=== PATIENT | male | born 1935 | race Caucasian/White ===

== ENCOUNTER 2016-12-31 18:29 | Emergency (ER) | payer MEDICARE, BC ==
[2016-12-31] MEDS ORDERED: Gelfoam 12-7 ADSORBABL SPONGE* 1 EA SPONGE TOPICAL ONE (20:41)
[2016-12-31 20:49] VITALS: BP 149/92
[2016-12-31] MEDS ORDERED: Clindamycin CAP* 150 MG PO ONE (20:49)
[2016-12-31] MEDS ORDERED: Tetan/Diph/Pertus SYR(Tdap)* 0.5 ML SYR(BOOSTRIX) use SYR IM ONE (20:52)
--- NOTE | 2016-12-31 21:18 | UC ---
Skin Complaint HPI - HPI Summary HPI Summary: CHRONIC BILATERAL LEG EDEMA, HAD SKIN TEAR ONE WEEK AGO. WOUND IS NOT HEALING; TENDERNESS AND REDNESS ARE DEVELOPING AROUND WOUND SITE. WOULD LIEK REFERREAL TO WOUND CLINIC; HAD COMPLICATIONS WITH LEG CELLULITIS IN PAST. - History of Current Complaint Chief Complaint: UCWounds Time Seen by Provider: 12/31/16 20:29 Stated Complaint: WOUND CHECK Hx Obtained From: Patient, Family/Energy Specialist Onset/Duration: Gradual Onset, Lasting Weeks, Still Present Skin Exposure Onset/Duration: Weeks Ago Onset Severity: Mild Current Severity: Moderate Location: Discrete - LEFT LOWER LEG Character: Swelling, Redness, Painful Aggravating: Touch Alleviating: Nothing Associated Signs & Symptoms: Positive: Rash, Drainage, Tenderness. Negative: Fever, Chills, Cough, Hoarseness, Throat Tightening, Bruising, Red Streaks, Joint Swelling Related History: Trauma - Allergy/Home Medications Allergies/Adverse Reactions: Allergies Allergy/AdvReac Type Severity Reaction Status Date / Time Cefadroxil [From Duricef] AdvReac Severe GI Upset Verified 12/31/16 18:44 Hydroxyzine [From Atarax] AdvReac Severe GI Upset Verified 12/31/16 18:44 Metolazone AdvReac Severe Hypotension Verified 12/31/16 18:44 Amoxicillin [From Augmentin] AdvReac Intermediate Nausea And Verified 12/31/16 18:44 Vomiting Cephalexin [From Keflex] AdvReac Intermediate Nausea And Verified 12/31/16 18:44 Vomiting Clavulanic Acid AdvReac Intermediate Nausea And Verified 12/31/16 18:44 [From Augmentin] Vomiting Home Medications: Home Medications Ferrous Gluconate TAB* [Fergon TAB*] 1 tab PO 12/31/16 [History] Review of Systems Constitutional: Negative Skin: Rash Eyes: Negative ENT: Negative Respiratory: Negative Cardiovascular: Negative Gastrointestinal: Negative Genitourinary: Negative Motor: Negative Neurovascular: Negative Musculoskeletal: Arthralgia, Edema, Myalgia Neurological: Negative Psychological: Negative All Other Systems Reviewed And Are Negative: Yes PMH/Surg Hx/FS Hx/Imm Hx Previously Healthy: Yes Other History Of: Anticoagulant Therapy - Xarelto - Surgical History Surgical History: Yes Surgery Procedure, Year, and Place: Abdominal aortic aneurysm repairs x4, [facility]. R aneurysm inguinal, [place]. Pacemaker placement, 06/2007, [facility] [place]; replaced 03/14/15. Spinal fusion x 2013, [facility]. Choleycystectomy, 11/2012, [facility] [place]. Right rotator cuff surgery, 09/2012, [facility] - Family History Known Family History: Positive: None Family History: No FHx anesthesia reaction - Social History Occupation: Retired Lives: With Family Alcohol Use: None Substance Use Type: None Smoking Status (MU): Former Smoker When Did the Patient Quit Smoking/Using Tobacco: 1968 - Immunization History Most Recent Influenza Vaccination: 03/08/15 Most Recent Tetanus Shot: 2012 Most Recent Pneumonia Vaccination: 2013 Physical Exam Triage Information Reviewed: Yes Appearance: Well-Appearing, No Pain Distress, Well-Nourished Vital Signs: Initial Vital Signs Temp 97.5 F 12/31/16 18:38 Pulse 67 12/31/16 18:38 Resp 18 12/31/16 18:38 BP 146/93 12/31/16 18:38 Pulse Ox 94 12/31/16 18:38 Vital Signs Reviewed: Yes Eye Exam: Normal ENT Exam: Normal ENT: Positive: Normal ENT inspection Dental Exam: Normal Neck exam: Normal Neck: Positive: Supple, Nontender, No Lymphadenopathy Respiratory Exam: Normal Respiratory: Positive: Chest non-tender, Lungs clear, Normal breath sounds, No respiratory distress, No accessory muscle use Cardiovascular Exam: Normal Cardiovascular: Positive: RRR, No Murmur, Pulses Normal Abdominal Exam: Normal Musculoskeletal: Positive: Strength Intact, ROM Intact, Edema @ - BILATERAL LOWER LEGS Neurological Exam: Normal Psychological Exam: Normal Skin: Positive: Other - SKIN TEAR 3CM X 2CM ANTERIOR LEFT LEG Course/Dx - Differential Diagnoses - Skin Complaint Differential Diagnoses: Cellulitis, Diabetes, Lymphadenitis, Lymphangitis - Diagnoses Provider Diagnoses: LEFT LEG CELLULITIS; CHRONIC BILATERAL LEG EDEMA; SKIN TEAR LEFT ANTERIOR LEG Discharge - Discharge Plan Condition: Stable Disposition: HOME Prescriptions: Clindamycin Cap(NF) [Cleocin 300 mg Cap(NF)] 300 mg PO TID #30 cap Patient Education Materials: Diphtheria/Pertussis/Tetanus Vaccine (By injection ), Cellulitis (ED), Skin Tear (ED) Referrals: Venancio Otero MD [Medical Doctor] - Faiza FRANCOIS,Luh Avila [Primary Care Provider] - Additional Instructions: YOU HAVE BEEN REFERRED TO THE [facility] [place] [facility] FOR PROMPT EVALUATION; PLEASE CALL [phone] TO SET UP AN APPOINTMENT.
== END 2016-12-31 21:25 | disposition home or self-care (01) ==
LOC: UCEAST 18:29
DX: S81.812A Laceration without foreign body, left lower leg, initial encounter (principal); L03.116 Cellulitis of left lower limb; X58.XXXA Exposure to other specified factors, initial encounter; Y92.9 Unspecified place or not applicable
CPT/HCPCS: 90471; 90715; 99212; A9270-GY; G0463

== ENCOUNTER 2017-01-03 11:33 | Emergency (ER) | payer MEDICARE, BC ==
[2017-01-03 12:09] VITALS: BP 131/86
--- NOTE | 2017-01-03 12:45 | UC ---
Skin Complaint HPI - HPI Summary HPI Summary: SKIN TEAR LEFT ANTERIOR LEG. TREATED WITH CLINDAMYCIN AND GELFOAM 12/31/16. HISTORY OF CHRONIC BILATERAL LEG EDEMA. LAST NIGHT VOMITING, DIARRHEA FEELING WEAK. NO FEVER. - History of Current Complaint Chief Complaint: UCGeneralIllness Time Seen by Provider: 01/03/17 12:06 Stated Complaint: SKIN COMPLAINT Hx Obtained From: Patient Onset/Duration: Gradual Onset, Lasting Weeks Skin Exposure Onset/Duration: Weeks Ago Onset Severity: Mild Current Severity: Moderate Location: Discrete - LEFT ANTERIOR LEG Character: Redness, Painful Aggravating: Touch Alleviating: Nothing Associated Signs & Symptoms: Positive: Nausea, Vomiting, Rash, Drainage, Tenderness, Red Streaks. Negative: Fever, Chills Related History: Trauma - Allergy/Home Medications Allergies/Adverse Reactions: Allergies Allergy/AdvReac Type Severity Reaction Status Date / Time Cefadroxil [From Duricef] AdvReac Severe GI Upset Verified 01/03/17 12:10 Hydroxyzine [From Atarax] AdvReac Severe GI Upset Verified 01/03/17 12:10 Metolazone AdvReac Severe Hypotension Verified 01/03/17 12:10 Amoxicillin [From Augmentin] AdvReac Intermediate Nausea And Verified 01/03/17 12:10 Vomiting Cephalexin [From Keflex] AdvReac Intermediate Nausea And Verified 01/03/17 12:10 Vomiting Clavulanic Acid AdvReac Intermediate Nausea And Verified 01/03/17 12:10 [From Augmentin] Vomiting Review of Systems Constitutional: Fatigue Skin: Rash Eyes: Negative ENT: Negative Respiratory: Negative Cardiovascular: Negative Gastrointestinal: Vomiting, Diarrhea, Nausea Genitourinary: Negative Motor: Negative Neurovascular: Negative Musculoskeletal: Edema Neurological: Negative Psychological: Negative All Other Systems Reviewed And Are Negative: Yes PMH/Surg Hx/FS Hx/Imm Hx Previously Healthy: Yes Other History Of: Anticoagulant Therapy - Xarelto - Surgical History Surgical History: Yes Surgery Procedure, Year, and Place: Abdominal aortic aneurysm repairs x4, [facility]. R aneurysm inguinal, [place]. Pacemaker placement, 06/2007, [facility] [place]; replaced 03/14/15. Right shoulder surgery. Gallbladder removed. Spinal fusion x , 2013, [facility]. Choleycystectomy, 11/2012, [facility] [place]. Right rotator cuff surgery, 09/2012, [facility] - Family History Known Family History: Positive: None Family History: No FHx anesthesia reaction - Social History Occupation: Retired Lives: With Family Alcohol Use: None Substance Use Type: None Smoking Status (MU): Former Smoker When Did the Patient Quit Smoking/Using Tobacco: 1968 - Immunization History Most Recent Influenza Vaccination: 03/08/15 Most Recent Tetanus Shot: 2012 Most Recent Pneumonia Vaccination: 2013 Physical Exam Triage Information Reviewed: Yes Appearance: Well-Appearing, No Pain Distress, Well-Nourished Vital Signs: Initial Vital Signs Temp 97.4 F 01/03/17 12:05 Pulse 80 01/03/17 12:05 Resp 16 01/03/17 12:05 BP 131/86 01/03/17 12:05 Pulse Ox 95 01/03/17 12:05 Vital Signs Reviewed: Yes Eye Exam: Normal ENT Exam: Normal ENT: Positive: Normal ENT inspection, Hearing grossly normal, TMs normal Dental Exam: Normal Neck exam: Normal Neck: Positive: Supple, Nontender, No Lymphadenopathy Respiratory Exam: Normal Respiratory: Positive: Chest non-tender, Lungs clear, Normal breath sounds, No respiratory distress, No accessory muscle use Cardiovascular Exam: Normal Cardiovascular: Positive: RRR, No Murmur, Pulses Normal, Brisk Capillary Refill Abdominal Exam: Normal Abdomen Description: Positive: Nontender, No Organomegaly Bowel Sounds: Positive: Absent Musculoskeletal: Positive: Strength Intact, ROM Intact, Edema @ - BILATERAL LEG EDEMA Neurological Exam: Normal Psychological Exam: Normal Skin: Positive: Other - ERYTHEMA LEFT ANTERIOR LEG Course/Dx - Differential Diagnoses - Skin Complaint Differential Diagnoses: Abscess, Cellulitis, Dehydration - Diagnoses Provider Diagnoses: CHRONIC BILATERAL LEG EDEMA. LEFT ANTERIOR LEG SKIN TEAR, CELLULITIS, FAILURE OF OUT PATIENT ANTIBIOTIC THERAPY - Physician Notification/Consults Discussed Patient Care With: Melody Blount Time Discussed With Above Provider: 12:15 Instructed by Provider To: MD Will See In ED Discharge - Discharge Plan Condition: Stable Disposition: TRANS HIGHER LVL OF CARE FAC
== END 2017-01-03 12:35 | disposition short-term general hospital (02) ==
LOC: UCEAST 11:33
DX: R60.9 Edema, unspecified (principal); S81.812D Laceration without foreign body, left lower leg, subsequent encounter; L03.116 Cellulitis of left lower limb; Z87.891 Personal history of nicotine dependence
CPT/HCPCS: 99212; G0463

== ENCOUNTER 2017-01-03 13:25 | Emergency (ER) | payer MEDICARE, BC ==
[2017-01-03] MEDS ORDERED: Vancomycin(*) 1,000 MG in NS 0.9% 250 ML* 250 ML IVPB ONE (13:59)
[2017-01-03] MEDS ORDERED: Ciprofloxacin 400MG IVPREMIX(* 400 MG/200 ML BAG IVPB ONE (13:59)
[2017-01-03] MEDS ORDERED: NS 0.9% 1000 ML* 1,000 ML IV ONE (14:00)
[2017-01-03] MEDS ORDERED: metroNIDAZOLE IV 500 MG/100ML* 500 MG/100 ML BAG IVPB ONE (14:00)
[2017-01-03] MEDS ORDERED: Ondansetron INJ* 2 MG/ML VIAL IV ONE (14:37)
[2017-01-03 14:41] LABS: Hematocrit 39 % (42-52); Hemoglobin 13.1 g/dl (14.0-18.0); Mean Corpuscular HGB Conc 34 g/dl (31-36); Mean Corpuscular Hemoglobin 33 pg (27-31); Mean Corpuscular Volume 97 fL (80-94); Mean Platelet Volume 7 um3 (7.4-10.4); Red Cell Distribution Width 16 % (10.5-15); White Blood Count 4.8 10^3/ul (3.5-10.8)
[2017-01-03 14:56] LABS: Albumin 3.5 g/dL (3.2-5.2); BUN/Creatinine Ratio 41.9 (8-20); Calcium 8.9 mg/dL (8.6-10.3); EGFR African American 71.8 (>60); EGFR Non-African American 55.8 (>60); Globulin 2.9 g/dL (2-4); Potassium 4.9 mmol/L (3.5-5.0); Total Bilirubin 1.4 mg/dL (0.2-1.0); Total Protein 6.4 g/dL (6.4-8.9)
[2017-01-03 15:38] LABS: Urine Bacteria Absent (Absent); Urine Bilirubin Negative (Negative); Urine Glucose Negative (Negative); Urine Nitrite Negative (Negative)
--- NOTE | 2017-01-03 18:24 | ED ---
Jerardo Beebe Salem, scribed for Jese Goldberg MD on 01/03/17 at 1414 . Lower Extremity - HPI Summary HPI Summary: Patient is a 81 y/o M who presents to the ED with an open wound to his LLE for the past week. His , who is a former nurse, states that pt hit his leg on the corner of the oven door. Per , 3 days ago, area surrounding wound was warm to touch and erythematous. He was seen at the urgent care on this day and given Clindamycin, but he has not been able to tolerate it. He reports vomiting , but denies diarrhea. Pt also denies pain to wound or abd pain, but reports non -purulent drainage and weakness. Pt has a hx of bleeding excessively and healing slowly, per . He also has a hx of edema, worse in LLE. He has an appointment with the wound clinic in 5 days. No PMHx of DM. Pt takes 81 mg of ASA. - History of Current Complaint Chief Complaint: EDRashSkinAbscess Stated Complaint: LT LEG LAC Time Seen by Provider: 01/03/17 13:38 Hx Obtained From: Patient, Family/Cell Attendant Helper Mechanism Of Injury: Direct Blow Onset of Pain: Immediate Onset/Duration: Days Severity Initially: Moderate Severity Currently: Moderate Pain Intensity: 0 Pain Scale Used: 0-10 Numeric Timing: Constant Location: Is Discrete @ - LLE. Associated Signs And Symptoms: Positive: Negative Aggravating Factor(s): Nothing Alleviating Factor(s): Nothing Able to Bear Weight: Yes - Allergies/Home Medications Allergies/Adverse Reactions: Allergies Allergy/AdvReac Type Severity Reaction Status Date / Time Cefadroxil [From Duricef] AdvReac Severe GI Upset Verified 01/03/17 12:10 Hydroxyzine [From Atarax] AdvReac Severe GI Upset Verified 01/03/17 12:10 Metolazone AdvReac Severe Hypotension Verified 01/03/17 12:10 Amoxicillin [From Augmentin] AdvReac Intermediate Nausea And Verified 01/03/17 12:10 Vomiting Cephalexin [From Keflex] AdvReac Intermediate Nausea And Verified 01/03/17 12:10 Vomiting Clavulanic Acid AdvReac Intermediate Nausea And Verified 01/03/17 12:10 [From Augmentin] Vomiting PMH/Surg Hx/FS Hx/Imm Hx Endocrine/Hematology History: Reports: Hx Anticoagulant Therapy - Xarelto, Hx Thyroid Disease, Hx Anemia Denies: Hx Diabetes Cardiovascular History: Reports: Hx Aneurysm - multiple including AAA, Hx Congestive Heart Failure, Hx Coronary Artery Disease, Hx Hypertension, Hx Pacemaker/ICD - 9/03/20, Hx Peripheral Vascular Disease, Other Cardiovascular Problems/Disorders - right groin aneurysm Respiratory History: Reports: Hx Sleep Apnea - CPAP 8cm Denies: Hx Asthma - "but coughs", Hx Chronic Obstructive Pulmonary Disease ( COPD) GI History: Reports: Hx Hiatal Hernia - bulge but no pain or other symptoms Denies: Hx Ulcer Comment Only: Hx Gastrointestinal Bleed - this admission History: Denies: Hx Renal Disease Musculoskeletal History: Reports: Hx Back Problems Denies: Hx Arthritis, Hx Rheumatoid Arthritis, Hx Osteoporosis Sensory History: Reports: Hx Contacts or Glasses - reading glasses, Hx Macular Degeneration - R eye Opthamlomology History: Reports: Hx Contacts or Glasses - reading glasses, Hx Macular Degeneration - R eye Neurological History: Reports: Hx Migraine Denies: Hx Dementia, Hx Headaches, Hx Seizures, Hx Transient Ischemic Attacks (TIA) Psychiatric History: Denies: Hx Substance Abuse - Surgical History Surgery Procedure, Year, and Place: Abdominal aortic aneurysm repairs x4, [facility]. R aneurysm inguinal, [place]. Pacemaker placement, 06/2007, [facility] [place]; replaced 03/14/15. Right shoulder surgery. Gallbladder removed. Spinal fusion x , 2013, [facility]. Choleycystectomy, 11/2012, [facility] [place]. Right rotator cuff surgery, 09/2012, [facility] Hx Anesthesia Reactions: No Infectious Disease History: No Infectious Disease History: Denies: Hx Clostridium Difficile, Hx Hepatitis, Hx Human Immunodeficiency Virus (HIV), Hx of Known/Suspected MRSA, Hx Shingles, Hx Tuberculosis, Hx Known/ Suspected VRE, Hx Known/Suspected VRSA, History Other Infectious Disease, Traveled Outside the [place] in Last 30 Days - Family History Known Family History: Positive: Cardiac Disease - Social History Alcohol Use: Rare Hx Substance Use: No Substance Use Type: Reports: None Hx Tobacco Use: Yes Smoking Status (MU): Former Smoker Review of Systems Positive: Vomiting. Negative: Abdominal Pain, Diarrhea Positive: Edema Skin: Other - No pain. Positive: Other - LLE wound: warm to touch and erythematous. Non-purulent drainage Positive: Weakness All Other Systems Reviewed And Are Negative: Yes Physical Exam - Summary Physical Exam Summary: The patient is well-nourished in no acute distress and in no acute pain. The skin is warm and dry and skin color reflects adequate perfusion. HEENT: The head is normocephalic and atraumatic. The pupils are equal and reactive. The conjunctivae are clear and without drainage. Nares are patent and without drainage. Mouth reveals dry mucous membranes and the throat is without erythema and exudate. Neck is supple with full range of motion and non-tender. There are no carotid bruits. There is no neck vein distension. Respiratory: Chest is non-tender. Lungs are clear to auscultation and breath sounds are symmetrical and equal. Cardiovascular: Heart is regular rate and rhythm. There is no murmur or rub auscultated. Pulses are symmetrical and equal. Abdomen: The abdomen is soft, non-tender, and obese. There are normal bowel sounds heard in all four quadrants. Musculoskeletal: There is no back pain noted. Extremities are non-tender with full range of motion. There is good capillary refill and good pulses. LLE: large area of erythema. Area of open wound: 1 cm. No debridement. No lymphangitis. Marked edema. Full ROM. Neurological: Patient is alert and oriented to person, place and time. The patient has symmetrical motor strength in all four extremities. Psychiatric: The patient has an appropriate affect and does not exhibit any anxiety or depression. Triage Information Reviewed: Yes Vital Signs On Initial Exam: Initial Vitals Temp Pulse Resp BP Pulse Ox 97.0 F 79 16 158/91 95 01/03/17 13:28 01/03/17 13:28 01/03/17 13:28 01/03/17 13:28 01/03/17 13:28 Vital Signs Reviewed: Yes - Gael Coma Scale Coma Scale Total: 15 Diagnostics - Vital Signs Vital Signs Temp Pulse Resp BP Pulse Ox 01/03/17 13:45 97.5 F 71 12 128/83 98 01/03/17 13:28 97.0 F 79 16 158/91 95 - Laboratory Lab Results: Lab Results 01/03/17 01/03/17 01/03/17 Range/Units 14:13 14:13 14:13 WBC 4.8 (3.5-10.8) 10^3/ul RBC 4.00 (4.0-5.4) 10^6/ul Hgb 13.1 L (14.0-18.0) g/dl Hct 39 L (42-52) % MCV 97 H (80-94) fL MCH 33 H (27-31) pg MCHC 34 (31-36) g/dl RDW 16 H (10.5-15) % Plt Count 131 L (150-450) 10^3/ul MPV 7 L (7.4-10.4) um3 Neut % (Auto) 68.8 (38-83) % Lymph % (Auto) 15.1 L (25-47) % Thayer % (Auto) 10.8 H (1-9) % Eos % (Auto) 4.8 (0-6) % Baso % (Auto) 0.5 (0-2) % Absolute Neuts (auto) 3.3 (1.5-7.7) 10^3/ul Absolute Lymphs (auto) 0.7 L (1.0-4.8) 10^3/ul Absolute Monos (auto) 0.5 (0-0.8) 10^3/ul Absolute Eos (auto) 0.2 (0-0.6) 10^3/ul Absolute Basos (auto) 0 (0-0.2) 10^3/ul Absolute Nucleated RBC 0 10^3/ul Nucleated RBC % 0 INR (Anticoag Therapy) 1.03 (0.89-1.11) APTT 29.0 (26.0-36.3) seconds Sodium 135 (133-145) mmol/L Potassium 4.9 (3.5-5.0) mmol/L Chloride 107 (101-111) mmol/L Carbon Dioxide 21 L (22-32) mmol/L Anion Gap 7 (2-11) mmol/L BUN 52 H (6-24) mg/dL Creatinine 1.24 H (0.67-1.17) mg/dL Est GFR ( Amer) 71.8 (>60) Est GFR (Non-Af Amer) 55.8 (>60) BUN/Creatinine Ratio 41.9 H (8-20) Glucose 97 (70-100) mg/dL Lactic Acid (0.5-2.0) mmol/L Calcium 8.9 (8.6-10.3) mg/dL Total Bilirubin 1.40 H (0.2-1.0) mg/dL AST 17 (13-39) U/L ALT 15 (7-52) U/L Alkaline Phosphatase 58 (34-104) U/L Total Protein 6.4 (6.4-8.9) g/dL Albumin 3.5 (3.2-5.2) g/dL Globulin 2.9 (2-4) g/dL Albumin/Globulin Ratio 1.2 (1-3) Urine Color Urine Appearance Urine pH (5-9) Ur Specific [place] (1.010-1.030) Urine Protein (Negative) Urine Ketones (Negative) Urine Blood (Negative) Urine Nitrate (Negative) Urine Bilirubin (Negative) Urine Urobilinogen (Negative) Ur Leukocyte Esterase (Negative) Urine WBC (Auto) (Absent) Urine RBC (Auto) (Absent) Urine Bacteria (Absent) Urine Glucose (Negative) 01/03/17 01/03/17 Range/Units 14:13 15:15 WBC (3.5-10.8) 10^3/ul RBC (4.0-5.4) 10^6/ul Hgb (14.0-18.0) g/dl Hct (42-52) % MCV (80-94) fL MCH (27-31) pg MCHC (31-36) g/dl RDW (10.5-15) % Plt Count (150-450) 10^3/ul MPV (7.4-10.4) um3 Neut % (Auto) (38-83) % Lymph % (Auto) (25-47) % Thayer % (Auto) (1-9) % Eos % (Auto) (0-6) % Baso % (Auto) (0-2) % Absolute Neuts (auto) (1.5-7.7) 10^3/ul Absolute Lymphs (auto) (1.0-4.8) 10^3/ul Absolute Monos (auto) (0-0.8) 10^3/ul Absolute Eos (auto) (0-0.6) 10^3/ul Absolute Basos (auto) (0-0.2) 10^3/ul Absolute Nucleated RBC 10^3/ul Nucleated RBC % INR (Anticoag Therapy) (0.89-1.11) APTT (26.0-36.3) seconds Sodium (133-145) mmol/L Potassium (3.5-5.0) mmol/L Chloride (101-111) mmol/L Carbon Dioxide (22-32) mmol/L Anion Gap (2-11) mmol/L BUN (6-24) mg/dL Creatinine (0.67-1.17) mg/dL Est GFR ( Amer) (>60) Est GFR (Non-Af Amer) (>60) BUN/Creatinine Ratio (8-20) Glucose (70-100) mg/dL Lactic Acid 1.0 (0.5-2.0) mmol/L Calcium (8.6-10.3) mg/dL Total Bilirubin (0.2-1.0) mg/dL AST (13-39) U/L ALT (7-52) U/L Alkaline Phosphatase (34-104) U/L Total Protein (6.4-8.9) g/dL Albumin (3.2-5.2) g/dL Globulin (2-4) g/dL Albumin/Globulin Ratio (1-3) Urine Color Yellow Urine Appearance Clear Urine pH 5.0 (5-9) Ur Specific [place] 1.013 (1.010-1.030) Urine Protein Negative (Negative) Urine Ketones Negative (Negative) Urine Blood 2+ H (Negative) Urine Nitrate Negative (Negative) Urine Bilirubin Negative (Negative) Urine Urobilinogen Negative (Negative) Ur Leukocyte Esterase Negative (Negative) Urine WBC (Auto) Absent (Absent) Urine RBC (Auto) Trace(0-2/hpf) (Absent) Urine Bacteria Absent (Absent) Urine Glucose Negative (Negative) Result Diagrams: 01/03/17 14:13 01/03/17 14:13 Lab Statement: Any lab studies that have been ordered have been reviewed, and results considered in the medical decision making process. Re-Evaluation - Re-Evaluation First Eval Re-Evaluation Time: 15:16 Comment: Reviewed labs with pt. Pt would like to be DC'd home. Lower Extremity Course/Dx - Course Course Of Treatment: 81 y/o M presents with an open wound to his LLE for the past week. Per , 3 days ago, area surrounding wound was warm to touch and erythematous. Pt denies pain to wound or abd pain, but reports non-purulent drainage and weakness. He received Cipro, Vancomycin, Flagyl, Zofran, and fluids in the ED course. Pt would like to be DC'd. Will be sent home with Zofran and Bactrim. - Diagnoses Differential Diagnosis/HQI/PQRI: Positive: Cellulitis, Infection, Osteomyelitis , Other - dehydration Provider Diagnoses: Cellulitis of left lower extremity, Dehydration Discharge - Discharge Plan Condition: Stable Disposition: HOME Prescriptions: Ondansetron ODT TAB* [Zofran 4 MG Odt TAB*] 4 mg PO Q8H PRN #20 tab.odt PRN Reason: Nausea Sulfamethox/Trimethoprim DS* [Bactrim DS 800/160 TAB*] 1 tab PO BID #20 tab Patient Education Materials: Dehydration (ED), Cellulitis (ED) Referrals: Faiza FRANCOIS,Luh Avila [Primary Care Provider] - Additional Instructions: Please follow up with your primary care provider. The documentation as recorded by the Jerardo clark Salem accurately reflects the service I personally performed and the decisions made by , Jese Goldberg MD.
[2017-01-03 19:10] VITALS: BP 125/78
== END 2017-01-03 19:13 | disposition home or self-care (01) ==
LOC: ED 13:25
DX: R11.10 Vomiting, unspecified (principal); E86.0 Dehydration; L03.116 Cellulitis of left lower limb; R60.9 Edema, unspecified; Z87.891 Personal history of nicotine dependence; R53.1 Weakness
CPT/HCPCS: 36415; 80053; 81003; 81015; 83605; 85025; 85610; 85730; 87040; 87070; 87077; 87186; 87205; 87640; 87641; 96374; 99282; J0744; J2405; J3370

== ENCOUNTER 2017-06-02 17:12 | Emergency (ER) | payer MEDICARE, BC ==
[2017-06-02 17:43] VITALS: BP 139/89
[2017-06-02] MEDS ORDERED: Tetan/Diph/Pertus SYR(Tdap)* 0.5 ML SYR(BOOSTRIX) use SYR IM ONE ×2 (19:06→19:23)
--- NOTE | 2017-06-02 19:27 | UC ---
Minor Trauma HPI - HPI Summary HPI Summary: 81 year old male here with injury of right arm. He trip and fell on a fence that was on the ground. He denies head trauma or loc. No shoulder pain. He came here for evaluation of abrasion over right arm. - History of Current Complaint Chief Complaint: UCUpperExtremity Stated Complaint: ARM INJURY Time Seen by Provider: 06/02/17 18:44 Hx Obtained From: Patient Onset/Duration: Sudden Onset Onset Of Pain: Immediate Severity Initially: Mild Mechanism Of Injury: Fall From A Standing Position - Allergies/Home Medications Allergies/Adverse Reactions: Allergies Allergy/AdvReac Type Severity Reaction Status Date / Time Cefadroxil [From Duricef] AdvReac Severe GI Upset Verified 01/03/17 12:10 Hydroxyzine [From Atarax] AdvReac Severe GI Upset Verified 01/03/17 12:10 Metolazone AdvReac Severe Hypotension Verified 01/03/17 12:10 Amoxicillin [From Augmentin] AdvReac Intermediate Nausea And Verified 01/03/17 12:10 Vomiting Cephalexin [From Keflex] AdvReac Intermediate Nausea And Verified 01/03/17 12:10 Vomiting Clavulanic Acid AdvReac Intermediate Nausea And Verified 01/03/17 12:10 [From Augmentin] Vomiting PMH/Surg Hx/FS Hx/Imm Hx Other History Of: Anticoagulant Therapy - Xarelto - Surgical History Surgical History: Yes Surgery Procedure, Year, and Place: Abdominal aortic aneurysm repairs x4, [facility]. R aneurysm inguinal, [place]. [place]emaker [place] [facility] [place]. Right shoulder surgery. Gallbladder removed. Spinal fusion x , 2013, [facility]. [place]ectomy, [place] [facility] [place] surgery, 09/2012, [facility] - Family History Known Family History: Positive: None, Cardiac Disease Family History: No FHx anesthesia reaction - Social History Alcohol Use: Rare Substance Use Type: None Smoking Status (MU): Former Smoker When Did the Patient Quit Smoking/Using Tobacco: 1968 - Immunization History Most Recent Influenza Vaccination: 03/08/15 Most Recent Tetanus Shot: 2012 Most Recent Pneumonia Vaccination: 2013 Review of Systems Constitutional: Negative Skin: Negative Eyes: Negative ENT: Negative Respiratory: Negative Cardiovascular: Negative Gastrointestinal: Negative Genitourinary: Negative Motor: Negative Neurovascular: Negative Musculoskeletal: Negative Neurological: Negative Psychological: Negative All Other Systems Reviewed And Are Negative: Yes Physical Exam Triage Information Reviewed: Yes Vital Signs: Initial Vital Signs Temp 36.3 C 06/02/17 17:35 Pulse 74 06/02/17 17:35 Resp 18 06/02/17 17:35 BP 139/89 06/02/17 17:35 Pulse Ox 95 06/02/17 17:35 Vital Signs Reviewed: Yes Eye Exam: Normal ENT Exam: Normal Dental Exam: Normal Neck exam: Normal Neck: Positive: Supple, Nontender Respiratory Exam: Normal Cardiovascular Exam: Normal Abdominal Exam: Normal Musculoskeletal Exam: Normal Musculoskeletal: Positive: Other: - right arm with abrasion to dorsal aspect that 4X4 cm with avulsed superficial skin Otherwise, full range of motion over elbow, shoulder and wrist. Mild abrasion to left ring and middle finger ( removed ring) Neurological Exam: Normal Psychological Exam: Normal Skin Exam: Normal Skin: Positive: breakdown Minor Trauma Course/Dx - Course Course Of Treatment: Abrasion to right arm. Dressed in xeroform. Avulsed superficial skin removed. Tetanus rx - Differential Dx/Diagnosis Differential Diagnosis/HQI/PQRI: Abrasion(s) Provider Diagnoses: Abrasion to right arm Discharge - Discharge Plan Condition: Good Disposition: HOME Discharge Disposition Comment: Wound keep and dry. Patient Education Materials: Abrasion (ED) Referrals: Faiza FRANCOIS,Luh Avila [Primary Care Provider] -
== END 2017-06-02 19:41 | disposition home or self-care (01) ==
LOC: UCEAST 17:12
DX: S40.811A Abrasion of right upper arm, initial encounter (principal); W01.198A Fall on same level from slipping, tripping and stumbling with subsequent striking against other object, initial encounter; Y93.9 Activity, unspecified; Y92.9 Unspecified place or not applicable; Y99.9 Unspecified external cause status; Z87.891 Personal history of nicotine dependence
CPT/HCPCS: 90715; 99212; G0463

== ENCOUNTER 2017-06-03 14:13 | Emergency (ER) | payer MEDICARE, BC ==
[2017-06-03 14:28] VITALS: BP 132/84
[2017-06-03] MEDS ORDERED: Silver Nitrate/Potassium Nitr* 1 EA STICK ONE (15:00)
--- NOTE | 2017-06-03 15:38 | ED ---
Giovanny Beebe Benjamin, scribed for Amadou Lara MD on 06/03/17 at 1504 . Skin Complaint - HPI Summary HPI Summary: 81yo male presents with a skin evulsion on the right forearm after a fall yesterday. The wound is wrapped in dressing but is still actively bleeding. Pt was seen at yesterday, and was told to come to ED if bleeding continues. Pt was formerly on xeralto, but not anymore. Pt takes baby aspirin daily. - History of Current Complaint Chief Complaint: EDExtremityUpper Time Seen by Provider: 06/03/17 14:29 Stated Complaint: RIGHT ARM WOUND Hx Obtained From: Patient, Family/Dress Draper - Onset/Duration: Started Days Ago - 1 day, Traumatic, Still Present Skin Exposure Onset/Duration: Days Ago - 1 day ago Timing: Constant Onset Severity: Moderate Current Severity: Moderate Pain Intensity: 0 Pain Scale Used: 0-10 Numeric Skin Location: Arm - right forearm Aggravating Symptom(s): Nothing Alleviating Symptom(s): Nothing Associated Signs & Symptoms: Negative - Additional Pertinent History Primary Care Physician: [id number] - Allergy/Home Medications Allergies/Adverse Reactions: Allergies Allergy/AdvReac Type Severity Reaction Status Date / Time Cefadroxil [From Duricef] AdvReac Severe GI Upset Verified 01/03/17 12:10 Hydroxyzine [From Atarax] AdvReac Severe GI Upset Verified 01/03/17 12:10 Metolazone AdvReac Severe Hypotension Verified 01/03/17 12:10 Amoxicillin [From Augmentin] AdvReac Intermediate Nausea And Verified 01/03/17 12:10 Vomiting Cephalexin [From Keflex] AdvReac Intermediate Nausea And Verified 01/03/17 12:10 Vomiting Clavulanic Acid AdvReac Intermediate Nausea And Verified 01/03/17 12:10 [From Augmentin] Vomiting PMH/Surg Hx/FS Hx/Imm Hx Endocrine/Hematology History: Reports: Hx Anticoagulant Therapy - Xarelto, Hx Thyroid Disease, Hx Anemia Denies: Hx Diabetes Cardiovascular History: Reports: Hx Aneurysm - multiple including AAA, Hx Congestive Heart Failure, Hx Coronary Artery Disease, Hx Hypertension, Hx Pacemaker/ICD - 9/9/15, Hx Peripheral Vascular Disease, Other Cardiovascular Problems/Disorders - right groin aneurysm Respiratory History: Reports: Hx Sleep Apnea - CPAP 8cm Denies: Hx Asthma - "but coughs", Hx Chronic Obstructive Pulmonary Disease ( COPD) GI History: Reports: Hx Hiatal Hernia - bulge but no pain or other symptoms Denies: Hx Ulcer Comment Only: Hx Gastrointestinal Bleed - this admission History: Denies: Hx Renal Disease Musculoskeletal History: Reports: Hx Back Problems Denies: Hx Arthritis, Hx Rheumatoid Arthritis, Hx Osteoporosis Sensory History: Reports: Hx Contacts or Glasses - reading glasses, Hx Macular Degeneration - R eye Opthamlomology History: Reports: Hx Contacts or Glasses - reading glasses, Hx Macular Degeneration - R eye Neurological History: Reports: Hx Migraine Denies: Hx Dementia, Hx Headaches, Hx Seizures, Hx Transient Ischemic Attacks (TIA) Psychiatric History: Denies: Hx Substance Abuse - Surgical History Surgery Procedure, Year, and Place: Abdominal aortic aneurysm repairs x4, [facility]. [place] inguinal, [place]. [place] [facility] [place] Right shoulder surgery. Gallbladder removed. Spinal fusion x 2013, [facility]. [place] [facility] [place], 09/2012, [facility] Hx Anesthesia Reactions: No Infectious Disease History: No Infectious Disease History: Denies: Hx Clostridium Difficile, Hx Hepatitis, Hx Human Immunodeficiency Virus (HIV), Hx of Known/Suspected MRSA, Hx Shingles, Hx Tuberculosis, Hx Known/ Suspected VRE, Hx Known/Suspected VRSA, History Other Infectious Disease, Traveled Outside the [place] in Last 30 Days - Family History Known Family History: Positive: Cardiac Disease Family History: No FHx anesthesia reaction - Social History Lives: With Family Alcohol Use: Rare Hx Substance Use: No Substance Use Type: Reports: None Hx Tobacco Use: Yes Smoking Status (MU): Former Smoker Review of Systems Constitutional: Negative Eyes: Negative ENT: Negative Cardiovascular: Negative Respiratory: Negative Gastrointestinal: Negative Genitourinary: Negative Musculoskeletal: Negative Positive: Other - right forearm bleeding. Neurological: Negative Psychological: Normal All Other Systems Reviewed And Are Negative: Yes Physical Exam - Summary Physical Exam Summary: VITAL SIGNS: Reviewed. GENERAL: Patient is a well-developed and nourished MALE who is lying comfortable in the stretcher. Patient is not in any acute respiratory distress. HEAD AND FACE: No signs of trauma. No ecchymosis, hematomas or skull depressions. No sinus tenderness. EYES: PERRLA, EOMI x 2, No injected conjunctiva, no nystagmus. EARS: Hearing grossly intact. Ear canals and tympanic membranes are within normal limits. MOUTH: Oropharynx within normal limits. NECK: Supple, trachea is midline, no adenopathy, no JVD, no carotid bruit, no c- spine tenderness, neck with full ROM. CHEST: Symmetric, no tenderness at palpation LUNGS: Clear to auscultation bilaterally. No wheezing or crackles. CVS: Regular rate and rhythm, S1 and S2 present, no murmurs or gallops appreciated. ABDOMEN: Soft, non-tender. No signs of distention. No rebound no guarding, and no masses palpated. Bowel sounds are normal. EXTREMITIES: FROM in all major joints, no edema, no cyanosis or clubbing. NEURO: Alert and oriented x 3. No acute neurological deficits. Speech is normal and follows commands. SKIN: Dry and warm. Large skin avulsion over the right forearm with oozing blood. No signs of infection. Pt has skin some loss. Triage Information Reviewed: Yes Vital Signs On Initial Exam: Initial Vitals Temp Pulse Resp BP Pulse Ox 98.1 F 76 18 132/84 96 06/03/17 14:23 06/03/17 14:23 06/03/17 14:23 06/03/17 14:23 06/03/17 14:23 Vital Signs Reviewed: Yes Procedures - Procedure Summary Procedure Summary: Irrigated the wound, and applied surgicel. Covered with xerofoam with good hemostasis. Wound was dressed with gauss and coban dressing. Diagnostics - Vital Signs Vital Signs Temp Pulse Resp BP Pulse Ox 06/03/17 14:23 98.1 F 76 18 132/84 96 - Laboratory Lab Statement: Any lab studies that have been ordered have been reviewed, and results considered in the medical decision making process. Course/Dx - Course Course Of Treatment: 81yo male presents with a skin evulsion on the right forearm after a fall yesterday. The wound is wrapped in dressing but is still actively bleeding. Pt was seen at yesterday, and was told to come to ED if bleeding continues. Pt was formerly on xeralto, but not anymore. Pt takes baby aspirin daily. - Diagnoses Provider Diagnoses: Large skin avulsion over the right fore Discharge - Discharge Plan Condition: Stable Disposition: HOME Patient Education Materials: Skin Avulsion (ED) Referrals: Faiza FRANCOIS,Luh Avila [Primary Care Provider] - [facility] [Outside] Additional Instructions: Elevate your right arm with a sling. Please follow up with wound care. RETURN TO EMERGENCY DEPARTMENT FOR ANY NEW OR WORSENING SYMPTOMS The documentation as recorded by the Giovanny clark Benjamin accurately reflects the service I personally performed and the decisions made by me, Amadou Lara MD.
== END 2017-06-03 15:43 | disposition home or self-care (01) ==
LOC: ED 14:13
DX: S51.811A Laceration without foreign body of right forearm, initial encounter (principal); W19.XXXA Unspecified fall, initial encounter; Y92.9 Unspecified place or not applicable; Z79.82 Long term (current) use of aspirin; Z87.891 Personal history of nicotine dependence; Z79.01 Long term (current) use of anticoagulants; I50.9 Heart failure, unspecified; I25.10 Atherosclerotic heart disease of native coronary artery without angina pectoris; I10 Essential (primary) hypertension; Z95.810 Presence of automatic (implantable) cardiac defibrillator; I73.9 Peripheral vascular disease, unspecified
CPT/HCPCS: 12001; 99282; A9270-GY

== ENCOUNTER 2017-11-10 10:48 | Emergency (ER) | payer MEDICARE, BC ==
[2017-11-10 11:04] VITALS: BP 171/92
--- NOTE | 2017-11-10 11:45 | UC ---
Skin Complaint HPI - HPI Summary HPI Summary: Patient is an 82-year-old male with a history of diabetes, chronic kidney disease and skin wounds with bilateral lower extremity edema presents to the with a skin avulsion to the left lower extremity measuring approximately 6 cm x 4 cm in length. He endorses receiving swelling today, but endorses bilateral leg edema at baseline. He is prescribed 20 mg torsemide daily, but hasn't been only taking 10 mg per his . He has been seen by Dr. Otero in the past for skin wounds and states he has prolonged healing times. Takes baby aspirin daily but denies any other blood thinners. Bleeding is somewhat controlled on arrival. He denies any pain to the area. - History of Current Complaint Chief Complaint: UCLaceration Stated Complaint: LEG LAC Hx Obtained From: Patient, Family/Barber Shop Operator Onset/Duration: Sudden Onset Skin Exposure Onset/Duration: Hours Ago Timing: Constant Onset Severity: Mild Current Severity: Mild Pain Intensity: 2 Pain Scale Used: 0-10 Numeric Aggravating Factor(s): Nothing Alleviating Factor(s): Nothing Associated Signs & Symptoms: Positive: Negative - Allergy/Home Medications Allergies/Adverse Reactions: Allergies Allergy/AdvReac Type Severity Reaction Status Date / Time amoxicillin [From Augmentin] Allergy Nausea And Verified 11/10/17 11:54 Vomiting cefadroxil [From Duricef] Allergy GI Upset Verified 11/10/17 11:54 cephalexin Allergy Nausea And Verified 11/10/17 11:54 Vomiting clavulanic acid Allergy Nausea And Verified 11/10/17 11:54 [From Augmentin] Vomiting hydroxyzine [From Atarax] Allergy GI Upset Verified 11/10/17 11:55 metolazone Allergy See Comment Verified 11/10/17 11:55 Home Medications: Home Medications Acetaminophen TAB* [Tylenol TAB*] 650 mg PO Q4H PRN 11/10/17 [History Confirmed 11/10/17] Ibuprofen TAB* [Advil TAB*] 200 mg PO Q6H PRN 11/10/17 [History Confirmed ] Omeprazole CAP* [Prilosec CAP* 20 MG] 40 mg PO DAILY 11/10/17 [History Confirmed 11/10/17] Review of Systems Constitutional: Negative Skin: Negative Respiratory: Negative Cardiovascular: Negative Genitourinary: Negative Neurological: Negative Psychological: Negative Is Patient Immunocompromised?: No All Other Systems Reviewed And Are Negative: Yes PMH/Surg Hx/FS Hx/Imm Hx Previously Healthy: Yes Other History Of: Anticoagulant Therapy - Xarelto - Surgical History Surgical History: Yes Surgery Procedure, Year, and Place: Abdominal aortic aneurysm repairs x4, [facility]. R aneurysm inguinal, [place]. Pacemaker placement, 06/2007, [facility] [place]; replaced 03/14/15. Right shoulder surgery. Gallbladder removed. Spinal fusion x , 2013, [facility]. Choleycystectomy, 11/2012, [facility] [place]. Right rotator cuff surgery, 09/2012, [facility] - Family History Known Family History: Positive: None, Cardiac Disease Family History: No FHx anesthesia reaction - Social History Occupation: Unemployed Lives: With Family Alcohol Use: None Substance Use Type: None Smoking Status (MU): Former Smoker When Did the Patient Quit Smoking/Using Tobacco: 1968 - Immunization History Most Recent Influenza Vaccination: 03/08/15 Most Recent Tetanus Shot: 2012 Most Recent Pneumonia Vaccination: 2013 Physical Exam Triage Information Reviewed: Yes Appearance: Well-Appearing, No Pain Distress, Well-Nourished Vital Signs: Initial Vital Signs Temp 98.3 F 11/10/17 10:56 Pulse 63 11/10/17 10:56 Resp 16 11/10/17 10:56 BP 171/92 11/10/17 10:56 Pulse Ox 96 11/10/17 10:56 Vital Signs Reviewed: Yes Eye Exam: Normal Eyes: Positive: Conjunctiva Clear Neck exam: Normal Neck: Positive: Supple, No Lymphadenopathy Respiratory Exam: Normal Respiratory: Positive: Chest non-tender, Lungs clear Musculoskeletal Exam: Normal Musculoskeletal: Positive: Edema @ - +3 pitting edema bilaterally to the lower extremities Psychological Exam: Normal Psychological: Positive: Normal Response To Family Skin: Positive: Other - 4x6cm skin avulsion Laceration Repair - Laceration Repair 1 Description: Irregular : No Repair Necessary Laceration Size After Repair: Length (cm) - 6, Width (mm) - 4 Modified For Repair: No Cleansing Completed Via Routine Prep: Yes Irrigation With Pressure Irrigation Device: No Course/Dx - Course Course Of Treatment: During the course of treatment, the patient is evaluated for skin avulsion to the left lower extremity measuring 6 x 4 cm. The area is extremely superficial and does not require suture repair. Also the anterior portion of the skin is thin and would tear upon lac repair. The area was cleansed thoroughly with normal saline. Xeroform occlusive caused to the area, Kerlix gauze wrapped and Chava wrapped to decrease bleeding, as well as compression to the area. Weeping from the wound and around the wound. I have instructed the patient to take his normal dose of torsemide 20 mg, keep the area Chava wrapped, elevate the legs and follow-up up with Dr. Otero. I have given him doxycycline due to his diabetes, chronic kidney disease and delayed healing wounds for his high risk of infection. - Diagnoses Provider Diagnoses: Skin Avulsion Discharge - Sign-Out/Discharge Documenting (check all that apply): Discharge/Admit/Transfer - Discharge Plan Condition: Stable Disposition: HOME Prescriptions: DOXYcycline CAP(*) [DOXYcycline 100MG CAP(*)] 100 mg PO BID #20 cap Patient Education Materials: Skin Avulsion (ED) Referrals: Do Oquendo MD [Primary Care Provider] - Additional Instructions: Please follow-up with Dr. Otero this week Keep the leg elevated Use the 20mg of Torsemide as long as your leg continues to be swollen. Wrap the leg ever 24 hours as shown - Billing Disposition and Condition Condition: STABLE Disposition: HOME
== END 2017-11-10 11:50 | disposition home or self-care (01) ==
LOC: UCEAST 10:48
DX: S81.812A Laceration without foreign body, left lower leg, initial encounter (principal); W26.9XXA Contact with unspecified sharp object(s), initial encounter; Y93.89 Activity, other specified; Y92.810 Car as the place of occurrence of the external cause; R60.0 Localized edema; E11.22 Type 2 diabetes mellitus with diabetic chronic kidney disease; N18.9 Chronic kidney disease, unspecified; Z95.0 Presence of cardiac pacemaker; Z79.01 Long term (current) use of anticoagulants; Z88.1 Allergy status to other antibiotic agents; Z88.0 Allergy status to penicillin; Z88.8 Allergy status to other drugs, medicaments and biological substances; Z87.891 Personal history of nicotine dependence
CPT/HCPCS: 99212; G0463

== ENCOUNTER 2017-11-28 13:20 | Emergency (ER) | payer MEDICARE, BC ==
[2017-11-28 15:03] VITALS: BP 133/79
--- NOTE | 2017-11-28 17:55 | ED ---
Back Pain - HPI Summary HPI Summary: The patient is an 82-year-old male with a complicated PMH. History of 2 back surgeries resulting in bilateral leg weakness. History of 4 AAA repairs. Patient also has a pacemaker placed. He endorses lower left back pain which he states is just over the hip joint. is at bedside states pain is often in the Botox. Endorses pain over 2 days. states he has been lifting heavy potted plants and began to have pain immediately following. Pain worsened throughout the day today upon awakening. He states he took [place] 5/325 without relief. He states usually this medication will help with his symptoms. He usually does not take this medication unless his pain is severe yet sometimes he is unable to get on top of the pain per . He has not tried muscle relaxers or heat. He denies any tenderness directly over the spine. Denies any bladder or bowel dysfunction. Denies any numbness or tingling in the bilateral lower extremities, but endorses weakness, however this is at baseline. Denies any color or temperature changes to the bilateral legs. Denies any chest pain or shortness of breath on this date. He has been taking all of his medications. Vital signs are stable on arrival. He states the pain was 10/10 earlier this afternoon and the pain had made him nauseous. Denies any nausea at this time. - History of Current Complaint Chief Complaint: EDBackInjuryPain Stated Complaint: LT SIDE BACK PAIN Time Seen by Provider: 11/28/17 13:39 Hx Obtained From: Patient, Family/Roll Tender Onset/Duration: Sudden Onset Onset/Duration: Started Days Ago Timing: Intermittent Back Pain Location: Is Discrete @ - L lower back pain over the SI joint Pain Intensity: 4 Pain Scale Used: 0-10 Numeric Character: Sharp Aggravating Symptom(s): Movement, Lifting, Bending Alleviating Symptom(s): Rest Associated Signs And Symptoms: Positive: Pain with Weight Bearing. Negative: Swelling, Redness, Bruising, Weakness, Numbness, Bladder Incontinence, Bowel Incontinence - Risk Factors AAA Risk Factors: Negative TAD Risk Factors: Negative Cauda Equina Risk Factors: Negative Epidural Abscess Risk Factors: Negative - Allergies/Home Medications Allergies/Adverse Reactions: Allergies Allergy/AdvReac Type Severity Reaction Status Date / Time amoxicillin [From Augmentin] Allergy Nausea And Verified 11/28/17 13:42 Vomiting cefadroxil [From Duricef] Allergy GI Upset Verified 11/28/17 13:42 cephalexin Allergy Nausea And Verified 11/28/17 13:42 Vomiting clavulanic acid Allergy Nausea And Verified 11/28/17 13:42 [From Augmentin] Vomiting hydroxyzine [From Atarax] Allergy GI Upset Verified 11/28/17 13:42 metolazone Allergy See Comment Verified 11/28/17 13:42 Home Medications: Home Medications Aspirin EC TAB* [Ecotrin EC Low Dose 81 MG*] 81 mg PO DAILY 11/28/17 [History Confirmed 11/28/17] Bifidobacterium Infantis [Align] 4 mg PO DAILY 11/28/17 [History Confirmed 11/28] Bupropion XL* [Wellbutrin XL *] 150 mg PO DAILY 11/28/17 [History Confirmed ] Enalapril TAB* [Vasotec TAB*] 5 mg PO QPM 11/28/17 [History Confirmed 11/28/17] HYDROcodone/ACETAMIN 5-325 MG* [[place] 5-325 TAB*] 1 tab PO Q6H PRN 11/28/17 [ History Confirmed 11/28/17] Levothyroxine TAB* [Synthroid TAB*] 150 mcg PO DAILY 11/28/17 [History Confirmed 11/28/17] Metoprolol Succinate XL TAB* [Toprol XL TAB*] 25 mg PO BID 11/28/17 [History Confirmed 11/28/17] Omeprazole CAP* [Prilosec CAP* 20 MG] 40 mg PO BID 11/28/17 [History Confirmed 11/28/17] Torsemide TAB* [Demadex*] 10 mg PO DAILY 11/28/17 [History Confirmed 11/28/17] PMH/Surg Hx/FS Hx/Imm Hx Previously Healthy: No - see below Endocrine/Hematology History: Reports: Hx Anticoagulant Therapy - Xarelto, Hx Thyroid Disease - hypothyroid, Hx Anemia Denies: Hx Diabetes Cardiovascular History: Reports: Hx Aneurysm - multiple including AAA, Hx Congestive Heart Failure, Hx Coronary Artery Disease, Hx Hypertension, Hx Pacemaker/ICD - 9/9/15, Hx Peripheral Vascular Disease, Other Cardiovascular Problems/Disorders - right groin aneurysm Respiratory History: Reports: Hx Sleep Apnea - CPAP 8cm Denies: Hx Asthma, Hx Chronic Obstructive Pulmonary Disease (COPD) GI History: Reports: Hx Hiatal Hernia - bulge but no pain or other symptoms Denies: Hx Ulcer Comment Only: Hx Gastrointestinal Bleed - this admission History: Denies: Hx Renal Disease Musculoskeletal History: Reports: Hx Back Problems Denies: Hx Arthritis, Hx Rheumatoid Arthritis, Hx Osteoporosis Sensory History: Reports: Hx Contacts or Glasses - reading glasses, Hx Macular Degeneration - R eye Opthamlomology History: Reports: Hx Contacts or Glasses - reading glasses, Hx Macular Degeneration - R eye Neurological History: Reports: Hx Migraine Denies: Hx Dementia, Hx Headaches, Hx Seizures, Hx Transient Ischemic Attacks (TIA) Psychiatric History: Denies: Hx Substance Abuse - Surgical History Surgery Procedure, Year, and Place: Abdominal aortic aneurysm repairs x4, [facility]. R aneurysm inguinal, [place]. [place], 06[place]2007, [facility] [place] replaced 03/14/15. Right shoulder surgery. Gallbladder removed. Spinal fusion x 2013, [facility]. Choleycystectomy, 11/2012, [facility] [place]. Right rotator cuff surgery, 09/2012, [facility] Hx Anesthesia Reactions: No - Immunization History Hx Pertussis Vaccination: No Immunizations Up to Date: No Infectious Disease History: No Infectious Disease History: Denies: Hx Clostridium Difficile, Hx Hepatitis, Hx Human Immunodeficiency Virus (HIV), Hx of Known/Suspected MRSA, Hx Shingles, Hx Tuberculosis, Hx Known/ Suspected VRE, Hx Known/Suspected VRSA, History Other Infectious Disease, Traveled Outside the [place] in Last 30 Days - Family History Known Family History: Positive: None, Cardiac Disease Family History: No FHx anesthesia reaction - Social History Occupation: Unemployed, Retired Lives: With Family Alcohol Use: None Hx Substance Use: No Substance Use Type: Reports: None Hx Tobacco Use: Yes Smoking Status (MU): Former Smoker Review of Systems Constitutional: Negative Negative: Fever, Chills, Fatigue Negative: Palpitations, Chest Pain Negative: Shortness Of Breath, Cough Positive: Nausea. Negative: Abdominal Pain, Vomiting, Diarrhea Genitourinary: Negative Positive: no symptoms reported, see HPI Positive: Arthralgia Negative: Rash, Bruising Positive: Weakness - at baseline. Negative: Paresthesia, Numbness Psychological: Normal All Other Systems Reviewed And Are Negative: Yes Physical Exam Triage Information Reviewed: Yes Vital Signs On Initial Exam: Initial Vitals Temp Pulse Resp BP Pulse Ox 98 F 61 20 171/93 95 11/28/17 13:42 11/28/17 13:42 11/28/17 13:42 11/28/17 13:42 11/28/17 13:42 Vital Signs Reviewed: Yes Appearance: Positive: Well-Appearing, Well-Nourished Skin: Positive: Warm, Skin Color Reflects Adequate Perfusion - Was Head/Face: Positive: Normal Head/Face Inspection Eyes: Positive: EOMI, RADHA Neck: Positive: Supple, Nontender, No Lymphadenopathy Respiratory/Lung Sounds: Positive: Clear to Auscultation, Breath Sounds Present Cardiovascular: Positive: Normal - Ventricular paced complexes Musculoskeletal: Positive: Pain @ - L lower back pain over the SI joint Neurological: Positive: Sensory/Motor Intact, Alert, Oriented to Person Place, Time, Speech Normal Psychiatric: Positive: Affect/Mood Appropriate AVPU Assessment: Alert Diagnostics - Vital Signs Vital Signs Temp Pulse Resp BP Pulse Ox 11/28/17 15:02 97.7 F 65 18 133/79 95 11/28/17 14:57 63 133/79 93 11/28/17 14:46 66 95 11/28/17 14:45 65 151/98 95 11/28/17 13:42 98 F 61 20 171/93 95 - Laboratory Lab Statement: Any lab studies that have been ordered have been reviewed, and results considered in the medical decision making process. Back Pain Course/Dx - Course Course Of Treatment: During the course of treatment, the patient is evaluated for left lower back pain. No pain on palpation to the spine. No CVA tenderness bilaterally. No weakness, limitations of range of motion, numbness or tingling noted to the bilateral lower extremities across from baseline. There is pain to deep palpation directly inferior to the iliac crest over the sacroiliac joint. Compressing on the sciatic nerve incites pain to the area. Denies any radiation of this pain however. I discussed obtaining a CT scan, however this will likely not change our course of treatment. Encouraged Flexeril, moist heat to the area, low back exercises and I am willing to give [place] for pain control as this has improved his symptoms in the past. He is okay with this plan at this time to approach conservative measures and will return to the ED for any worsening or changing symptoms. I have discussed at length what these symptoms will be and he voices understanding. Patient is observed ambulating well. - Diagnoses Differential Diagnosis/HQI/PQRI: Positive: Strain, Sprain Provider Diagnoses: Sciatica Discharge - Sign-Out/Discharge Documenting (check all that apply): Discharge/Admit/Transfer - Discharge Plan Condition: Stable Disposition: HOME Prescriptions: Cyclobenzaprine TAB* [Flexeril TAB*] 10 mg PO BID PRN #14 tab PRN Reason: Spasms HYDROcodone/ACETAMIN 5-325 MG* [[place] 5-325 TAB*] 1 tab PO Q4H PRN #18 tab MDD 6 PRN Reason: Pain Ondansetron ODT TAB* [Zofran 4 MG Odt TAB*] 4 mg PO Q6H PRN #12 tab.odt MDD 4 PRN Reason: Nausea Patient Education Materials: Sciatica (ED), Lumbar Radiculopathy (ED), Lower Back Exercises (ED) Referrals: Do Oquendo MD [Primary Care Provider] - Additional Instructions: Please take zofran prior to NORCO to prevent nausea blood loss labs Flexeril up to twice daily for muscle spasms Hydrocodone may be taken up to every 4 hours as needed for pain Do not take Flexeril and hydrocodone simultaneously as this may cause respiratory depression Moist heat to the area as much as possible I have given you low back exercises Again, as discussed, return to the ED for any worsening or changing symptoms, specifically bladder or bowel function, spine pain, or pain not well controlled with medications given to - Billing Disposition and Condition Condition: STABLE Disposition: HOME
== END 2017-11-28 15:02 | disposition home or self-care (01) ==
LOC: ED 13:20
DX: M54.30 Sciatica, unspecified side (principal); Z95.0 Presence of cardiac pacemaker; Z87.891 Personal history of nicotine dependence; Z79.899 Other long term (current) drug therapy; Z88.3 Allergy status to other anti-infective agents; Z88.8 Allergy status to other drugs, medicaments and biological substances
CPT/HCPCS: 93005; 99282

== ENCOUNTER 2018-06-16 11:03 | Emergency (ER) | payer MEDICARE, BC ==
--- OUTSIDE RECORDS SUMMARY | 2018-06-16 12:38 | XMS REPORT | Continuity of Care Document ---
:1935 External Reference #:[id number] Author Name Ana Otero M.D. Address [address] [place] [address] Care Team Providers Name Role Phone Do Oquendo M.D. Primary Care Physician Unavailable Payers Type Date Identification Numbers Payment Provider Subscriber Effective: Policy Number: [id number] Medicare-National Sameer Kendall 2000 [employer] PayID: [id number] [address] [place] [address] Effective: 2017 Policy Number: [facility] Sameer Kendall [id number] Group Number: [id number] [address] PayID: [id number] [place] [address] Advance Directives Description No Information Available Problems Date Description Provider Status Onset: 06/09/2018 Allergic rhinitis Ana Otero M.D. Active Onset: 06/09/2018 Angioedema Ana Otero M.D. Active Onset: 06/09/2018 Pruritus of skin Ana Otero M.D. 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 Home Environment Has central air Home Environment Uses forced air heating Home Environment Stairs are present Home Environment Finished Basement Home Environment The basement is damp Home Environment Cotton Comforter Home Environment Pillows are polyester Home Environment There are draperies in the home Home Environment The home is luly Home Environment The floors are wood Home Environment The floors are carpeted Home Environment The floors are tile Home Environment [place] Home Environment Water Source: [facility] Smoke-Free Home is smoke-free Pets None 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 ETOH Use Denies alcohol use Tobacco Use Start: Unknown Patient is a former End: Unknown smoker Recreational Drug Use Never Used Drugs Allergies, Adverse Reactions, Alerts Date Description Reaction Status Severity Comments 06/09/2018 Keflex Diarrhea, Nausea Active Severe 06/09/2018 Propoxyphene hallucinations Active Severe 06/09/2018 Clindamycin Diarrhea, Nausea Active Severe Medications Medication Date Status Form Strength Qnty SIG Indications Ordering Provider Levocetirizine 06/09 Active Tablets 5mg 30tab 1/2 to L29.9 Ana Dihydrochloride s tab 1 by McVonniertayla, mouth M.DLilly every day Celecoxib Active Capsules 200mg twice Unknown daily Alprazolam Active Tablets 0.5mg half tab Crepet, daily Palomo [place]i Hydroxyzine HCL Active Tablets 25mg as needed Unknown Metoprolol Succinate Active Tablets 25mg twice Crepet, ER ER 24HR daily Palomo Lei Torsemide Active Tablets 20mg 1/2 tab Unknown daily Omeprazole Active Capsules 40mg once Unknown DR daily Levothyroxine Sodium Active Tablets 150mcg once Unknown daily Enalapril Maleate Active Tablets 5mg take 1 Unknown tablet by mouth every morning Triamcinolone Active Cream 0.5% Crepet, Acetonide Pal[place]i Hydrocodone-Acetamin Active Tablets 5-325mg take 1 Unknown ophen tablet by mouth every 6 hours if needed for pain Methylprednisolone Active TBPK 4mg Unknown Bupropion HCL ER Active Tablets 150mg one tab Unknown (XL) /0000 ER 24HR daily Mometasone Furoate Active Solution 0.1% Mix 50:50 Unknown / With [place] Oil And place 5 drops into affected ear twice a day if needed for itching Cyclobenzaprine HCL Active Tablets 10mg take 1 Unknown / tablet by mouth twice a day if needed Ondansetron Active Tablets 4mg dissolve Dispers 1 tablet On Tongue every 6 hours if needed Prednisone Active TBPK 5mg (21) as needed / Preservision Areds 2 Active Capsules Areds 2 Unknown + Multi Vitamin / Enalapril Maleate Active Tablets 10mg one tab / at bedtime Motrin Active Tablets once Unknown / daily Duexis Active Tablets 800-26.6m prn /0000 g Qvar Active Aerosol 80mcg/Act 2 puff / twice a day Aspirin 81 Low Dose Active Chewtabs 81mg 1 per day Citrucel Active Powder daily Unknown / Colace Active Capsules 100mg Unknown / Compazine Active Tab prn Unknown /0000 Immunizations CPT Code Status Date Vaccine Lot # [id number] Given Unknown Influenza Vaccine Vital Signs Date Vital Result Comment 06/09/2018 2:14pm Height 69 inches 5'9" Weight 226.00 lb Weight 102.514 kg Respiratory Rate 20 /min Heart Rate 80 /min O2 % BldC Oximetry 96 % BP Systolic 152 mmHg BP Diastolic 91 mmHg BMI (Body Mass Index) 33.4 kg/m2 Results Description No Information Available Procedures Description No Information Available Encounters Type Date Location Provider Dx Diagnosis Office Visit 06/09/2018 Enrique Otero M.D. L29.9 Pruritus, unspecified 2:00p T78.3xxA Angioneurotic edema, initial encounter J30.89 Other allergic rhinitis Office Visit 11/06/2008 3:45p Enrique Arenas MD 477.8 Rhinitis Allergic Due To Other Allergen Office Visit 05/26/2007 10:00a Enrique Bautista 477.8 Rhinitis Allergic Due M.D. To Other Allergen Office Visit 04/14/2007 10:15a Enrique Cunhainstein, 477.8 Rhinitis Allergic Due M.D. To Other Allergen Plan of Treatment Future Appointment(s):07/14/2018 11:40 am - Ana Otero M.D. at [id number] - Ana Otero M.D.L29.9 Pruritus, upnviolwxmqA07.3xxA Angioneurotic edema, initial oliqplfbjW74.89 Other allergic rhinitisNew Medication: Levocetirizine Dihydrochloride 5 mgFollow up:Jul 2018 CHECK-UP/FOLLOW UP VISIT: Continued management of patient's medical care.Recommendations:Refrain from wearing perfumes/scented colognes while visiting our office. release of records : All blood tests 6 months Trial of Xyzal/levocetirizine 5mg tabs start with 1/ 2 tab daily at dinner/ night If symptoms are better but still need more improvement, OK to go to 1 full tab Watch out of sedation/other side effects ( we can consider adding Singulair next visit if needed) we could also consider Scabies treatment but I do not think this is scabies throw out all time used to scrub the back Use soap on the back only about one weekly unless your are dirty Continue to apply moisturizers to the backliberally Consider a trial of Gold's toothpaste instead of Colgate if the tongue Continues to cause symptoms
--- OUTSIDE RECORDS SUMMARY | 2018-06-16 12:38 | XMS REPORT | Continuity of Care Document ---
:1935 External Reference #:[id number] Author Name Maryjane Tariq Care Team Providers Name Role Phone Other Care Team Information Olive Picker Unavailable Marquise Salter M.D. Primary Care Physician Unavailable Payers Type Date Identification Numbers Payment Provider Subscriber Effective: Policy Number: [id number] Medicare-National Sameer Kendall [address] [facility] PayID: [id number] [address] [place] [address] Policy Number: [id number] [facility] Sameer Kendall PayID: [id number] [address] [place] [address] Policy Number: [id number] Medicare-National [employer] Sameer Kendall PayID: [id number] [address] [place] [address] Policy Number: [id number] [facility] Sameer Kendall PayID: [id number] [address] [place] [address] Advance Directives Description No Information Available Problems Description No Information Family History Description No Information Available Social History Type Date Description Comments Sex Unknown Allergies, Adverse Reactions, Alerts Description No Known Drug Allergies Medications Description No Information Immunizations Description No Information Available Vital Signs Description No Information Available Results Description No Information Available Procedures Description No Information Available Encounters Type Date Location Provider Dx Diagnosis Office Visit 11/06/2008 Enrique Arenas MD 477.8 Rhinitis Allergic Due 3:45p To Other Allergen Office Visit 05/26/2007 Lisa Eduardo.Alan Rhinitis Allergic Due 10:00a M.D. To Other Allergen Office Visit 04/14/2007 Enrique Bautista [id number] Rhinitis Allergic Due 10:15a M.D. To Other Allergen Plan of Treatment Future Appointment(s):06/09/2018 2:00 pm - Ana Otero M.D. at [facility]
[2018-06-16 13:45] VITALS: BP 140/70
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
== END 2018-06-16 14:58 | disposition home or self-care (01) ==
LOC: UCEAST 11:03
DX: S80.01XA Contusion of right knee, initial encounter (principal); W19.XXXA Unspecified fall, initial encounter; Y93.89 Activity, other specified; Y92.481 Parking lot as the place of occurrence of the external cause; Z79.82 Long term (current) use of aspirin; Z88.0 Allergy status to penicillin; Z88.8 Allergy status to other drugs, medicaments and biological substances; Z88.1 Allergy status to other antibiotic agents; Z79.01 Long term (current) use of anticoagulants; Z87.891 Personal history of nicotine dependence
CPT/HCPCS: 99211; G0463

== ENCOUNTER 2018-06-18 16:53 | Emergency (ER) | payer MEDICARE, BC ==
--- NOTE | 2018-06-18 17:34 | ED ---
Lower Extremity - HPI Summary HPI Summary: Patient is a 82 y/o M presenting to ED with complaints of numbness extending from below right knee down to bottom of the foot. Patient's notes the appearance of a hematoma at this knee alongside an exacerbation of pain yesterday as well. Patient also reports motor weakness at this leg. Patient's knee was wrapped in bandages as he had a fall + lacerations at right knee about a week ago. He was evaluated by provider, who recommended that patient come to ED for further workup. On triage, pain is rated 5/10, position is noted to aggravate Sx, nothing is noted to alleviate. Home medications and allergies are reviewed. - History of Current Complaint Stated Complaint: RT KNEE ISSUE/INJURY Time Seen by Provider: 06/18/18 17:16 Hx Obtained From: Patient Mechanism Of Injury: Fall From A Standing Position Onset of Pain: Days - 7 days ago, Prior to Arrival Onset/Duration: Days - fall occurred seven days ago, Sx onset yesterday Severity Initially: Mild Severity Currently: Moderate Pain Intensity: 5 Pain Scale Used: 0-10 Numeric - 5/10 Timing: Constant, Lasting Days Location: Is Discrete @ - RLE Associated Signs And Symptoms: Positive: Weakness - RLE, Other - numbness from below right knee extending all the way down, right knee pain, lacerations at right knee Aggravating Factor(s): Other - position Alleviating Factor(s): Nothing - Allergies/Home Medications Allergies/Adverse Reactions: Allergies Allergy/AdvReac Type Severity Reaction Status Date / Time amoxicillin [From Augmentin] Allergy Nausea And Verified 06/18/18 17:42 Vomiting cefadroxil [From Duricef] Allergy GI Upset Verified 06/18/18 17:42 cephalexin Allergy Nausea And Verified 06/18/18 17:42 Vomiting clavulanic acid Allergy Nausea And Verified 06/18/18 17:42 [From Augmentin] Vomiting metolazone Allergy See Comment Verified 06/18/18 17:42 PMH/Surg Hx/FS Hx/Imm Hx Endocrine/Hematology History: Reports: Hx Anticoagulant Therapy - Xarelto, Hx Thyroid Disease - hypothyroid, Hx Anemia Denies: Hx Diabetes Cardiovascular History: Reports: Hx Aneurysm - multiple including AAA, Hx Congestive Heart Failure, Hx Coronary Artery Disease, Hx Hypertension, Hx Pacemaker/ICD - 9/9/15, Hx Peripheral Vascular Disease, Other Cardiovascular Problems/Disorders - right groin aneurysm Respiratory History: Reports: Hx Sleep Apnea - CPAP 8cm Denies: Hx Asthma, Hx Chronic Obstructive Pulmonary Disease (COPD) GI History: Reports: Hx Hiatal Hernia - bulge but no pain or other symptoms Denies: Hx Ulcer Comment Only: Hx Gastrointestinal Bleed - this admission History: Denies: Hx Renal Disease Musculoskeletal History: Reports: Hx Back Problems Denies: Hx Arthritis, Hx Rheumatoid Arthritis, Hx Osteoporosis Sensory History: Reports: Hx Contacts or Glasses - reading glasses, Hx Macular Degeneration - R eye Opthamlomology History: Reports: Hx Contacts or Glasses - reading glasses, Hx Macular Degeneration - R eye Neurological History: Reports: Hx Migraine Denies: Hx Dementia, Hx Headaches, Hx Seizures, Hx Transient Ischemic Attacks (TIA) Psychiatric History: Denies: Hx Substance Abuse - Surgical History Surgery Procedure, Year, and Place: Abdominal aortic aneurysm repairs x4, [facility]. R aneurysm inguinal, [place]. [place] [facility] [place]. Right shoulder surgery. Gallbladder removed. Spinal fusion x , 2013, [facility]. [place] [facility] [place] rotator cuff surgery, 09/2012, [facility] Hx Anesthesia Reactions: No Infectious Disease History: Denies: Hx Clostridium Difficile, Hx Hepatitis, Hx Human Immunodeficiency Virus (HIV), Hx of Known/Suspected MRSA, Hx Shingles, Hx Tuberculosis, Hx Known/ Suspected VRE, Hx Known/Suspected VRSA, History Other Infectious Disease, Traveled Outside the [place] in Last 30 Days - Family History Known Family History: Positive: Cardiac Disease Family History: No FHx anesthesia reaction - Social History Alcohol Use: None Hx Substance Use: No Substance Use Type: Reports: None Hx Tobacco Use: Yes Smoking Status (MU): Former Smoker Review of Systems Positive: Other - lacerations at right knee from fall seven days ago, right knee pain Positive: Weakness - RLE, Numbness - below right knee extending to bottom of foot All Other Systems Reviewed And Are Negative: Yes Physical Exam - Summary Physical Exam Summary: Appearance: The patient is well-nourished in no acute distress and in no acute pain. Skin: The skin is warm and dry and skin color reflects adequate perfusion. HEENT: The head is normocephalic and atraumatic. The pupils are equal and reactive. The conjunctivae are clear and without drainage. Nares are patent and without drainage. Mouth reveals moist mucous membranes and the throat is without erythema and exudate. The external ears are intact. The ear canals are patent and without drainage. The tympanic membranes are intact. Neck: The neck is supple with full range of motion and non-tender. There are no carotid bruits. There is no neck vein distension. Respiratory: Chest is non-tender. Lungs are clear to auscultation and breath sounds are symmetrical and equal. and Cardiovascular: Heart is regular rate and rhythm. There is no murmur or rub auscultated. There is no peripheral edema and pulses are symmetrical and equal. Abdomen: The abdomen is soft and non-tender. There are normal bowel sounds heard in all four quadrants and there is no organomegaly palpated. Musculoskeletal: There is no back tenderness noted. Right distal foot is cool to touch, there is delayed cap refill in toes, proprioception is not intact. Peripheral edema is also noted, cannot palpate pulse. Right knee ecchymosis with abrasions. Neurological: Patient is alert and oriented to person, place and time. The patient has symmetrical motor strength in all four extremities. Cranial nerves are grossly intact. Deep tendon reflexes are symmetrical and equal in all four extremities. Psychiatric: The patient has an appropriate affect and does not exhibit any anxiety or depression. Triage Information Reviewed: Yes Vital Signs On Initial Exam: Initial Vitals Temp Pulse Resp BP Pulse Ox 97.3 F 72 16 146/91 97 06/18/18 17:29 06/18/18 17:29 06/18/18 17:29 06/18/18 17:29 06/18/18 17:29 Vital Signs Reviewed: Yes Diagnostics - Laboratory Result Diagrams: 06/18/18 17:57 06/18/18 17:57 Lab Statement: Any lab studies that have been ordered have been reviewed, and results considered in the medical decision making process. - CT LUMBAR SPINE CT CT Interpretation Completed By: Radiologist Summary of CT Findings: IMPRESSION: 1. Moderate multilevel lumbar spondylopathy post L2-L3 through L4-L5 posterior. fusion. 2. Infrarenal aortic aneurysm. No rupture. THIS REPORT WAS REVIEWED BY ED PHYSICIAN. - Ultrasound No standard instances Ultrasound Interpretation Completed By: Radiologist Summary of Ultrasound Findings: EXTREMITY ARTERIAL STUDY IMPRESSION: 1. No distal right lower extremity flow. 2. Markedly high-pressure left lower extremity with OPAL out of range. THIS REPORT WAS REVIWED BY ED PHYSICIAN. Re-Evaluation - Re-Evaluation First Eval Re-Evaluation Time: 20:50 Comment: Need for transfer was discussed with patient, he is agreeable with transfer. Lower Extremity Course/Dx - Course Course Of Treatment: Mr. Kendall presented complaining of numbness and some weakness of his right foot. He fell onto his right knee 3 days ago and has had ecchymosis and swelling to the right knee since. Today he developed the numbness and weakness. He has known peripheral vascular disease and seasonal asked her surgeon in [place]. 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 He denies any pain. He also has some spondylolisthesis in his back. He was nontoxic in appearance and his vitals were stable on arrival in the emergency department. He was week to dorsiflexion of the toes of his right foot and filled light touch first pinprick and proprioception in the toes. The distal foot was cold to the touch and his capillary refill was 5 or 6 seconds. He had quite a bit of edema and I could not appreciate a pulse. His left foot was also edematous. Arterial ultrasound was obtained and showed no flow in his right foot and poor flow in the left. He has been on 02 in the past until 2 years ago when he had a GI bleed and has been on a baby aspirin since. I spoke with Dr. Pena at [facility] who recommended a heparin bolus and air transfer. Dr. Goldberg also accepted transfer for the emergency department. - Diagnoses Provider Diagnoses: Arterial insufficiency of lower extremity - Physician Notifications Discussed Care Of Patient With: Geo Berkowitz MD Time Discussed With Above Provider: 21:13 Instructed by Provider To: Other - 2112 - transfer process had been initiated, patient's case was discussed with Dr. Berkowitz from [facility] at this time. Patient recommends that patient be transferred. Patient's case was also discussed with Dr. Goldberg. He accepts patient for ED to ED transfer. - Critical Care Time Critical Care Time: 30-74 min Discharge - Sign-Out/Discharge Documenting (check all that apply): Patient Departure - transfer - Discharge Plan Condition: Good Disposition: TRANS HIGHER LVL OF CARE FAC Referrals: Do Oquendo MD [Primary Care Provider] - - Billing Disposition and Condition Condition: GOOD Disposition: Trans Higher Lvl of Care Fac - Attestation Statements Document Initiated by Conner: Yes Documenting Scribe: ADA WILLSON Provider For Whom Conner is Documenting (Include Credential): NADINE LINDSAY MD Scribe Attestation: IAAD , scribed for NADINE LINDSAY MD on 06/18/18 at 2138. Scribe Documentation Reviewed: Yes Provider Attestation: The documentation as recorded by the ADA clark accurately reflects the service I personally performed and the decisions made by me, NADINE LINDSAY MD Status of Scribe Document: Viewed
[2018-06-18 18:19] LABS: ABS Basophils 0.1 10^3/ul (0-0.2); ABS Eosinophils 0.5 10^3/ul (0-0.6); ABS Lymphocytes 0.7 10^3/ul (1.0-4.8); ABS Monocytes 0.7 10^3/ul (0-0.8); ABS Neutrophils 6.2 10^3/ul (1.5-7.7); ABS Nucleated RBC 0 10^3/ul; Eosinophil % 6.5 %; Hematocrit 33 % (42-52); Hemoglobin 11.3 g/dl (14.0-18.0); Lymphocyte % 8.4 %; Mean Corpuscular HGB Conc 34 g/dl (31-36); Mean Corpuscular Hemoglobin 33 pg (27-31); Mean Corpuscular Volume 99 fL (80-94); Nucleated Red Blood Cells % 0; Platelet Count 142 10^3/ul (150-450); Red Blood Count 3.37 10^6/ul (4.00-5.40); Red Cell Distribution Width 15 % (10.5-15); White Blood Count 8.2 10^3/ul (3.5-10.8)
[2018-06-18 18:35] LABS: INR 1.14 (0.77-1.02)
[2018-06-18] MEDS ORDERED: Heparin VIAL(*) 5000 UNITS/ML VIAL (FIVE THOUSAND) IV SCH (22:00)
[2018-06-18 22:39] VITALS: BP 153/103
== END 2018-06-18 22:38 | disposition short-term general hospital (02) ==
LOC: ED 16:53
DX: I73.9 Peripheral vascular disease, unspecified (principal); I71.4 Abdominal aortic aneurysm, without rupture; M46.96 Unspecified inflammatory spondylopathy, lumbar region; Z79.01 Long term (current) use of anticoagulants; Z95.810 Presence of automatic (implantable) cardiac defibrillator; Z88.1 Allergy status to other antibiotic agents; Z88.0 Allergy status to penicillin; Z88.8 Allergy status to other drugs, medicaments and biological substances; Z87.891 Personal history of nicotine dependence
CPT/HCPCS: 36415; 72131; 80053; 83605; 85025; 85610; 93922; 99283; J1644

== ENCOUNTER 2018-06-25 14:56 | Inpatient (IN) | payer MEDICARE, BC ==
[2018-06-27] MEDS ORDERED: Albuterol HFA INHALER* 8 gm MDI INH PRN (15:23)
[2018-06-27] MEDS ORDERED: oxyCODONE TAB* 5 MG TAB PO PRN (15:25)
[2018-06-27] MEDS: Enalapril TAB* 5 MG PO SCH (17:39)
[2018-06-27] MEDS: Mometasone 220 MCG MDI INH SCH (17:41)
--- NOTE | 2018-06-27 19:14 | HP ---
ADMISSION HISTORY AND PHYSICAL: DATE OF ADMISSION: 06/27/18. REASON FOR ADMISSION: Critical limb ischemia, right leg. HISTORY OF PRESENT ILLNESS: Sameer Kendall is an 82-year-old male. He has a medical history significant for atrial fibrillation. He had a GI bleed on XARELTO and no longer takes anticoagulation. He usually is on a baby aspirin every day. He also has a pacemaker placed. He has had a AAA status post repair and a right femoral aneurysm status post repair as well. Somewhere around 06/09 or 06/10/18, the patient fell and developed a laceration at the right knee. He had a large hematoma of the right knee. His daughter who is an orthopedic surgeon ordered an x-ray but the x-ray did not show any fracture. About a week later, the patient developed a large hematoma over his patella and went to see his primary care doctor. The primary care doctor, Dr. Oquendo looked at his right leg and recommended that he go to the emergency department. The patient came to the emergency room on 06/18/18 at [facility]. The patient's right leg was noted to be edematous and weak and his foot was cold. Pulses were difficult to palpate. The patient had a CAT scan of his back ordered, which showed a previous fusion. He also has an aortic aneurysm. He also had an ultrasound of his right leg, which showed no distal right lower extremity flow and a markedly high pressure left lower extremity with OPAL out of range. It was decided to transfer the patient to [facility] on a heparin drip via helicopter. Upon arrival at [facility], the patient underwent a right SFA to peroneal artery bypass with an in situ greater saphenous vein. He also underwent a posterior tibial artery exploration and a complete angiogram on 06/20/18. He transferred to the ICU postoperatively for close observation. He remained intubated. He had a wound VAC in place to the right lower extremity. On postop day 1, he was extubated and started on Plavix. On postop day 2, the wound VAC was changed without issue. Physical Therapy and Occupational Therapy evaluated him and recommended short-term rehab. The patient is now being transferred for inpatient rehab, so that he might return to independent living. PAST MEDICAL HISTORY: Significant for the aforementioned: 1. Atrial fibrillation. 2. Pacemaker placement. 3. Sleep apnea, on CPAP. 4. He has had a history of AAA. 5. Gastroesophageal reflux disease. 6. He had spinal stenosis with neurogenic claudication. 7. GI bleed secondary to anticoagulation. CURRENT MEDICATIONS: Include: 1. Plavix. 2. Aspirin. 3. He is on oxycodone. 4. Omeprazole. 5. Synthroid. 6. Hydroxyzine. 7. ProAir. 8. QVAR. 9. He also takes Sinemet for restless legs syndrome. 10. Wellbutrin. 11. Xanax. ALLERGIES: The patient has allergies listed to XARELTO as well as AVELOX, CLINDAMYCIN, DURICEF, and KEFLEX. SOCIAL HISTORY: He is a nonsmoker, nondrinker. He lives with his in a one -kenji house. He has a daughter who is an orthopedic surgeon, who lives in [place], [place]. He has one son living locally and a third child. REVIEW OF SYSTEMS: The patient reports no current shortness of breath or chest pain. PHYSICAL EXAMINATION VITAL SIGNS: The patient's temperature is 98.0, blood pressure is 140/80, pulse is 63, respirations 18. HEENT: His extraocular movements were intact. Tongue is midline. NECK: Supple. LUNGS: Sound clear to auscultation bilaterally. HEART: Sounds are regular. S1 and S2 are audible. ABDOMEN: Soft and nontender. EXTREMITIES: His right leg had a large wound over his right medial calf. At the distal end the wound VAC was placed over that. He also had a shorter wound with melody over his medial thigh and a wound in his groin that was glued. Ecchymoses were notable over the knee, both over the patella and the lateral and medial surfaces. Peripheral pulses were present on both sides. There was 1 to 2+ edema in both feet. NEUROLOGIC: He was awake, alert, oriented. Muscle strength was about 3+ to 4/ 5 in the right leg and 4+/5 in the left leg, 5/5 in the arms. FUNCTIONAL EXAM: He transfers with mod assist. ASSESSMENT: Critical limb ischemia of the right lower extremity status post superficial femoral artery to peroneal bypass. PLAN: We are going to integrate him into a comprehensive and therapeutic rehab program on the following goals: 1. Physical Therapy will work with the patient. They are going to work on functional transfer training and ambulation training with a walker. 2. Occupational Therapy will see the patient. They are going to work on activities of daily living including toileting and toilet transfers. 3. Heparin for DVT prophylaxis. 4. Continue aspirin and Plavix. 5. Continue Synthroid for hypothyroidism. 6. Adequate analgesia. 7. His bowels will be regulated. 8. Wellbutrin and Xanax for anxiety. 9. Sinemet for restless legs. 10. executive services administrator will be closely involved to make sure that any services and equipment that the patient requires are in place prior to discharge. 11. Continue Toprol-XL for his atrial fibrillation. 12. Family training as appropriate. 13. Home with appropriate services. ESTIMATED LENGTH OF STAY: 10 to 14 days. [id number] #: [id number] CONNIE
[2018-06-27] MEDS ORDERED: Beclomethasone 80 MCG MDI(NF) 80 MCG/PUFF MDI INH SCH (21:00)
[2018-06-27] MEDS ORDERED: HYDROcodone/ACETAMIN 5-325 MG* 1 TAB PO PRN (21:09)
[2018-06-27] MEDS: ALPRAZolam TAB* 0.5 MG PO PRN (22:13)
[2018-06-27] MEDS: Heparin VIAL(*) 5000 UNITS/ML VIAL (FIVE THOUSAND) SUBCUT SCH (22:14)
[2018-06-27] MEDS: Aspirin EC TAB* 81 MG TAB.EC PO SCH (22:14)
[2018-06-27] MEDS: CMC:Pantoprazole TAB (NF) 40 MG TAB PO SCH (22:14)
[2018-06-27] MEDS: Docusate CAP* 100 MG PO SCH (22:14)
[2018-06-28] MEDS: Carbidopa/Levodop 25/100 MG TAB(*) PO PRN ×2 (00:56→19:24)
[2018-06-28 05:16] LABS: ABS Basophils 0.1 10^3/ul (0-0.2); ABS Eosinophils 0.6 10^3/ul (0-0.6); ABS Monocytes 0.6 10^3/ul (0-0.8); ABS Neutrophils 5.5 10^3/ul (1.5-7.7); ABS Nucleated RBC 0 10^3/ul; Eosinophil % 7.1 %; Hematocrit 28 % (42-52); Hemoglobin 9.1 g/dl (14.0-18.0); Mean Corpuscular HGB Conc 33 g/dl (31-36); Mean Corpuscular Hemoglobin 33 pg (27-31); Mean Corpuscular Volume 100 fL (80-94); Mean Platelet Volume 6.7 fL (7.4-10.4); Nucleated Red Blood Cells % 0.1; Platelet Count 185 10^3/ul (150-450); Red Blood Count 2.76 10^6/ul (4.00-5.40); Red Cell Distribution Width 17 % (10.5-15); White Blood Count 7.7 10^3/ul (3.5-10.8)
[2018-06-28] MEDS: Heparin VIAL(*) 5000 UNITS/ML VIAL (FIVE THOUSAND) SUBCUT SCH ×3 (05:16→21:25)
[2018-06-28] MEDS: Levothyroxine TAB* 150 MCG TAB PO SCH (05:16)
[2018-06-28 05:35] LABS: Albumin 2.9 g/dL (3.2-5.2); Albumin/Globulin Ratio 1.2 (1-3); BUN/Creatinine Ratio 22.8 (8-20); Calcium 8.5 mg/dL (8.6-10.3); EGFR Non-African American 70.5 (>60); Globulin 2.4 g/dL (2-4); Potassium 3.7 mmol/L (3.5-5.0); Total Bilirubin 0.9 mg/dL (0.2-1.0); Total Protein 5.3 g/dL (6.4-8.9)
[2018-06-28] MEDS: hydrOXYzine HCL TAB* 25 MG PO PRN ×2 (06:10→23:33)
[2018-06-28] MEDS: Docusate CAP* 100 MG PO SCH ×2 (09:27→21:25)
[2018-06-28] MEDS: Torsemide TAB* 20 MG PO SCH (09:28)
[2018-06-28] MEDS: Clopidogrel TAB* 75 MG PO SCH (09:28)
[2018-06-28] MEDS: Enalapril TAB* 5 MG PO SCH ×2 (09:28→19:25)
[2018-06-28] MEDS: BuPROPion XL* 150 MG TAB.XL PO SCH (09:28)
[2018-06-28] MEDS: Metoprolol Succinate XL TAB* 25 MG PO SCH (09:28)
--- NOTE | 2018-06-28 12:40 | PMRUTEAM ---
PMRU: Team Meeting Current Status: Nursing: Current Status Skin Deviations [Bilateral Bruise Flank] Skin Deviations [Coccyx] Other Skin Deviations [Bilateral Leg Bruise ] Skin Deviations [Right Groin] Incision Skin Deviations [Right Medial Incision Thigh] Skin Deviations [Right Knee] Abrasion Skin Deviations [Right Lower Incision Anterior Leg] Skin Deviation Description [ red, blanchable;scar tissue Coccyx] Skin Deviation Description [ well approximated w glue Right Groin] Skin Deviation Description [ melody intact Right Medial Thigh] Skin Deviation Description [ x2 Right Knee] Skin Deviation Description [ well approximated w sutures in place Right Lower Anterior Leg] Drain Type [Right Lower Wound Vac Anterior Leg] Physical Therapy: Current Status Bed Mobility Assistance Supervision Transfer Mobility Assistance Min Assist x 2 Ambulation Assistance Min Asssist x2 35 feet Occupational Therapy: Current Status Upper Body Dressing Supervision Lower Body Dressing Total Assist,2 Person Assist Bathing Mod Assist,2 Person Assist Toileting Max Asst,2 Person Assist Toilet Transfer Mod Assist,2 Person Assist Shower Transfer Mod Assist,2 Person Assist Eating Independent Care Plan: Care Plan Coping/Psych-Improve/Maintain Start: 06/27/18 16:55 Freq: QSHIFT Status: Active Target: Protocol: Activity Type Activity Date Activity User E-Sign Co-Sign Detail Recorded Client Recorded Date Recorded By Document 06/28/18 12:31 [id number] 06/28/18 12:32 [id number] 06/28/18 12:31 PMRU Outcome: Coping/Psychosocial Coping Outcome/Goals Verbalization of Acceptance of Rehab Admit Verbalization of Sense of Control Over Health Status Psychosocial Outcome/Goals Maintain/ Improve Emotional Health Cooperate/ Participate in Plan Progression Toward Outcome/Goals - Progressing Coping DVT Prophylaxis- Improve/Maintain Start: 06/27/18 16:55 Freq: QSHIFT Status: Active Target: Protocol: Activity Type Activity Date Activity User E-Sign Co-Sign Detail Recorded Client Recorded Date Recorded By Document 06/28/18 12:31 [id number] 06/28/18 12:32 [id number] 06/28/18 12:31 PMRU Outcome: DVT Prophylaxis Outcome/Goals Remains Free of DVT Progression Toward Outcome/Goals Progressing Discharge Planning - Improve/Maintain Start: 06/27/18 16:55 Freq: DAILY Status: Active Target: Protocol: Activity Type Activity Date Activity User E-Sign Co-Sign Detail Recorded Client Recorded Date Recorded By Document 06/28/18 03:45 [id number] 06/28/18 03:45 [id number] 06/28/18 03:45 PMRU Outcome: Discharge Planning Update Patient Family No Outcome/Goals Demonstrates Understanding of Discharge Plan Pain/Comfort- Improve/Maintain Start: 06/27/18 16:55 Freq: QSHIFT Status: Active Target: Protocol: Activity Type Activity Date Activity User E-Sign Co-Sign Detail Recorded Client Recorded Date Recorded By Document 06/28/18 12:31 [id number] 06/28/18 12:32 [id number] 06/28/18 12:31 PMRU Outcome: Pain/Comfort Outcome/Goals Demonstrates Knowledge and Use of Available Comfort Measures Achieves Acceptable Comfort/Pain Level as Determined by Patient/Condit Progression Toward Outcome/Goals Progressing Skin- Improve/Maintain Start: 06/27/18 16:55 Freq: QSHIFT Status: Active Target: Protocol: Activity Type Activity Date Activity User E-Sign Co-Sign Detail Recorded Client Recorded Date Recorded By Document 06/28/18 12:31 [id number] 06/28/18 12:32 [id number] 06/28/18 12:31 PMRU Outcome: Skin Skin Risk Level Medium Skin Orders Air Mattress Turn/Position q2hr While in Bed Outcome/Goals Maintain/ Improve Skin Intergrity Progression Toward Outcome/Goals Progressing Medicine Note: Length of Stay: 2 weeks Anticipated Discharge Destination: Tentative Discharge Date: 07/13/18 Discharged to: Home
[2018-06-28] MEDS: Senna TAB PO PRN (13:32)
--- NOTE | 2018-06-28 15:25 | PN ---
Progress Note Date of Service: 06/28/18 Note: SUGEY BELL was visited. Therapy notes read and reviewed. He was discussed in interdisciplinary team rounds. He did fairly well but needs a lot of help. Emotional which is not new. He complains of his foot being cold. Toes appear husky blue but he has a DP pulse. I ordered a doppler waveform after discussing it with his vascular surgeon. Will also get venous doppler to rule out DVT Current Medications: Active Medications Generic Name Dose Route Start Last Admin Trade Name Freq PRN Reason Stop Dose Admin Acetaminophen 650 mg 06/27/18 15:08 Tylenol Tab* PO Q6H PRN FEVER/PAIN Hydrocodone Bitart/Acetaminophen 1 tab 06/28/18 07:04 [place] 5-325 Tab* PO Q4H PRN PAIN Albuterol 2 puff 06/27/18 15:23 Ventolin Hfa Inhaler* INH Q6H PRN SOB/WHEEZING Alprazolam 0.5 mg 06/27/18 15:20 06/27/18 22:13 Xanax Tab* PO 0.5 mg BID PRN Administration ANXIETY Aspirin 81 mg 06/27/18 21:00 06/27/18 22:14 Aspirin Ec Tab* PO 81 mg 2100 EVELIO Administration Bupropion HCl 150 mg 06/28/18 09:00 06/28/18 09:28 Wellbutrin Xl * PO 150 mg DAILY EVELIO Administration Protocol Carbidopa/Levodopa 1 tab 06/27/18 15:29 06/28/18 00:56 Sinemet 25/100 Tab(*) PO 1 tab BID PRN Administration Restless Legs Clopidogrel Bisulfate 75 mg 06/28/18 09:00 06/28/18 09:28 Plavix Tab* PO 75 mg DAILY EVELIO Administration Docusate Sodium 100 mg 06/27/18 21:00 06/28/18 09:27 Colace Cap* PO 100 mg BID EVELIO Administration Enalapril Maleate 5 mg 06/27/18 18:00 06/27/18 17:39 Vasotec Tab* PO 5 mg 1800 EVELIO Administration Enalapril Maleate 10 mg 06/28/18 09:00 06/28/18 09:28 Vasotec Tab* PO 10 mg 0900 EVELIO Administration Heparin Sodium (Porcine) 5,000 units 06/27/18 22:00 06/28/18 13:34 Heparin Vial(*) SUBCUT 5,000 units Q8HR EVELIO Administration Hydroxyzine HCl 25 mg 06/27/18 15:27 06/28/18 06:10 Atarax Tab* PO 25 mg Q6H PRN Administration itch Levothyroxine Sodium 150 mcg 06/28/18 06:00 06/28/18 05:16 Synthroid Tab* PO 150 mcg DAILY@0600 EVELIO Administration Metoprolol Succinate 25 mg 06/28/18 09:00 06/28/18 09:28 Toprol Xl Tab* PO 25 mg DAILY EVELIO Administration Mometasone Furoate 2 puff 06/27/18 18:00 06/27/18 17:41 Asmanex 220 Mcg Mdi * INH 2 puff QPM EVELIO Administration Pantoprazole Sodium 40 mg 06/27/18 21:00 06/27/18 22:14 Protonix Tab (Nf) PO 40 mg 2100 EVELOI Administration Senna 2 tab 06/27/18 15:08 06/28/18 13:32 Senokot Tab* PO 2 tab BEDTIME PRN Administration CONSTIPATION Torsemide 10 mg 06/28/18 09:00 06/28/18 09:28 Demadex* PO 10 mg DAILY EVELIO Administration Vital Signs: Vital Signs Temp Pulse Resp BP Pulse Ox 97.7 F 64 20 129/69 91 06/28/18 05:11 06/28/18 05:11 06/28/18 05:11 06/28/18 05:11 06/28/18 05:11 Lab Results: Laboratory Results - last 24 hr 06/28/18 06/28/18 05:07 05:07 WBC 7.7 RBC 2.76 L Hgb 9.1 L Hct 28 L MCV 100 H MCH 33 H MCHC 33 RDW 17 H Plt Count 185 MPV 6.7 L Neut % (Auto) 70.8 Lymph % (Auto) 13.0 Mcpherson % (Auto) 8.0 Eos % (Auto) 7.1 Baso % (Auto) 1.1 Absolute Neuts (auto) 5.5 Absolute Lymphs (auto) 1.0 Absolute Monos (auto) 0.6 Absolute Eos (auto) 0.6 Absolute Basos (auto) 0.1 Absolute Nucleated RBC 0 Nucleated RBC % 0.1 Sodium 142 Potassium 3.7 Chloride 112 H Carbon Dioxide 22 Anion Gap 8 BUN 23 Creatinine 1.01 Est GFR ( Amer) 85.4 Est GFR (Non-Af Amer) 70.5 BUN/Creatinine Ratio 22.8 H Glucose 88 Calcium 8.5 L Total Bilirubin 0.90 AST 14 ALT 4 L Alkaline Phosphatase 74 Total Protein 5.3 L Albumin 2.9 L Globulin 2.4 Albumin/Globulin Ratio 1.2 Exam: GENERAL: Alert, oriented LUNGS: Clear bilaterally HEART: regular rhythm ABDOMEN: Soft, +BS EXTREMITIES: 2+ edema, both feet. Dorsalis Pedis pulse present in right foot. Both feet cool to touch NEUROLOGIC: Able to move a 4 extremities. Right leg a little weak, may have decreased sensation on sole of foot. Assessment/Plan: 1. Critical limb Ischemia, right foot: PT/OT. WBAT. Plavix/ASA, S/P SFA to peroneal bypass 2. Atrial Fibrillation: Pacemaker. Toprol XL 3. Edema: Chava Wrap. Await venous doppler 4. GERD/GI Bleed: PPI 5. DVT Prophylaxis: Heparin 6. Advanced Directives: Full Code 7. Anxiety: Xanax 06/28/18 15:25
[2018-06-28] MEDS: Mometasone 220 MCG MDI INH SCH (19:26)
[2018-06-28] MEDS: CMC:Pantoprazole TAB (NF) 40 MG TAB PO SCH (21:24)
[2018-06-28] MEDS: ALPRAZolam TAB* 0.5 MG PO PRN ×2 (21:24→22:53)
[2018-06-28] MEDS: Aspirin EC TAB* 81 MG TAB.EC PO SCH (21:25)
[2018-06-28] MEDS: Acetaminophen TAB* 325 MG PO PRN (22:53)
[2018-06-29] MEDS: HYDROcodone/ACETAMIN 5-325 MG* 1 TAB PO PRN ×6 (01:45→22:18)
[2018-06-29] MEDS ORDERED: HYDROcodone/ACETAMIN 5-325 MG* 1 TAB PO ONE (04:24)
[2018-06-29] MEDS: Levothyroxine TAB* 150 MCG TAB PO SCH (05:02)
[2018-06-29] MEDS: Heparin VIAL(*) 5000 UNITS/ML VIAL (FIVE THOUSAND) SUBCUT SCH ×3 (05:03→21:37)
[2018-06-29] MEDS: BuPROPion XL* 150 MG TAB.XL PO SCH (09:37)
[2018-06-29] MEDS: Docusate CAP* 100 MG PO SCH ×2 (09:37→21:36)
[2018-06-29] MEDS: Enalapril TAB* 5 MG PO SCH ×2 (09:38→18:18)
[2018-06-29] MEDS: Clopidogrel TAB* 75 MG PO SCH (09:38)
[2018-06-29] MEDS: Torsemide TAB* 20 MG PO SCH (09:38)
[2018-06-29] MEDS: Metoprolol Succinate XL TAB* 25 MG PO SCH (09:38)
--- NOTE | 2018-06-29 13:18 | PN ---
Progress Note Date of Service: 06/29/18 Note: SUGEY BELL was visited. Therapy notes read and reviewed. He had a bit more pain last night but feels better today. Foot felt warmer today. He may have overdone it with PT yesterday. I spoke with vascular coverage at [facility] and they believe he should be watched at present as long as pulses are there. Current Medications: Active Medications Generic Name Dose Route Start Last Admin Trade Name Freq PRN Reason Stop Dose Admin Acetaminophen 650 mg 06/27/18 15:08 06/28/18 22:53 Tylenol Tab* PO 650 mg Q6H PRN Administration FEVER/PAIN Hydrocodone Bitart/Acetaminophen 1 tab 06/28/18 07:04 06/29/18 09:40 [place] 5-325 Tab* PO 1 tab Q4H PRN Administration PAIN Hydrocodone Bitart/Acetaminophen 2 tab 06/29/18 13:16 [place] 5-325 Tab* PO Q4H PRN PAIN - SEVERE Albuterol 2 puff 06/27/18 15:23 Ventolin Hfa Inhaler* INH Q6H PRN SOB/WHEEZING Alprazolam 0.5 mg 06/27/18 15:20 06/28/18 22:53 Xanax Tab* PO 0.5 mg BID PRN Administration ANXIETY Aspirin 81 mg 06/27/18 21:00 06/28/18 21:25 Aspirin Ec Tab* PO 81 mg 2100 EVELIO Administration Bupropion HCl 150 mg 06/28/18 09:00 06/29/18 09:37 Wellbutrin Xl * PO 150 mg DAILY EVELIO Administration Protocol Carbidopa/Levodopa 1 tab 06/27/18 15:29 06/28/18 19:24 Sinemet 25/100 Tab(*) PO 1 tab BID PRN Administration Restless Legs Clopidogrel Bisulfate 75 mg 06/28/18 09:00 06/29/18 09:38 Plavix Tab* PO 75 mg DAILY EVELIO Administration Docusate Sodium 100 mg 06/27/18 21:00 06/29/18 09:37 Colace Cap* PO 100 mg BID EVELIO Administration Enalapril Maleate 5 mg 06/27/18 18:00 06/28/18 19:25 Vasotec Tab* PO 5 mg 1800 EVELIO Administration Enalapril Maleate 10 mg 06/28/18 09:00 06/29/18 09:38 Vasotec Tab* PO 10 mg 0900 EVELIO Administration Heparin Sodium (Porcine) 5,000 units 06/27/18 22:00 06/29/18 05:03 Heparin Vial(*) SUBCUT 5,000 units Q8HR EVELIO Administration Hydroxyzine HCl 25 mg 06/27/18 15:27 06/28/18 23:33 Atarax Tab* PO 25 mg Q6H PRN Administration itch Levothyroxine Sodium 150 mcg 06/28/18 06:00 06/29/18 05:02 Synthroid Tab* PO 150 mcg DAILY@0600 EVELIO Administration Metoprolol Succinate 25 mg 06/28/18 09:00 06/29/18 09:38 Toprol Xl Tab* PO 25 mg DAILY EVELIO Administration Mometasone Furoate 2 puff 06/27/18 18:00 06/28/18 19:26 Asmanex 220 Mcg Mdi * INH 2 puff QPM EVELIO Administration Ondansetron HCl 4 mg 06/29/18 13:16 Zofran Odt Tab* PO Q6H PRN NAUSEA Pantoprazole Sodium 40 mg 06/27/18 21:00 06/28/18 21:24 Protonix Tab (Nf) PO 40 mg 2100 EVELIO Administration Senna 2 tab 06/27/18 15:08 06/28/18 13:32 Senokot Tab* PO 2 tab BEDTIME PRN Administration CONSTIPATION Torsemide 10 mg 06/28/18 09:00 06/29/18 09:38 Demadex* PO 10 mg DAILY EVELIO Administration Vital Signs: Vital Signs Temp Pulse Resp BP Pulse Ox 98.2 F 60 16 125/70 98 06/29/18 05:05 06/29/18 05:05 06/29/18 09:40 06/29/18 05:05 06/29/18 05:05 Exam: GENERAL: Alert, oriented LUNGS: Clear bilaterally HEART: regular rhythm ABDOMEN: Soft, +BS EXTREMITIES: 2+ edema, both feet. Dorsalis Pedis pulse present in right foot. NEUROLOGIC: Able to move a 4 extremities. Right leg a little weak, may have decreased sensation on sole of foot. Assessment/Plan: 1. Critical limb Ischemia, right foot: PT/OT. WBAT. Plavix/ASA, S/P SFA to peroneal bypass 2. Atrial Fibrillation: Pacemaker. Toprol XL 3. Edema: Chava Wrap. Await venous doppler 4. GERD/GI Bleed: PPI 5. DVT Prophylaxis: Heparin 6. Advanced Directives: Full Code 7. Anxiety: Xanax 06/29/18 13:18
[2018-06-29] MEDS: Ondansetron ODT TAB* 4 MG PO PRN (13:32)
[2018-06-29] MEDS: Mometasone 220 MCG MDI INH SCH (19:49)
[2018-06-29] MEDS: Aspirin EC TAB* 81 MG TAB.EC PO SCH (21:36)
[2018-06-29] MEDS: CMC:Pantoprazole TAB (NF) 40 MG TAB PO SCH (21:36)
[2018-06-30] MEDS: HYDROcodone/ACETAMIN 5-325 MG* 1 TAB PO PRN ×3 (03:40→21:56)
[2018-06-30] MEDS: Levothyroxine TAB* 150 MCG TAB PO SCH (05:44)
[2018-06-30] MEDS: Heparin VIAL(*) 5000 UNITS/ML VIAL (FIVE THOUSAND) SUBCUT SCH ×3 (05:44→21:58)
[2018-06-30] MEDS: Clopidogrel TAB* 75 MG PO SCH (09:06)
[2018-06-30] MEDS: Metoprolol Succinate XL TAB* 25 MG PO SCH (09:06)
[2018-06-30] MEDS: Enalapril TAB* 5 MG PO SCH ×2 (09:06→18:03)
[2018-06-30] MEDS: BuPROPion XL* 150 MG TAB.XL PO SCH (09:06)
[2018-06-30] MEDS: Docusate CAP* 100 MG PO SCH ×2 (09:06→21:55)
[2018-06-30] MEDS: Torsemide TAB* 20 MG PO SCH (09:07)
[2018-06-30] MEDS: Ondansetron ODT TAB* 4 MG PO PRN (09:10)
[2018-06-30] MEDS: Mometasone 220 MCG MDI INH SCH (18:03)
--- NOTE | 2018-06-30 20:32 | PN ---
Progress Note Date of Service: 06/30/18 Note: SUGEY Thao AARONJOSÉ LUIS was visited. Therapy notes read and reviewed. A little more pain in the foot after physical therapy. He had a wound care consult and they recommended lowering his pressure to 75 Current Medications: Active Medications Generic Name Dose Route Start Last Admin Trade Name Freq PRN Reason Stop Dose Admin Acetaminophen 650 mg 06/27/18 15:08 06/28/18 22:53 Tylenol Tab* PO 650 mg Q6H PRN Administration FEVER/PAIN Hydrocodone Bitart/Acetaminophen 1 tab 06/28/18 07:04 06/29/18 09:40 [place] 5-325 Tab* PO 1 tab Q4H PRN Administration PAIN Hydrocodone Bitart/Acetaminophen 2 tab 06/29/18 13:16 06/30/18 16:41 [place] 5-325 Tab* PO 2 tab Q4H PRN Administration PAIN - SEVERE Albuterol 2 puff 06/27/18 15:23 Ventolin Hfa Inhaler* INH Q6H PRN SOB/WHEEZING Alprazolam 0.5 mg 06/27/18 15:20 06/28/18 22:53 Xanax Tab* PO 0.5 mg BID PRN Administration ANXIETY Aspirin 81 mg 06/27/18 21:00 06/29/18 21:36 Aspirin Ec Tab* PO 81 mg 2100 EVELIO Administration Bupropion HCl 150 mg 06/28/18 09:00 06/30/18 09:06 Wellbutrin Xl * PO 150 mg DAILY EVELIO Administration Protocol Carbidopa/Levodopa 1 tab 06/27/18 15:29 06/28/18 19:24 Sinemet 25/100 Tab(*) PO 1 tab BID PRN Administration Restless Legs Clopidogrel Bisulfate 75 mg 06/28/18 09:00 06/30/18 09:06 Plavix Tab* PO 75 mg DAILY EVELIO Administration Docusate Sodium 100 mg 06/27/18 21:00 06/30/18 09:06 Colace Cap* PO 100 mg BID EVELIO Administration Enalapril Maleate 5 mg 06/27/18 18:00 06/30/18 18:03 Vasotec Tab* PO 5 mg 1800 EVELIO Administration Enalapril Maleate 10 mg 06/28/18 09:00 06/30/18 09:06 Vasotec Tab* PO 10 mg 0900 EVELIO Administration Heparin Sodium (Porcine) 5,000 units 06/27/18 22:00 06/30/18 15:42 Heparin Vial(*) SUBCUT 5,000 units Q8HR EVELIO Administration Hydroxyzine HCl 25 mg 06/27/18 15:27 06/28/18 23:33 Atarax Tab* PO 25 mg Q6H PRN Administration itch Levothyroxine Sodium 150 mcg 06/28/18 06:00 06/30/18 05:44 Synthroid Tab* PO 150 mcg DAILY@0600 EVELIO Administration Metoprolol Succinate 25 mg 06/28/18 09:00 06/30/18 09:06 Toprol Xl Tab* PO 25 mg DAILY EVELIO Administration Mometasone Furoate 2 puff 06/27/18 18:00 06/30/18 18:03 Asmanex 220 Mcg Mdi * INH 2 puff QPM EVELIO Administration Ondansetron HCl 4 mg 06/29/18 13:16 06/30/18 09:10 Zofran Odt Tab* PO 4 mg Q6H PRN Administration NAUSEA Pantoprazole Sodium 40 mg 06/27/18 21:00 06/29/18 21:36 Protonix Tab (Nf) PO 40 mg 2100 EVELIO Administration Senna 2 tab 06/27/18 15:08 06/28/18 13:32 Senokot Tab* PO 2 tab BEDTIME PRN Administration CONSTIPATION Torsemide 10 mg 06/28/18 09:00 06/30/18 09:07 Demadex* PO 10 mg DAILY EVELIO Administration Vital Signs: Vital Signs Temp Pulse Resp BP Pulse Ox 97.6 F 62 16 121/65 95 06/30/18 15:47 06/30/18 15:47 06/30/18 18:50 06/30/18 15:47 06/30/18 15:47 Exam: GENERAL: Alert, oriented LUNGS: Clear bilaterally HEART: regular rhythm ABDOMEN: Soft, +BS EXTREMITIES: 2+ edema, both feet. Dorsalis Pedis pulse present in right foot. NEUROLOGIC: Able to move a 4 extremities. Right leg a little weak, may have decreased sensation on sole of foot. Assessment/Plan: 1. Critical limb Ischemia, right foot: PT/OT. WBAT. Plavix/ASA, S/P bypass 2. Atrial Fibrillation: Pacemaker. Toprol XL 3. Edema: Chava Wrap. 4. GERD/GI Bleed: PPI 5. DVT Prophylaxis: Heparin 6. Advanced Directives: Full Code 7. Anxiety: Xanax 06/30/18 20:32 06/30/18 20:33
[2018-06-30] MEDS: Aspirin EC TAB* 81 MG TAB.EC PO SCH (21:55)
[2018-06-30] MEDS: Senna TAB PO PRN (21:55)
[2018-06-30] MEDS: hydrOXYzine HCL TAB* 25 MG PO PRN (21:56)
[2018-06-30] MEDS: CMC:Pantoprazole TAB (NF) 40 MG TAB PO SCH (22:19)
[2018-07-01] MEDS: HYDROcodone/ACETAMIN 5-325 MG* 1 TAB PO PRN ×4 (02:05→20:27)
[2018-07-01] MEDS: Levothyroxine TAB* 150 MCG TAB PO SCH (05:34)
[2018-07-01] MEDS: Heparin VIAL(*) 5000 UNITS/ML VIAL (FIVE THOUSAND) SUBCUT SCH ×3 (05:34→21:07)
[2018-07-01] MEDS: ALPRAZolam TAB* 0.5 MG PO PRN (06:12)
[2018-07-01] MEDS: BuPROPion XL* 150 MG TAB.XL PO SCH (09:17)
[2018-07-01] MEDS: Enalapril TAB* 5 MG PO SCH ×2 (09:18→16:57)
[2018-07-01] MEDS: Clopidogrel TAB* 75 MG PO SCH (09:18)
[2018-07-01] MEDS: Metoprolol Succinate XL TAB* 25 MG PO SCH (09:18)
[2018-07-01] MEDS: Docusate CAP* 100 MG PO SCH ×2 (09:18→20:28)
[2018-07-01] MEDS: Torsemide TAB* 20 MG PO SCH (09:18)
[2018-07-01] MEDS: Mometasone 220 MCG MDI INH SCH (16:57)
[2018-07-01] MEDS: CMC:Pantoprazole TAB (NF) 40 MG TAB PO SCH (20:27)
[2018-07-01] MEDS: Aspirin EC TAB* 81 MG TAB.EC PO SCH (20:27)
--- NOTE | 2018-07-01 20:38 | PN ---
Progress Note Date of Service: 07/01/18 Note: SUGEY Thao AARONJOSÉ LUIS was visited. Therapy notes read and reviewed. Able to walk much further today. Current Medications: Active Medications Generic Name Dose Route Start Last Admin Trade Name Freq PRN Reason Stop Dose Admin Acetaminophen 650 mg 06/27/18 15:08 06/28/18 22:53 Tylenol Tab* PO 650 mg Q6H PRN Administration FEVER/PAIN Hydrocodone Bitart/Acetaminophen 1 tab 06/28/18 07:04 07/01/18 20:27 [place] 5-325 Tab* PO 1 tab Q4H PRN Administration PAIN Hydrocodone Bitart/Acetaminophen 2 tab 06/29/18 13:16 07/01/18 09:18 [place] 5-325 Tab* PO 2 tab Q4H PRN Administration PAIN - SEVERE Albuterol 2 puff 06/27/18 15:23 Ventolin Hfa Inhaler* INH Q6H PRN SOB/WHEEZING Alprazolam 0.5 mg 06/27/18 15:20 07/01/18 06:12 Xanax Tab* PO 0.5 mg BID PRN Administration ANXIETY Aspirin 81 mg 06/27/18 21:00 07/01/18 20:27 Aspirin Ec Tab* PO 81 mg 2100 EVELIO Administration Bupropion HCl 150 mg 06/28/18 09:00 07/01/18 09:17 Wellbutrin Xl * PO 150 mg DAILY EVELIO Administration Protocol Carbidopa/Levodopa 1 tab 06/27/18 15:29 06/28/18 19:24 Sinemet 25/100 Tab(*) PO 1 tab BID PRN Administration Restless Legs Clopidogrel Bisulfate 75 mg 06/28/18 09:00 07/01/18 09:18 Plavix Tab* PO 75 mg DAILY EVELIO Administration Docusate Sodium 100 mg 06/27/18 21:00 07/01/18 20:28 Colace Cap* PO 100 mg BID EVELIO Administration Enalapril Maleate 5 mg 06/27/18 18:00 07/01/18 16:57 Vasotec Tab* PO 5 mg 1800 EVELIO Administration Enalapril Maleate 10 mg 06/28/18 09:00 07/01/18 09:18 Vasotec Tab* PO 10 mg 0900 EVELIO Administration Heparin Sodium (Porcine) 5,000 units 06/27/18 22:00 07/01/18 14:22 Heparin Vial(*) SUBCUT 5,000 units Q8HR EVELIO Administration Hydroxyzine HCl 25 mg 06/27/18 15:27 06/30/18 21:56 Atarax Tab* PO 25 mg Q6H PRN Administration itch Levothyroxine Sodium 150 mcg 06/28/18 06:00 07/01/18 05:34 Synthroid Tab* PO 150 mcg DAILY@0600 EVELIO Administration Metoprolol Succinate 25 mg 06/28/18 09:00 07/01/18 09:18 Toprol Xl Tab* PO 25 mg DAILY EVELIO Administration Mometasone Furoate 2 puff 06/27/18 18:00 07/01/18 16:57 Asmanex 220 Mcg Mdi * INH 2 puff QPM EVELIO Administration Ondansetron HCl 4 mg 06/29/18 13:16 06/30/18 09:10 Zofran Odt Tab* PO 4 mg Q6H PRN Administration NAUSEA Pantoprazole Sodium 40 mg 06/27/18 21:00 07/01/18 20:27 Protonix Tab (Nf) PO 40 mg 2100 EVELIO Administration Senna 2 tab 06/27/18 15:08 06/30/18 21:55 Senokot Tab* PO 2 tab BEDTIME PRN Administration CONSTIPATION Torsemide 10 mg 06/28/18 09:00 07/01/18 09:18 Demadex* PO 10 mg DAILY EVELIO Administration Vital Signs: Vital Signs Temp Pulse Resp BP Pulse Ox 98.1 F 61 17 114/70 98 07/01/18 15:55 07/01/18 15:55 07/01/18 20:27 07/01/18 15:55 07/01/18 15:55 Exam: GENERAL: Alert, oriented LUNGS: Clear bilaterally HEART: regular rhythm ABDOMEN: Soft, +BS EXTREMITIES: 2+ edema, both feet. Dorsalis Pedis pulse present in right foot. NEUROLOGIC: Able to move a 4 extremities. Right leg a little weak, may have decreased sensation on sole of foot. Assessment/Plan: 1. Critical limb Ischemia, right foot: PT/OT. WBAT. Plavix/ASA, S/P bypass. Follow up with surgeon 07/09/18 2. Atrial Fibrillation: Pacemaker. Toprol XL 3. Edema: Chava Wrap. 4. GERD/GI Bleed: PPI 5. DVT Prophylaxis: Heparin 6. Advanced Directives: Full Code 7. Anxiety/Panic Attacks: Xanax 07/01/18 20:38
[2018-07-01] MEDS: hydrOXYzine HCL TAB* 25 MG PO PRN (22:05)
[2018-07-01] MEDS: Carbidopa/Levodop 25/100 MG TAB(*) PO PRN (23:59)
[2018-07-02] MEDS: HYDROcodone/ACETAMIN 5-325 MG* 1 TAB PO PRN ×5 (00:28→22:50)
[2018-07-02] MEDS: Levothyroxine TAB* 150 MCG TAB PO SCH (05:44)
[2018-07-02] MEDS: Heparin VIAL(*) 5000 UNITS/ML VIAL (FIVE THOUSAND) SUBCUT SCH ×3 (05:44→22:48)
[2018-07-02] MEDS: Torsemide TAB* 20 MG PO SCH (08:33)
[2018-07-02] MEDS: Enalapril TAB* 5 MG PO SCH ×2 (08:33→17:52)
[2018-07-02] MEDS: Metoprolol Succinate XL TAB* 25 MG PO SCH (08:34)
[2018-07-02] MEDS: Docusate CAP* 100 MG PO SCH ×2 (08:34→21:10)
[2018-07-02] MEDS: Clopidogrel TAB* 75 MG PO SCH (08:34)
[2018-07-02] MEDS: BuPROPion XL* 150 MG TAB.XL PO SCH (08:34)
[2018-07-02] MEDS ORDERED: Magnesium Hydroxide LIQ* 30 ML UDC PO PRN (19:37)
[2018-07-02] MEDS ORDERED: Polyethylene Glycol 3350* 17 GM PACKET PO PRN (19:38)
--- NOTE | 2018-07-02 19:40 | PN ---
Progress Note Date of Service: 07/02/18 Note: SUGEY BELL was visited. Therapy notes read and reviewed. His wounds were examined with Robin James RN from wound clinic. Healthy tissue along fasciotomy, but some necrotic epidermal tissue at edges. Current Medications: Active Medications Generic Name Dose Route Start Last Admin Trade Name Freq PRN Reason Stop Dose Admin Acetaminophen 650 mg 06/27/18 15:08 06/28/18 22:53 Tylenol Tab* PO 650 mg Q6H PRN Administration FEVER/PAIN Hydrocodone Bitart/Acetaminophen 1 tab 06/28/18 07:04 07/01/18 20:27 [place] 5-325 Tab* PO 1 tab Q4H PRN Administration PAIN Hydrocodone Bitart/Acetaminophen 2 tab 06/29/18 13:16 07/02/18 17:53 [place] 5-325 Tab* PO 2 tab Q4H PRN Administration PAIN - SEVERE Albuterol 2 puff 06/27/18 15:23 Ventolin Hfa Inhaler* INH Q6H PRN SOB/WHEEZING Alprazolam 0.5 mg 06/27/18 15:20 07/01/18 06:12 Xanax Tab* PO 0.5 mg BID PRN Administration ANXIETY Aspirin 81 mg 06/27/18 21:00 07/01/18 20:27 Aspirin Ec Tab* PO 81 mg 2100 EVELIO Administration Bupropion HCl 150 mg 06/28/18 09:00 07/02/18 08:34 Wellbutrin Xl * PO 150 mg DAILY EVELIO Administration Protocol Carbidopa/Levodopa 1 tab 06/27/18 15:29 07/01/18 23:59 Sinemet 25/100 Tab(*) PO 1 tab BID PRN Administration Restless Legs Clopidogrel Bisulfate 75 mg 06/28/18 09:00 07/02/18 08:34 Plavix Tab* PO 75 mg DAILY EVELIO Administration Docusate Sodium 100 mg 06/27/18 21:00 07/02/18 08:34 Colace Cap* PO 100 mg BID EVELIO Administration Enalapril Maleate 5 mg 06/27/18 18:00 07/02/18 17:52 Vasotec Tab* PO 5 mg 1800 EVELIO Administration Enalapril Maleate 10 mg 06/28/18 09:00 07/02/18 08:33 Vasotec Tab* PO 10 mg 0900 EVELIO Administration Heparin Sodium (Porcine) 5,000 units 06/27/18 22:00 07/02/18 15:05 Heparin Vial(*) SUBCUT 5,000 units Q8HR EVELIO Administration Hydroxyzine HCl 25 mg 06/27/18 15:27 07/01/18 22:05 Atarax Tab* PO 25 mg Q6H PRN Administration itch Levothyroxine Sodium 150 mcg 06/28/18 06:00 07/02/18 05:44 Synthroid Tab* PO 150 mcg DAILY@0600 EVELIO Administration Magnesium Hydroxide 30 ml 07/02/18 19:37 Milk Of Magnesia Liq* PO Q6H PRN CONSTIPATION Metoprolol Succinate 25 mg 06/28/18 09:00 07/02/18 08:34 Toprol Xl Tab* PO 25 mg DAILY EVELIO Administration Mometasone Furoate 2 puff 06/27/18 18:00 07/01/18 16:57 Asmanex 220 Mcg Mdi * INH 2 puff QPM EVELIO Administration Ondansetron HCl 4 mg 06/29/18 13:16 06/30/18 09:10 Zofran Odt Tab* PO 4 mg Q6H PRN Administration NAUSEA Pantoprazole Sodium 40 mg 06/27/18 21:00 07/01/18 20:27 Protonix Tab (Nf) PO 40 mg 2100 EVELIO Administration Polyethylene Glycol/Electrolytes 17 gm 07/02/18 19:38 Miralax* PO DAILY PRN CONSTIPATION Senna 2 tab 06/27/18 15:08 06/30/18 21:55 Senokot Tab* PO 2 tab BEDTIME PRN Administration CONSTIPATION Torsemide 10 mg 06/28/18 09:00 07/02/18 08:33 Demadex* PO 10 mg DAILY EVELIO Administration Vital Signs: Vital Signs Temp Pulse Resp BP Pulse Ox 98.3 F 74 16 128/79 97 07/02/18 16:31 07/02/18 16:31 07/02/18 17:53 07/02/18 16:31 07/02/18 16:31 Exam: GENERAL: Alert, oriented LUNGS: Clear bilaterally HEART: regular rhythm ABDOMEN: Soft, +BS EXTREMITIES: 2+ edema, both feet. Dorsalis Pedis pulse present in right foot. NEUROLOGIC: Able to move a 4 extremities. Right leg a little weak, may have decreased sensation on sole of foot. Assessment/Plan: 1. Critical limb Ischemia, right foot: PT/OT. WBAT. Plavix/ASA, S/P bypass. Follow up with surgeon 07/09/18 2. Atrial Fibrillation: Pacemaker. Toprol XL 3. Edema: Chava Wrap. 4. GERD/GI Bleed: PPI 5. DVT Prophylaxis: Heparin 6. Advanced Directives: Full Code 7. Fasciotomy: Wound VAC 8. Anxiety/Panic Attacks: Xanax 07/02/18 19:40
[2018-07-02] MEDS: Mometasone 220 MCG MDI INH SCH (19:55)
[2018-07-02] MEDS: Aspirin EC TAB* 81 MG TAB.EC PO SCH (21:10)
[2018-07-02] MEDS: CMC:Pantoprazole TAB (NF) 40 MG TAB PO SCH (21:10)
[2018-07-02] MEDS: Carbidopa/Levodop 25/100 MG TAB(*) PO PRN (22:49)
[2018-07-03] MEDS: Acetaminophen TAB* 325 MG PO PRN (00:58)
[2018-07-03] MEDS: HYDROcodone/ACETAMIN 5-325 MG* 1 TAB PO PRN ×3 (04:04→22:01)
[2018-07-03] MEDS: ALPRAZolam TAB* 0.5 MG PO PRN ×2 (04:04→23:13)
[2018-07-03] MEDS: Heparin VIAL(*) 5000 UNITS/ML VIAL (FIVE THOUSAND) SUBCUT SCH ×3 (05:32→22:01)
[2018-07-03] MEDS: Levothyroxine TAB* 150 MCG TAB PO SCH (05:32)
[2018-07-03] MEDS: hydrOXYzine HCL TAB* 25 MG PO PRN (05:32)
[2018-07-03] MEDS: Clopidogrel TAB* 75 MG PO SCH (09:00)
[2018-07-03] MEDS: BuPROPion XL* 150 MG TAB.XL PO SCH (09:00)
[2018-07-03] MEDS: Ondansetron ODT TAB* 4 MG PO PRN (09:00)
[2018-07-03] MEDS: Docusate CAP* 100 MG PO SCH ×2 (09:01→20:58)
[2018-07-03] MEDS: Enalapril TAB* 5 MG PO SCH ×2 (09:01→19:01)
[2018-07-03] MEDS: Torsemide TAB* 20 MG PO SCH (09:02)
[2018-07-03] MEDS: Metoprolol Succinate XL TAB* 25 MG PO SCH (09:02)
--- NOTE | 2018-07-03 16:33 | PN ---
Progress Note Date of Service: 07/03/18 Note: SUGEY BELL was visited. Therapy notes read and reviewed. He was able to do therapy but is feeling a little down today. Had nausea this am. Current Medications: Active Medications Generic Name Dose Route Start Last Admin Trade Name Freq PRN Reason Stop Dose Admin Acetaminophen 650 mg 06/27/18 15:08 07/03/18 00:58 Tylenol Tab* PO 650 mg Q6H PRN Administration FEVER/PAIN Hydrocodone Bitart/Acetaminophen 1 tab 06/28/18 07:04 07/01/18 20:27 [place] 5-325 Tab* PO 1 tab Q4H PRN Administration PAIN Hydrocodone Bitart/Acetaminophen 2 tab 06/29/18 13:16 07/03/18 14:15 [place] 5-325 Tab* PO 2 tab Q4H PRN Administration PAIN - SEVERE Albuterol 2 puff 06/27/18 15:23 Ventolin Hfa Inhaler* INH Q6H PRN SOB/WHEEZING Alprazolam 0.5 mg 06/27/18 15:20 07/03/18 04:04 Xanax Tab* PO 0.5 mg BID PRN Administration ANXIETY Aspirin 81 mg 06/27/18 21:00 07/02/18 21:10 Aspirin Ec Tab* PO 81 mg 2100 EVELIO Administration Bupropion HCl 150 mg 06/28/18 09:00 07/03/18 09:00 Wellbutrin Xl * PO 150 mg DAILY EVELIO Administration Protocol Carbidopa/Levodopa 1 tab 06/27/18 15:29 07/02/18 22:49 Sinem[place] 25/100 Tab(*) PO 1 tab BID PRN Administration Restless Legs Clopidogrel Bisulfate 75 mg 06/28/18 09:00 07/03/18 09:00 Plavix Tab* PO 75 mg DAILY EVELIO Administration Docusate Sodium 100 mg 06/27/18 21:00 07/03/18 09:01 Colace Cap* PO 100 mg BID EVELIO Administration Enalapril Maleate 5 mg 06/27/18 18:00 07/02/18 17:52 Vasotec Tab* PO 5 mg 1800 EVELIO Administration Enalapril Maleate 10 mg 06/28/18 09:00 07/03/18 09:01 Vasotec Tab* PO 10 mg 0900 EVELIO Administration Heparin Sodium (Porcine) 5,000 units 06/27/18 22:00 07/03/18 14:15 Heparin Vial(*) SUBCUT 5,000 units Q8HR EVELIO Administration Hydroxyzine HCl 25 mg 06/27/18 15:27 07/03/18 05:32 Atarax Tab* PO 25 mg Q6H PRN Administration itch Levothyroxine Sodium 150 mcg 06/28/18 06:00 07/03/18 05:32 Synthroid Tab* PO 150 mcg DAILY@0600 EVELIO Administration Magnesium Hydroxide 30 ml 07/02/18 19:37 Milk Of Magnesia Liq* PO Q6H PRN CONSTIPATION Metoprolol Succinate 25 mg 06/28/18 09:00 07/03/18 09:02 Toprol Xl Tab* PO 25 mg DAILY EVELIO Administration Mometasone Furoate 2 puff 06/27/18 18:00 07/02/18 19:55 Asmanex 220 Mcg Mdi * INH 2 puff QPM EVELIO Administration Ondansetron HCl 4 mg 06/29/18 13:16 07/03/18 09:00 Zofran Odt Tab* PO 4 mg Q6H PRN Administration NAUSEA Pantoprazole Sodium 40 mg 06/27/18 21:00 07/02/18 21:10 Protonix Tab (Nf) PO 40 mg 2100 EVELIO Administration Polyethylene Glycol/Electrolytes 17 gm 07/02/18 19:38 Miralax* PO DAILY PRN CONSTIPATION Senna 2 tab 06/27/18 15:08 06/30/18 21:55 Senokot Tab* PO 2 tab BEDTIME PRN Administration CONSTIPATION Torsemide 10 mg 06/28/18 09:00 07/03/18 09:02 Demadex* PO 10 mg DAILY EVELIO Administration Vital Signs: Vital Signs Temp Pulse Resp BP Pulse Ox 97.9 F 59 16 127/70 95 07/03/18 05:40 07/03/18 05:40 07/03/18 14:15 07/03/18 05:40 07/03/18 05:40 Exam: GENERAL: Alert, oriented LUNGS: Clear bilaterally HEART: regular rhythm ABDOMEN: Soft, +BS EXTREMITIES: 2+ edema, both feet. Dorsalis Pedis pulse present in right foot. NEUROLOGIC: Able to move a 4 extremities. Right leg a little weak, may have decreased sensation on sole of foot. Assessment/Plan: 1. Critical limb Ischemia, right foot: PT/OT. WBAT. Plavix/ASA, S/P bypass. Follow up with surgeon 07/09/18 2. Atrial Fibrillation: Pacemaker. Toprol XL 3. Edema: Chava Wrap, Demadex. 4. GERD/GI Bleed: PPI 5. DVT Prophylaxis: Heparin 6. Advanced Directives: Full Code 7. Fasciotomy: Wound VAC 8. Anxiety/Panic Attacks: Xanax 07/03/18 16:33
[2018-07-03] MEDS: Mometasone 220 MCG MDI INH SCH (19:51)
[2018-07-03] MEDS: CMC:Pantoprazole TAB (NF) 40 MG TAB PO SCH (20:58)
[2018-07-03] MEDS: Aspirin EC TAB* 81 MG TAB.EC PO SCH (20:58)
[2018-07-03] MEDS: Carbidopa/Levodop 25/100 MG TAB(*) PO PRN (22:05)
[2018-07-04] MEDS: Ondansetron ODT TAB* 4 MG PO PRN
[2018-07-04] MEDS: Heparin VIAL(*) 5000 UNITS/ML VIAL (FIVE THOUSAND) SUBCUT SCH ×3 (05:38→21:22)
[2018-07-04] MEDS: Levothyroxine TAB* 150 MCG TAB PO SCH (05:38)
[2018-07-04] MEDS: Acetaminophen TAB* 325 MG PO PRN ×2 (05:38→13:52)
[2018-07-04] MEDS: BuPROPion XL* 150 MG TAB.XL PO SCH (09:15)
[2018-07-04] MEDS: Clopidogrel TAB* 75 MG PO SCH (09:15)
[2018-07-04] MEDS: Docusate CAP* 100 MG PO SCH ×2 (09:15→21:22)
[2018-07-04] MEDS: Enalapril TAB* 5 MG PO SCH ×2 (09:16→18:43)
[2018-07-04] MEDS: Metoprolol Succinate XL TAB* 25 MG PO SCH (09:16)
[2018-07-04] MEDS: Torsemide TAB* 20 MG PO SCH (09:16)
[2018-07-04] MEDS: ALPRAZolam TAB* 0.5 MG PO PRN ×2 (10:04→21:19)
[2018-07-04] MEDS: Carbidopa/Levodop 25/100 MG TAB(*) PO PRN (13:52)
--- NOTE | 2018-07-04 17:46 | PN ---
Progress Note Date of Service: 07/04/18 Note: SUGEY BELL was visited. Therapy notes read and reviewed. He is having mor epanic attacks today and not sure why, Anxious about return to surgeon. Current Medications: Active Medications Generic Name Dose Route Start Last Admin Trade Name Freq PRN Reason Stop Dose Admin Acetaminophen 650 mg 06/27/18 15:08 07/04/18 13:52 Tylenol Tab* PO 650 mg Q6H PRN Administration FEVER/PAIN Hydrocodone Bitart/Acetaminophen 1 tab 06/28/18 07:04 07/01/18 20:27 [place] 5-325 Tab* PO 1 tab Q4H PRN Administration PAIN Hydrocodone Bitart/Acetaminophen 2 tab 06/29/18 13:16 07/03/18 22:01 [place] 5-325 Tab* PO 2 tab Q4H PRN Administration PAIN - SEVERE Albuterol 2 puff 06/27/18 15:23 Ventolin Hfa Inhaler* INH Q6H PRN SOB/WHEEZING Alprazolam 0.5 mg 06/27/18 15:20 07/04/18 10:04 Xanax Tab* PO 0.5 mg BID PRN Administration ANXIETY Aspirin 81 mg 06/27/18 21:00 07/03/18 20:58 Aspirin Ec Tab* PO 81 mg 2100 EVELIO Administration Bupropion HCl 150 mg 06/28/18 09:00 07/04/18 09:15 Wellbutrin Xl * PO 150 mg DAILY EVELIO Administration Protocol Carbidopa/Levodopa 1 tab 06/27/18 15:29 07/04/18 13:52 [place] 25/100 Tab(*) PO 1 tab BID PRN Administration Restless Legs Clopidogrel Bisulfate 75 mg 06/28/18 09:00 07/04/18 09:15 Plavix Tab* PO 75 mg DAILY EVELIO Administration Docusate Sodium 100 mg 06/27/18 21:00 07/04/18 09:15 Colace Cap* PO 100 mg BID EVELIO Administration Enalapril Maleate 5 mg 06/27/18 18:00 07/03/18 19:01 Vasotec Tab* PO 5 mg 1800 EVELIO Administration Enalapril Maleate 10 mg 06/28/18 09:00 07/04/18 09:16 Vasotec Tab* PO 10 mg 0900 EVELIO Administration Heparin Sodium (Porcine) 5,000 units 06/27/18 22:00 07/04/18 14:20 Heparin Vial(*) SUBCUT 5,000 units Q8HR EVELIO Administration Hydroxyzine HCl 25 mg 06/27/18 15:27 07/03/18 05:32 Atarax Tab* PO 25 mg Q6H PRN Administration itch Levothyroxine Sodium 150 mcg 06/28/18 06:00 07/04/18 05:38 Synthroid Tab* PO 150 mcg DAILY@0600 EVELIO Administration Magnesium Hydroxide 30 ml 07/02/18 19:37 Milk Of Magnesia Liq* PO Q6H PRN CONSTIPATION Metoprolol Succinate 25 mg 06/28/18 09:00 07/04/18 09:16 Toprol Xl Tab* PO 25 mg DAILY EVELIO Administration Mometasone Furoate 2 puff 06/27/18 18:00 07/03/18 19:51 Asmanex 220 Mcg Mdi * INH 2 puff QPM EVELIO Administration Ondansetron HCl 4 mg 06/29/18 13:16 07/04/18 00:00 Zofran Odt Tab* PO 4 mg Q6H PRN Administration NAUSEA Pantoprazole Sodium 40 mg 06/27/18 21:00 07/03/18 20:58 Protonix Tab (Nf) PO 40 mg 2100 EVELIO Administration Polyethylene Glycol/Electrolytes 17 gm 07/02/18 19:38 Miralax* PO DAILY PRN CONSTIPATION Senna 2 tab 06/27/18 15:08 06/30/18 21:55 Senokot Tab* PO 2 tab BEDTIME PRN Administration CONSTIPATION Torsemide 10 mg 06/28/18 09:00 07/04/18 09:16 Demadex* PO 10 mg DAILY EVELIO Administration Vital Signs: Vital Signs Temp Pulse Resp BP Pulse Ox 97.7 F 64 16 133/74 97 07/04/18 05:34 07/04/18 05:34 07/04/18 10:04 07/04/18 05:34 07/04/18 05:34 Exam: GENERAL: Alert, oriented LUNGS: Clear bilaterally HEART: regular rhythm ABDOMEN: Soft, +BS EXTREMITIES: 2+ edema, both feet. Dorsalis Pedis pulse present in right foot. NEUROLOGIC: Able to move a 4 extremities. Right leg a little weak, may have decreased sensation on sole of foot. Assessment/Plan: 1. Critical limb Ischemia, right foot: PT/OT. WBAT. Plavix/ASA, S/P bypass. Follow up with surgeon 07/09/18 2. Atrial Fibrillation: Pacemaker. Toprol XL 3. Edema: Chava Wrap, Demadex. 4. GERD/GI Bleed: PPI 5. DVT Prophylaxis: Heparin 6. Advanced Directives: Full Code 7. Fasciotomy: Wound VAC 8. Anxiety/Panic Attacks: Xanax 07/04/18 17:46
[2018-07-04] MEDS: Mometasone 220 MCG MDI INH SCH (20:38)
[2018-07-04] MEDS: Aspirin EC TAB* 81 MG TAB.EC PO SCH (21:17)
[2018-07-04] MEDS: CMC:Pantoprazole TAB (NF) 40 MG TAB PO SCH (21:18)
[2018-07-04] MEDS: HYDROcodone/ACETAMIN 5-325 MG* 1 TAB PO PRN (21:19)
[2018-07-05] MEDS: HYDROcodone/ACETAMIN 5-325 MG* 1 TAB PO PRN ×4 (02:21→21:46)
[2018-07-05] MEDS: Heparin VIAL(*) 5000 UNITS/ML VIAL (FIVE THOUSAND) SUBCUT SCH ×3 (06:08→21:51)
[2018-07-05] MEDS: Levothyroxine TAB* 150 MCG TAB PO SCH (06:08)
[2018-07-05 06:53] LABS: ABS Basophils 0.1 10^3/ul (0-0.2); ABS Eosinophils 0.6 10^3/ul (0-0.6); ABS Lymphocytes 0.8 10^3/ul (1.0-4.8); ABS Monocytes 0.6 10^3/ul (0-0.8); ABS Neutrophils 3.7 10^3/ul (1.5-7.7); ABS Nucleated RBC 0 10^3/ul; Eosinophil % 9.5 %; Hematocrit 26 % (42-52); Hemoglobin 8.6 g/dl (14.0-18.0); Lymphocyte % 14.6 %; Mean Corpuscular HGB Conc 34 g/dl (31-36); Mean Corpuscular Hemoglobin 33 pg (27-31); Mean Corpuscular Volume 98 fL (80-94); Nucleated Red Blood Cells % 0; Platelet Count 208 10^3/ul (150-450); Red Cell Distribution Width 16 % (10.5-15); White Blood Count 5.8 10^3/ul (3.5-10.8)
[2018-07-05 06:56] LABS: Albumin 2.8 g/dL (3.2-5.2); Albumin/Globulin Ratio 1.2 (1-3); Calcium 8.5 mg/dL (8.6-10.3); EGFR Non-African American 56.7 (>60); Globulin 2.4 g/dL (2-4); Total Bilirubin 0.8 mg/dL (0.2-1.0); Total Protein 5.2 g/dL (6.4-8.9)
[2018-07-05] MEDS: Ondansetron ODT TAB* 4 MG PO PRN (09:33)
[2018-07-05] MEDS: Metoprolol Succinate XL TAB* 25 MG PO SCH (09:34)
[2018-07-05] MEDS: Enalapril TAB* 5 MG PO SCH ×2 (09:34→18:12)
[2018-07-05] MEDS: Docusate CAP* 100 MG PO SCH ×2 (09:34→21:46)
[2018-07-05] MEDS: Torsemide TAB* 20 MG PO SCH (09:34)
[2018-07-05] MEDS: Clopidogrel TAB* 75 MG PO SCH (09:34)
--- NOTE | 2018-07-05 12:40 | PMRUTEAM ---
PMRU: Team Meeting Current Status: Nursing: Current Status Skin Deviations [Bilateral Bruise Flank] Skin Deviations [Coccyx] Other Skin Deviations [Bilateral Leg Bruise ] Skin Deviations [Right Groin] Incision Skin Deviations [Right Medial Incision Thigh] Skin Deviations [Right Knee] Abrasion Skin Deviations [Right Lower Incision Anterior Leg] Skin Deviation Description [ red and blanchable Coccyx] Skin Deviation Description [ healing well. reddened Right Groin] Skin Deviation Description [ healing Right Medial Thigh] Skin Deviation Description [ healing well. NHAN Right Knee] Skin Deviation Description [ wound vac in place. Right Lower Anterior Leg] Drain Type [Right Lower Wound Vac Anterior Leg] Bladder Current Status using urinal to void Bowel Current Status colace given Nutrition Current Status appetite good Medication Current Status needs reinforcement Physical Therapy: Current Status Bed Mobility Assistance Supervision,Min Assist Transfer Mobility Assistance Supervision Transfer/Bed Mobility Rolling Walker Recommended Devices Transfer Mobility Comment pt. is able to perform a transfer using a 2 w/w. Ambulation Assistance Supervision Ambulation Assistive Devices Rolling Walker Number of Feet Patient 150' Ambulated Ambulation Comment pt. presents a slow modified reciprocal tyoe gait pattern. Stairs Assistance Not Tested Stairs Recommended Devices Two Rails Number of Stairs 5 Curb Not Tested Wheelchair Propulsion Ability Maximum Assistance Wheelchair Distance (ft) 100 Occupational Therapy: Current Status Upper Body Dressing Supervision Lower Body Dressing Min Assist,Mod Assist Bathing Min Assist Toileting Min Assist Toilet Transfer Supervision,Contact Guard Assist Shower Transfer Supervision,Contact Guard Assist Eating Independent Rec Therapy: Current Status Summary of Assessment and Membership Sales Manager briefly visited with the patient and his Clinical Impression family yesterday to introduce RT services. Patient was open to meeting later on to discuss his leisure lifestyle. Patient open to meeting today, was euthymic with congruent affect. Patient was able to identify leisure interests and enjoyed telling stories of his family. Patient may have his iPod brought in at some point, verse writer offered to bring in a radio but he declined at this time. Treatment Goals Patient will engage in recreation and leisure activities while on the unit. Treatment Plan Provide and encourage involvement in RT services. Follow up to provide opportunities for socialization and reminiscing. Social Work: Current Status Discharge Plan return home with home care svs and family support Potential for Family Training pt's is involved and supportive Anticipated Discharge Home Destination Discharge With home care svs and family support Nutrition: Current Status Monitoring Visited pt this afternoon. Pt reports poor appetite, but is trying to eat something at each meal, and is focusing on protein. Pt likes tapioca and rice pudding; declined offer of daily snack to promote intake. Reviewed heart healthy diet; pt states he usually does not add salt to food at home. Last BM 06/28. No acute nutrition needs identified per interview; no signs of muscle or fat wasting observed. Will continue to follow. Goals: Physical Therapy: Initial Goals Bed Mobility Assistance Independent Transfer Mobility Assistance Independent Transfer/Bed Mobility Rolling Walker Recommended Devices Ambulation Independent Ambulation Recommended Devices Rolling Walker Ambulation Distance 150 Stairs Assistance Independent Stair Recommended Devices One Rail Number of Stairs 5 Home Exercise Program Independent Assistance Physical Therapy: Updated Goals Bed Mobility Assistance Independent Transfer Mobility Assistance Independent Transfer/Bed Mobility Rolling Walker Recommended Devices Ambulation Assistance Independent Ambulation Assistive Devices Rolling Walker Ambulation Distance (ft) 150 Stairs Assistance Independent Stairs Recommended Devices One Rail Number of Stairs 5 Home Exercise Program Independent Assistance Occupational Therapy: Initial Goals Goals to be Completed in (Days 2-3 weeks ) Upper Body Bathing Routine Modified Independent with Lower Body Bathing Routine Modified Independent with Upper Body Dressing Routine Independent Lower Body Dressing Routine Modified Independent with Toilet Hygeine and Clothing Modified Independent with Management Routine Toilet Transfer Routine Modified Independent with Step-In Shower Transfer Modified Independent with Routine Functional Transfers for ADL Modified Independent with Grooming Routine Independent Feeding Routine Independent Nursing: Goals Bladder Goal independent Bowel Goal last bm 07/04/18 Nutrition Goal 100% of all meals Medication Goal supervision Nutrition: Goals Intervention Goals 1. Intake will improve to consistently >50% of meals 2. Pt will maintain regular bowel pattern without constipation/diarrhea 3. Intake will be adequate to preserve lean body mass without unintended wt loss Social Work: Goals Discharge Plan return home with home care svs and family support Potential for Family Training pt's is involved and supportive Anticipated Discharge Home Destination Discharge With home care svs and family support Care Plan: Care Plan ADL's - Improve/Maintain Start: 06/27/18 16:55 Freq: DAILY Status: Active Target: Protocol: Activity Type Activity Date Activity User E-Sign Co-Sign Detail Recorded Client Recorded Date Recorded By Document 07/01/18 12:12 [id number] 07/01/18 12:13 [id number] 07/01/18 12:12 PMRU Outcome: ADL's/ADL Transfers Orders/Interventions Occupational Therapy Evaluation & Treatment Communication Tool in Patient Room Device Yes Patient to receive OT 5x/wk for 60-120 Therex min/day Self Care Management Group Therapy UE/LE ADL's with Assist Yes: Lior ADL Transfers with Assist Yes: Lior Toileting: Transfers,Clothing Management Yes: Lior ,Hygeine w/Assist Progression Toward Outcome/Goals Progressing Outcome/Goals Met Pt participated well in treatment session, LE dressing currently limited by wound VAC placement and LE edema. Coping/Psych-Improve/Maintain Start: 06/27/18 16:55 Freq: QSHIFT Status: Active Target: Protocol: Activity Type Activity Date Activity User E-Sign Co-Sign Detail Recorded Client Recorded Date Recorded By Document 07/05/18 08:15 [id number] [id number] 07/05/18 11:24 [id number] 07/05/18 08:15 PMRU Outcome: Coping/Psychosocial Coping Outcome/Goals Verbalization of Acceptance of Rehab Admit Verbalization of Sense of Control Over Health Status Utilization of Appropriate Problem Solving Techniques Willingness to Participate in Treatment Plan and Basic Needs Utilization of Available Support Systems Psychosocial Outcome/Goals Maintain/ Improve Emotional Health Demonstrates Knowledge of Healthy Coping Mechanisms Available Cooperate/ Participate in Plan Progression Toward Outcome/Goals - Progressing Coping Progression Toward Outcome/Goals - Progressing Psychosocial DVT Prophylaxis- Improve/Maintain Start: 06/27/18 16:55 Freq: QSHIFT Status: Active Target: Protocol: Activity Type Activity Date Activity User E-Sign Co-Sign Detail Recorded Client Recorded Date Recorded By Document 07/05/18 08:15 [id number] 07/05/18 11:24 [id number] 07/05/18 08:15 PMRU Outcome: DVT Prophylaxis Outcome/Goals Remains Free of DVT Complies with DVT Prophylaxis /Treatment Demonstrates Knowledge of DVT Prevention/ Treatment Other Outcome/Goals gabby wrap to l, stockinette to r Progression Toward Outcome/Goals Progressing Discharge Planning - Improve/Maintain Start: 06/27/18 16:55 Freq: DAILY Status: Active Target: Protocol: Activity Type Activity Date Activity User E-Sign Co-Sign Detail Recorded Client Recorded Date Recorded By Document 07/05/18 00:00 [id number] 07/05/18 02:24 [id number] 07/05/18 00:00 PMRU Outcome: Discharge Planning Update Patient Family No Outcome/Goals Demonstrates Understanding of Discharge Plan Progression Toward Outcome/Goals Progressing Pain/Comfort- Improve/Maintain Start: 06/27/18 16:55 Freq: QSHIFT Status: Active Target: Protocol: Activity Type Activity Date Activity User E-Sign Co-Sign Detail Recorded Client Recorded Date Recorded By Document 07/05/18 08:15 [id number] 07/05/18 11:24 [id number] 07/05/18 08:15 PMRU Outcome: Pain/Comfort Outcome/Goals Demonstrates Knowledge and Use of Available Comfort Measures Achieves Acceptable Comfort/Pain Level as Determined by Patient/Condit Maintain Comfort Level Allowing Patient to Fully Participate in Rehab Progression Toward Outcome/Goals Progressing Outcome/Goals Met Comment norco 2 tabs given Skin- Improve/Maintain Start: 06/27/18 16:55 Freq: QSHIFT Status: Active Target: Protocol: Activity Type Activity Date Activity User E-Sign Co-Sign Detail Recorded Client Recorded Date Recorded By Document 07/05/18 08:15 [id number] 07/05/18 11:24 [email or web address] 07/05/18 08:15 PMRU Outcome: Skin Skin Risk Level Medium Skin Orders Dressing Change Turn/Position q2hr While in Bed Outcome/Goals Maintain/ Improve Skin Intergrity Surgical Incisions Healing Progression Toward Outcome/Goals Progressing Outcome/Goals Met Comment vac in place Medicine Note: Length of Stay: 8 days Anticipated Discharge Destination: Home Tentative Discharge Date: 07/13/18 Discharged to: Home
[2018-07-05] MEDS: BuPROPion XL* 150 MG TAB.XL PO SCH (14:38)
[2018-07-05] MEDS: Mometasone 220 MCG MDI INH SCH (18:12)
--- NOTE | 2018-07-05 19:39 | PN ---
Progress Note Date of Service: 07/05/18 Note: SUGEY Thao MAGENANTONIO was visited. Therapy notes read and reviewed. Wound examined as woundvac was being changed. Tissue appears red and healthy and borders of wound bed look better. He was discussed in interdisciplinary team rounds and he is doing better. Current Medications: Active Medications Generic Name Dose Route Start Last Admin Trade Name Freq PRN Reason Stop Dose Admin Acetaminophen 650 mg 06/27/18 15:08 07/04/18 13:52 Tylenol Tab* PO 650 mg Q6H PRN Administration FEVER/PAIN Hydrocodone Bitart/Acetaminophen 1 tab 06/28/18 07:04 07/01/18 20:27 [place] 5-325 Tab* PO 1 tab Q4H PRN Administration PAIN Hydrocodone Bitart/Acetaminophen 2 tab 06/29/18 13:16 07/05/18 14:40 [place] 5-325 Tab* PO 2 tab Q4H PRN Administration PAIN - SEVERE Albuterol 2 puff 06/27/18 15:23 Ventolin Hfa Inhaler* INH Q6H PRN SOB/WHEEZING Alprazolam 0.5 mg 06/27/18 15:20 07/04/18 21:19 Xanax Tab* PO 0.5 mg BID PRN Administration ANXIETY Aspirin 81 mg 06/27/18 21:00 07/04/18 21:17 Aspirin Ec Tab* PO 81 mg 2100 EVELIO Administration Bupropion HCl 150 mg 06/28/18 09:00 07/05/18 14:38 Wellbutrin Xl * PO 150 mg DAILY EVELIO Administration Protocol Carbidopa/Levodopa 1 tab 06/27/18 15:29 07/04/18 13:52 Sinemet 25/100 Tab(*) PO 1 tab BID PRN Administration Restless Legs Clopidogrel Bisulfate 75 mg 06/28/18 09:00 07/05/18 09:34 Plavix Tab* PO 75 mg DAILY EVELIO Administration Docusate Sodium 100 mg 06/27/18 21:00 07/05/18 09:34 Colace Cap* PO 100 mg BID EVELIO Administration Enalapril Maleate 5 mg 06/27/18 18:00 07/05/18 18:12 Vasotec Tab* PO 5 mg 1800 EVELIO Administration Enalapril Maleate 10 mg 06/28/18 09:00 07/05/18 09:34 Vasotec Tab* PO 10 mg 0900 EVELIO Administration Heparin Sodium (Porcine) 5,000 units 06/27/18 22:00 07/05/18 14:42 Heparin Vial(*) SUBCUT 5,000 units Q8HR EVELIO Administration Hydroxyzine HCl 25 mg 06/27/18 15:27 07/03/18 05:32 Atarax Tab* PO 25 mg Q6H PRN Administration itch Levothyroxine Sodium 150 mcg 06/28/18 06:00 07/05/18 06:08 Synthroid Tab* PO 150 mcg DAILY@0600 EVELIO Administration Magnesium Hydroxide 30 ml 07/02/18 19:37 Milk Of Magnesia Liq* PO Q6H PRN CONSTIPATION Metoprolol Succinate 25 mg 06/28/18 09:00 07/05/18 09:34 Toprol Xl Tab* PO 25 mg DAILY EVELIO Administration Mometasone Furoate 2 puff 06/27/18 18:00 07/05/18 18:12 Asmanex 220 Mcg Mdi * INH 2 puff QPM EVELIO Administration Ondansetron HCl 4 mg 06/29/18 13:16 07/05/18 09:33 Zofran Odt Tab* PO 4 mg Q6H PRN Administration NAUSEA Pantoprazole Sodium 40 mg 06/27/18 21:00 07/04/18 21:18 Protonix Tab (Nf) PO 40 mg 2100 EVELIO Administration Polyethylene Glycol/Electrolytes 17 gm 07/02/18 19:38 Miralax* PO DAILY PRN CONSTIPATION Senna 2 tab 06/27/18 15:08 06/30/18 21:55 Senokot Tab* PO 2 tab BEDTIME PRN Administration CONSTIPATION Torsemide 10 mg 06/28/18 09:00 07/05/18 09:34 Demadex* PO 10 mg DAILY EVELIO Administration Vital Signs: Vital Signs Temp Pulse Resp BP Pulse Ox 98.4 F 63 16 121/67 100 07/05/18 16:18 07/05/18 16:18 07/05/18 16:18 07/05/18 16:18 07/05/18 16:18 Lab Results: Laboratory Results - last 24 hr 07/05/18 07/05/18 06:06 06:07 WBC 5.8 RBC 2.60 L Hgb 8.6 L Hct 26 L MCV 98 H MCH 33 H MCHC 34 RDW 16 H Plt Count 208 MPV 7.0 L Neut % (Auto) 63.4 Lymph % (Auto) 14.6 [place] % (Auto) 11.1 Eos % (Auto) 9.5 Baso % (Auto) 1.4 Absolute Neuts (auto) 3.7 Absolute Lymphs (auto) 0.8 L Absolute Monos (auto) 0.6 Absolute Eos (auto) 0.6 Absolute Basos (auto) 0.1 Absolute Nucleated RBC 0 Nucleated RBC % 0 Sodium 139 Potassium 4.0 Chloride 110 Carbon Dioxide 25 Anion Gap 4 BUN 22 Creatinine 1.22 H Est GFR ( Amer) 68.6 Est GFR (Non-Af Amer) 56.7 BUN/Creatinine Ratio 18.0 Glucose 87 Calcium 8.5 L Total Bilirubin 0.80 AST 15 ALT 10 Alkaline Phosphatase 64 Total Protein 5.2 L Albumin 2.8 L Globulin 2.4 Albumin/Globulin Ratio 1.2 Exam: GENERAL: Alert, oriented LUNGS: Clear bilaterally HEART: regular rhythm ABDOMEN: Soft, +BS EXTREMITIES: 2+ edema, both feet. Dorsalis Pedis pulse present in right foot. NEUROLOGIC: Able to move a 4 extremities. Right leg a little weak, may have decreased sensation on sole of foot. Assessment/Plan: 1. Critical limb Ischemia, right foot: PT/OT. WBAT. Plavix/ASA, S/P bypass. Follow up with surgeon 07/09/18 2. Atrial Fibrillation: Pacemaker. Toprol XL 3. Edema: Chava Wrap, Demadex. 4. GERD/GI Bleed: PPI 5. DVT Prophylaxis: Heparin 6. Advanced Directives: Full Code 7. Fasciotomy: Wound VAC 8. Anxiety/Panic Attacks: Xanax 07/05/18 19:39
[2018-07-05] MEDS: Aspirin EC TAB* 81 MG TAB.EC PO SCH (21:46)
[2018-07-05] MEDS: ALPRAZolam TAB* 0.5 MG PO PRN (21:46)
[2018-07-05] MEDS: CMC:Pantoprazole TAB (NF) 40 MG TAB PO SCH (21:46)
[2018-07-06] MEDS: HYDROcodone/ACETAMIN 5-325 MG* 1 TAB PO PRN ×4 (03:05→22:06)
[2018-07-06] MEDS: Carbidopa/Levodop 25/100 MG TAB(*) PO PRN ×2 (03:09→22:06)
[2018-07-06] MEDS: Levothyroxine TAB* 150 MCG TAB PO SCH (06:34)
[2018-07-06] MEDS: Heparin VIAL(*) 5000 UNITS/ML VIAL (FIVE THOUSAND) SUBCUT SCH ×3 (06:35→22:03)
[2018-07-06] MEDS: BuPROPion XL* 150 MG TAB.XL PO SCH (08:47)
[2018-07-06] MEDS: Metoprolol Succinate XL TAB* 25 MG PO SCH (08:47)
[2018-07-06] MEDS: Clopidogrel TAB* 75 MG PO SCH (08:47)
[2018-07-06] MEDS: Docusate CAP* 100 MG PO SCH ×2 (08:47→21:26)
[2018-07-06] MEDS: Enalapril TAB* 5 MG PO SCH ×2 (08:48→17:54)
[2018-07-06] MEDS: Torsemide TAB* 20 MG PO SCH (08:50)
[2018-07-06] MEDS: Ondansetron ODT TAB* 4 MG PO PRN ×2 (09:14→17:22)
--- NOTE | 2018-07-06 11:31 | PN ---
Progress Note Date of Service: 07/06/18 Note: SUGEY Thao AARONJOSÉ LUIS was visited. Nursing and therapy notes read and reviewed. No chest pain, shortness of breath or abdominal pain. Nauseated this morning, but better now after zofran. Woke up with some pain but better with meds. Current Medications: Active Medications Generic Name Dose Route Start Last Admin Trade Name Freq PRN Reason Stop Dose Admin Acetaminophen 650 mg 06/27/18 15:08 07/04/18 13:52 Tylenol Tab* PO 650 mg Q6H PRN Administration FEVER/PAIN Hydrocodone Bitart/Acetaminophen 1 tab 06/28/18 07:04 07/01/18 20:27 [place] 5-325 Tab* PO 1 tab Q4H PRN Administration PAIN Hydrocodone Bitart/Acetaminophen 2 tab 06/29/18 13:16 07/06/18 08:51 [place] 5-325 Tab* PO 2 tab Q4H PRN Administration PAIN - SEVERE Albuterol 2 puff 06/27/18 15:23 Ventolin Hfa Inhaler* INH Q6H PRN SOB/WHEEZING Alprazolam 0.5 mg 06/27/18 15:20 07/05/18 21:46 Xanax Tab* PO 0.5 mg BID PRN Administration ANXIETY Aspirin 81 mg 06/27/18 21:00 07/05/18 21:46 Aspirin Ec Tab* PO 81 mg 2100 EVELIO Administration Bupropion HCl 150 mg 06/28/18 09:00 07/06/18 08:47 Wellbutrin Xl * PO 150 mg DAILY EVELIO Administration Protocol Carbidopa/Levodopa 1 tab 06/27/18 15:29 07/06/18 03:09 Sinemet 25/100 Tab(*) PO 1 tab BID PRN Administration Restless Legs Clopidogrel Bisulfate 75 mg 06/28/18 09:00 07/06/18 08:47 Plavix Tab* PO 75 mg DAILY EVELIO Administration Docusate Sodium 100 mg 06/27/18 21:00 07/06/18 08:47 Colace Cap* PO 100 mg BID EVELIO Administration Enalapril Maleate 5 mg 06/27/18 18:00 07/05/18 18:12 Vasotec Tab* PO 5 mg 1800 EVELIO Administration Enalapril Maleate 10 mg 06/28/18 09:00 07/06/18 08:48 Vasotec Tab* PO 10 mg 0900 EVELIO Administration Heparin Sodium (Porcine) 5,000 units 06/27/18 22:00 07/06/18 06:35 Heparin Vial(*) SUBCUT 5,000 units Q8HR EVELIO Administration Hydroxyzine HCl 25 mg 06/27/18 15:27 07/03/18 05:32 Atarax Tab* PO 25 mg Q6H PRN Administration itch Levothyroxine Sodium 150 mcg 06/28/18 06:00 07/06/18 06:34 Synthroid Tab* PO 150 mcg DAILY@0600 EVELIO Administration Magnesium Hydroxide 30 ml 07/02/18 19:37 Milk Of Magnesia Liq* PO Q6H PRN CONSTIPATION Metoprolol Succinate 25 mg 06/28/18 09:00 07/06/18 08:47 Toprol Xl Tab* PO 25 mg DAILY EVELIO Administration Mometasone Furoate 2 puff 06/27/18 18:00 07/05/18 18:12 Asmanex 220 Mcg Mdi * INH 2 puff QPM EVELIO Administration Ondansetron HCl 4 mg 06/29/18 13:16 07/06/18 09:14 Zofran Odt Tab* PO 4 mg Q6H PRN Administration NAUSEA Pantoprazole Sodium 40 mg 06/27/18 21:00 07/05/18 21:46 Protonix Tab (Nf) PO 40 mg 2100 EVELIO Administration Polyethylene Glycol/Electrolytes 17 gm 07/02/18 19:38 Miralax* PO DAILY PRN CONSTIPATION Senna 2 tab 06/27/18 15:08 06/30/18 21:55 Senokot Tab* PO 2 tab BEDTIME PRN Administration CONSTIPATION Torsemide 10 mg 06/28/18 09:00 07/06/18 08:50 Demadex* PO 10 mg DAILY EVELIO Administration Vital Signs: Vital Signs Temp Pulse Resp BP Pulse Ox 98.3 F 59 18 112/66 98 07/06/18 06:34 07/06/18 06:34 07/06/18 10:55 07/06/18 06:34 07/06/18 06:34 Exam: GENERAL: Alert and appropriate LUNGS: Clear to auscultation bilaterally HEART: regular rate and rhythm ABDOMEN: Soft, +BS, non-tender, non-distended EXTREMITIES: 2+ edema, both feet and legs. Dorsalis Pedis pulse present in right foot. NEUROLOGIC: Able to move a 4 extremities. Right leg a little weak, may have decreased sensation on sole of foot. Assessment/Plan: 1. Critical limb Ischemia, right foot: PT/OT. WBAT. Plavix/ASA, S/P bypass. Follow up with surgeon 07/09/18 2. Atrial Fibrillation: Pacemaker. Toprol XL 3. Edema: Chava Wrap, Demadex. 4. GERD/GI Bleed: PPI 5. DVT Prophylaxis: Heparin 6. Advanced Directives: Full Code 7. Fasciotomy: Wound VAC 8. Anxiety/Panic Attacks: Xanax prn 07/06/18 11:30
[2018-07-06] MEDS: Mometasone 220 MCG MDI INH SCH (19:38)
[2018-07-06] MEDS: CMC:Pantoprazole TAB (NF) 40 MG TAB PO SCH (21:26)
[2018-07-06] MEDS: Aspirin EC TAB* 81 MG TAB.EC PO SCH (21:26)
[2018-07-06] MEDS: hydrOXYzine HCL TAB* 25 MG PO PRN (22:06)
[2018-07-07] MEDS: Acetaminophen TAB* 325 MG PO PRN (00:14)
[2018-07-07] MEDS: ALPRAZolam TAB* 0.5 MG PO PRN (00:14)
[2018-07-07] MEDS: Heparin VIAL(*) 5000 UNITS/ML VIAL (FIVE THOUSAND) SUBCUT SCH ×3 (05:52→21:11)
[2018-07-07] MEDS: Levothyroxine TAB* 150 MCG TAB PO SCH (05:52)
[2018-07-07] MEDS: HYDROcodone/ACETAMIN 5-325 MG* 1 TAB PO PRN ×5 (05:55→23:04)
[2018-07-07] MEDS: Ondansetron ODT TAB* 4 MG PO PRN (08:14)
[2018-07-07] MEDS: Torsemide TAB* 20 MG PO SCH (10:06)
[2018-07-07] MEDS: Docusate CAP* 100 MG PO SCH ×2 (10:06→21:11)
[2018-07-07] MEDS: BuPROPion XL* 150 MG TAB.XL PO SCH (10:06)
[2018-07-07] MEDS: Enalapril TAB* 5 MG PO SCH ×2 (10:06→18:10)
[2018-07-07] MEDS: Clopidogrel TAB* 75 MG PO SCH (10:06)
[2018-07-07] MEDS: Metoprolol Succinate XL TAB* 25 MG PO SCH (10:06)
[2018-07-07] MEDS ORDERED: Torsemide TAB* 20 MG PO ONE (13:01)
[2018-07-07] MEDS: Mometasone 220 MCG MDI INH SCH (18:10)
[2018-07-07] MEDS: CMC:Pantoprazole TAB (NF) 40 MG TAB PO SCH (21:11)
[2018-07-07] MEDS: hydrOXYzine HCL TAB* 25 MG PO PRN (21:11)
[2018-07-07] MEDS: Aspirin EC TAB* 81 MG TAB.EC PO SCH (21:11)
--- NOTE | 2018-07-07 21:14 | PN ---
Progress Note Date of Service: 07/07/18 Note: SUGEY Thao ARABELLA was visited. Therapy notes read and reviewed. His wound vac was stopped today. We are trying other healing techniques. He will see his vascular surgeon at the end of the week. Current Medications: Active Medications Generic Name Dose Route Start Last Admin Trade Name Freq PRN Reason Stop Dose Admin Acetaminophen 650 mg 06/27/18 15:08 07/07/18 00:14 Tylenol Tab* PO 650 mg Q6H PRN Administration FEVER/PAIN Hydrocodone Bitart/Acetaminophen 1 tab 06/28/18 07:04 07/01/18 20:27 [place] 5-325 Tab* PO 1 tab Q4H PRN Administration PAIN Hydrocodone Bitart/Acetaminophen 2 tab 06/29/18 13:16 07/07/18 18:39 [place] 5-325 Tab* PO 2 tab Q4H PRN Administration PAIN - SEVERE Albuterol 2 puff 06/27/18 15:23 Ventolin Hfa Inhaler* INH Q6H PRN SOB/WHEEZING Alprazolam 0.5 mg 06/27/18 15:20 07/07/18 00:14 Xanax Tab* PO 0.5 mg BID PRN Administration ANXIETY Aspirin 81 mg 06/27/18 21:00 07/06/18 21:26 Aspirin Ec Tab* PO 81 mg 2100 EVELIO Administration Bupropion HCl 150 mg 06/28/18 09:00 07/07/18 10:06 Wellbutrin Xl * PO 150 mg DAILY EVELIO Administration Protocol Carbidopa/Levodopa 1 tab 06/27/18 15:29 07/06/18 22:06 Sinemet 25/100 Tab(*) PO 1 tab BID PRN Administration Restless Legs Clopidogrel Bisulfate 75 mg 06/28/18 09:00 07/07/18 10:06 Plavix Tab* PO 75 mg DAILY EVELIO Administration Docusate Sodium 100 mg 06/27/18 21:00 07/07/18 10:06 Colace Cap* PO 100 mg BID EVELIO Administration Enalapril Maleate 5 mg 06/27/18 18:00 07/07/18 18:10 Vasotec Tab* PO 5 mg 1800 EVELIO Administration Enalapril Maleate 10 mg 06/28/18 09:00 07/07/18 10:06 Vasotec Tab* PO 10 mg 0900 EVELIO Administration Heparin Sodium (Porcine) 5,000 units 06/27/18 22:00 07/07/18 14:32 Heparin Vial(*) SUBCUT 5,000 units Q8HR EVELIO Administration Hydroxyzine HCl 25 mg 06/27/18 15:27 07/06/18 22:06 Atarax Tab* PO 25 mg Q6H PRN Administration itch Levothyroxine Sodium 150 mcg 06/28/18 06:00 07/07/18 05:52 Synthroid Tab* PO 150 mcg DAILY@0600 [facility] Administration Magnesium Hydroxide 30 ml 07/02/18 19:37 Milk Of Magnesia Liq* PO Q6H PRN CONSTIPATION Metoprolol Succinate 25 mg 06/28/18 09:00 07/07/18 10:06 Toprol Xl Tab* PO 25 mg DAILY [facility] Administration Mometasone Furoate 2 puff 06/27/18 18:00 07/07/18 18:10 Asmanex 220 Mcg Mdi * INH 2 puff QPM EVELIO Administration Ondansetron HCl 4 mg 06/29/18 13:16 07/07/18 08:14 Zofran Odt Tab* PO 4 mg Q6H PRN Administration NAUSEA Pantoprazole Sodium 40 mg 06/27/18 21:00 07/06/18 21:26 Protonix Tab (Nf) PO 40 mg 2100 [facility] Administration Polyethylene Glycol/Electrolytes 17 gm 07/02/18 19:38 Miralax* PO DAILY PRN CONSTIPATION Senna 2 tab 06/27/18 15:08 06/30/18 21:55 Senokot Tab* PO 2 tab BEDTIME PRN Administration CONSTIPATION Torsemide 20 mg 07/08/18 09:00 Demadex* PO DAILY [facility] Vital Signs: Vital Signs Temp Pulse Resp BP Pulse Ox 97.7 F 68 18 128/68 100 07/07/18 16:29 07/07/18 16:29 07/07/18 19:36 07/07/18 16:29 07/07/18 16:29 Exam: GENERAL: Alert and appropriate LUNGS: Clear to auscultation bilaterally HEART: regular rate and rhythm ABDOMEN: Soft, +BS, non-tender, non-distended EXTREMITIES: 2+ edema, both feet and legs. Dorsalis Pedis pulse present in right foot. NEUROLOGIC: Able to move a 4 extremities. Right leg a little weak, may have decreased sensation on sole of foot. Assessment/Plan: 1. Critical limb Ischemia, right foot: PT/OT. WBAT. Plavix/ASA, S/P bypass. Follow up with surgeon 07/09/18 2. Atrial Fibrillation: Pacemaker. Toprol XL 3. Edema: Chava Wrap, Demadex. 4. GERD/GI Bleed: PPI 5. DVT Prophylaxis: Heparin 6. Advanced Directives: Full Code 7. Fasciotomy: Wound VAC 8. Anxiety/Panic Attacks: Xanax prn 07/07/18 21:14
[2018-07-08] MEDS: Acetaminophen TAB* 325 MG PO PRN (01:40)
[2018-07-08] MEDS: Levothyroxine TAB* 150 MCG TAB PO SCH (06:11)
[2018-07-08] MEDS: Heparin VIAL(*) 5000 UNITS/ML VIAL (FIVE THOUSAND) SUBCUT SCH ×3 (06:11→21:31)
[2018-07-08] MEDS: Ondansetron ODT TAB* 4 MG PO PRN ×2 (08:07→14:44)
[2018-07-08] MEDS: BuPROPion XL* 150 MG TAB.XL PO SCH (09:26)
[2018-07-08] MEDS: Metoprolol Succinate XL TAB* 25 MG PO SCH (09:26)
[2018-07-08] MEDS: Clopidogrel TAB* 75 MG PO SCH (09:26)
[2018-07-08] MEDS: Enalapril TAB* 5 MG PO SCH ×2 (09:26→17:49)
[2018-07-08] MEDS: Docusate CAP* 100 MG PO SCH ×2 (09:26→21:31)
[2018-07-08] MEDS: Torsemide TAB* 20 MG PO SCH (09:26)
[2018-07-08] MEDS: HYDROcodone/ACETAMIN 5-325 MG* 1 TAB PO PRN ×4 (09:27→23:29)
[2018-07-08] MEDS: ALPRAZolam TAB* 0.5 MG PO PRN (12:59)
[2018-07-08] MEDS: Mometasone 220 MCG MDI INH SCH (17:49)
[2018-07-08] MEDS: Aspirin EC TAB* 81 MG TAB.EC PO SCH (21:30)
[2018-07-08] MEDS: hydrOXYzine HCL TAB* 25 MG PO PRN (21:30)
[2018-07-08] MEDS: CMC:Pantoprazole TAB (NF) 40 MG TAB PO SCH (21:31)
--- NOTE | 2018-07-08 22:38 | PN ---
Progress Note Date of Service: 07/08/18 Note: SUGEY Thao MAGENANTONIO was visited. Therapy notes read and reviewed. He will see his vascular surgeon in follow up tomorrow. His wounds are slowly progressing, though margins are tenuous. Current Medications: Active Medications Generic Name Dose Route Start Last Admin Trade Name Freq PRN Reason Stop Dose Admin Acetaminophen 650 mg 06/27/18 15:08 07/08/18 01:40 Tylenol Tab* PO 650 mg Q6H PRN Administration FEVER/PAIN Hydrocodone Bitart/Acetaminophen 1 tab 06/28/18 07:04 07/01/18 20:27 Bandy 5-325 Tab* PO 1 tab Q4H PRN Administration PAIN Hydrocodone Bitart/Acetaminophen 2 tab 06/29/18 13:16 07/08/18 18:44 Bandy 5-325 Tab* PO 2 tab Q4H PRN Administration PAIN - SEVERE Albuterol 2 puff 06/27/18 15:23 Ventolin Hfa Inhaler* INH Q6H PRN SOB/WHEEZING Alprazolam 0.5 mg 07/09/18 09:00 Xanax Tab* PO BID EVELIO Aspirin 81 mg 06/27/18 21:00 07/08/18 21:30 Aspirin Ec Tab* PO 81 mg 2100 EVELIO Administration Bupropion HCl 150 mg 06/28/18 09:00 07/08/18 09:26 Wellbutrin Xl * PO 150 mg DAILY EVELIO Administration Protocol Carbidopa/Levodopa 1 tab 06/27/18 15:29 07/06/18 22:06 Sinemet 25/100 Tab(*) PO 1 tab BID PRN Administration Restless Legs Clopidogrel Bisulfate 75 mg 06/28/18 09:00 07/08/18 09:26 Plavix Tab* PO 75 mg DAILY EVELIO Administration Docusate Sodium 100 mg 06/27/18 21:00 07/08/18 21:31 Colace Cap* PO 100 mg BID EVELIO Administration Enalapril Maleate 5 mg 06/27/18 18:00 07/08/18 17:49 Vasotec Tab* PO 5 mg 1800 EVELIO Administration Enalapril Maleate 10 mg 06/28/18 09:00 07/08/18 09:26 Vasotec Tab* PO 10 mg 0900 EVELIO Administration Heparin Sodium (Porcine) 5,000 units 06/27/18 22:00 07/08/18 21:31 Heparin Vial(*) SUBCUT 5,000 units Q8HR EVELIO Administration Hydroxyzine HCl 25 mg 06/27/18 15:27 07/08/18 21:30 Atarax Tab* PO 25 mg Q6H PRN Administration itch Levothyroxine Sodium 150 mcg 06/28/18 06:00 07/08/18 06:11 Synthroid Tab* PO 150 mcg DAILY@0600 EVELIO Administration Magnesium Hydroxide 30 ml 07/02/18 19:37 Milk Of Magnesia Liq* PO Q6H PRN CONSTIPATION Metoprolol Succinate 25 mg 06/28/18 09:00 07/08/18 09:26 Toprol Xl Tab* PO 25 mg DAILY EVELIO Administration Mometasone Furoate 2 puff 06/27/18 18:00 07/08/18 17:49 Asmanex 220 Mcg Mdi * INH 2 puff QPM EVELIO Administration Ondansetron HCl 4 mg 06/29/18 13:16 07/08/18 14:44 Zofran Odt Tab* PO 4 mg Q6H PRN Administration NAUSEA Pantoprazole Sodium 40 mg 06/27/18 21:00 07/08/18 21:31 Protonix Tab (Nf) PO 40 mg 2100 EVELIO Administration Polyethylene Glycol/Electrolytes 17 gm 07/02/18 19:38 Miralax* PO DAILY PRN CONSTIPATION Senna 2 tab 06/27/18 15:08 06/30/18 21:55 Senokot Tab* PO 2 tab BEDTIME PRN Administration CONSTIPATION Torsemide 20 mg 07/08/18 09:00 07/08/18 09:26 Demadex* PO 20 mg DAILY EVELIO Administration Vital Signs: Vital Signs Temp Pulse Resp BP Pulse Ox 98.1 F 62 14 113/63 99 07/08/18 15:52 07/08/18 15:52 07/08/18 18:44 07/08/18 15:52 07/08/18 17:40 Exam: GENERAL: Alert and appropriate LUNGS: Clear to auscultation bilaterally HEART: regular rate and rhythm ABDOMEN: Soft, +BS, non-tender, non-distended EXTREMITIES: 2+ edema, both feet and legs. Dorsalis Pedis pulse present in right foot. NEUROLOGIC: Able to move a 4 extremities. Right leg a little weak, may have decreased sensation on sole of foot. Assessment/Plan: 1. Critical limb Ischemia, right foot: PT/OT. WBAT. Plavix/ASA, S/P bypass. Follow up with surgeon 07/09/18 2. Atrial Fibrillation: Pacemaker. Toprol XL 3. Edema: Chava Wrap, Demadex. 4. GERD/GI Bleed: PPI 5. DVT Prophylaxis: Heparin 6. Advanced Directives: Full Code 7. Fasciotomy: Alginate dressing, follow up with vascular surgeon 8. Anxiety/Panic Attacks: Xanax BID 07/08/18 22:39
[2018-07-09] MEDS: Acetaminophen TAB* 325 MG PO PRN ×2 (01:36→22:56)
[2018-07-09] MEDS: Levothyroxine TAB* 150 MCG TAB PO SCH (05:42)
[2018-07-09] MEDS: Ondansetron ODT TAB* 4 MG PO PRN (05:42)
[2018-07-09] MEDS: Heparin VIAL(*) 5000 UNITS/ML VIAL (FIVE THOUSAND) SUBCUT SCH ×3 (05:43→21:31)
[2018-07-09] MEDS: ALPRAZolam TAB* 0.5 MG PO SCH ×2 (07:31→21:29)
[2018-07-09] MEDS: HYDROcodone/ACETAMIN 5-325 MG* 1 TAB PO PRN ×2 (07:31→21:34)
[2018-07-09] MEDS: Clopidogrel TAB* 75 MG PO SCH (07:31)
[2018-07-09] MEDS: Torsemide TAB* 20 MG PO SCH (07:31)
[2018-07-09] MEDS: BuPROPion XL* 150 MG TAB.XL PO SCH (07:31)
[2018-07-09] MEDS: Metoprolol Succinate XL TAB* 25 MG PO SCH (07:31)
[2018-07-09] MEDS: Enalapril TAB* 5 MG PO SCH ×2 (07:32→18:53)
[2018-07-09] MEDS: Docusate CAP* 100 MG PO SCH ×2 (09:12→21:30)
--- NOTE | 2018-07-09 10:01 | PN ---
Progress Note Date of Service: 07/09/18 Note: SUGEY Thao AARONJOSÉ LUIS was visited. Physician, nursing and therapy notes read and reviewed. No chest pain, shortness of breath or abdominal pain. Had some pain in right leg last night, but better now. Has appt with vascular surgeon today. Current Medications: Active Medications Generic Name Dose Route Start Last Admin Trade Name Freq PRN Reason Stop Dose Admin Acetaminophen 650 mg 06/27/18 15:08 07/09/18 01:36 Tylenol Tab* PO 650 mg Q6H PRN Administration FEVER/PAIN Hydrocodone Bitart/Acetaminophen 1 tab 06/28/18 07:04 07/01/18 20:27 Erin 5-325 Tab* PO 1 tab Q4H PRN Administration PAIN Hydrocodone Bitart/Acetaminophen 2 tab 06/29/18 13:16 07/09/18 07:31 Erin 5-325 Tab* PO 2 tab Q4H PRN Administration PAIN - SEVERE Albuterol 2 puff 06/27/18 15:23 Ventolin Hfa Inhaler* INH Q6H PRN SOB/WHEEZING Alprazolam 0.5 mg 07/09/18 09:00 07/09/18 07:31 Xanax Tab* PO 0.5 mg BID EVELIO Administration Aspirin 81 mg 06/27/18 21:00 07/08/18 21:30 Aspirin Ec Tab* PO 81 mg 2100 EVELIO Administration Bupropion HCl 150 mg 06/28/18 09:00 07/09/18 07:31 Wellbutrin Xl * PO 150 mg DAILY EVELIO Administration Protocol Carbidopa/Levodopa 1 tab 06/27/18 15:29 07/06/18 22:06 Sinemet 25/100 Tab(*) PO 1 tab BID PRN Administration Restless Legs Clopidogrel Bisulfate 75 mg 06/28/18 09:00 07/09/18 07:31 Plavix Tab* PO 75 mg DAILY EVELIO Administration Docusate Sodium 100 mg 06/27/18 21:00 07/09/18 09:12 Colace Cap* PO Not Given BID EVELIO Enalapril Maleate 5 mg 06/27/18 18:00 07/08/18 17:49 Vasotec Tab* PO 5 mg 1800 EVELIO Administration Enalapril Maleate 10 mg 06/28/18 09:00 07/09/18 07:32 Vasotec Tab* PO 10 mg 0900 EVELIO Administration Heparin Sodium (Porcine) 5,000 units 06/27/18 22:00 07/09/18 05:43 Heparin Vial(*) SUBCUT 5,000 units Q8HR EVELIO Administration Hydroxyzine HCl 25 mg 06/27/18 15:27 07/08/18 21:30 Atarax Tab* PO 25 mg Q6H PRN Administration itch Levothyroxine Sodium 150 mcg 06/28/18 06:00 07/09/18 05:42 Synthroid Tab* PO 150 mcg DAILY@0600 EVELIO Administration Magnesium Hydroxide 30 ml 07/02/18 19:37 Milk Of Magnesia Liq* PO Q6H PRN CONSTIPATION Metoprolol Succinate 25 mg 06/28/18 09:00 07/09/18 07:31 Toprol Xl Tab* PO 25 mg DAILY EVELIO Administration Mometasone Furoate 2 puff 06/27/18 18:00 07/08/18 17:49 Asmanex 220 Mcg Mdi * INH 2 puff QPM EVELIO Administration Ondansetron HCl 4 mg 06/29/18 13:16 07/09/18 05:42 Zofran Odt Tab* PO 4 mg Q6H PRN Administration NAUSEA Pantoprazole Sodium 40 mg 06/27/18 21:00 07/08/18 21:31 Protonix Tab (Nf) PO 40 mg 2100 EVELIO Administration Polyethylene Glycol/Electrolytes 17 gm 07/02/18 19:38 Miralax* PO DAILY PRN CONSTIPATION Senna 2 tab 06/27/18 15:08 06/30/18 21:55 Senokot Tab* PO 2 tab BEDTIME PRN Administration CONSTIPATION Torsemide 20 mg 07/08/18 09:00 07/09/18 07:31 Demadex* PO 20 mg DAILY EVELIO Administration Vital Signs: Vital Signs Temp Pulse Resp BP Pulse Ox 98.1 F 62 18 113/63 99 07/08/18 15:52 07/08/18 15:52 07/09/18 07:31 07/08/18 15:52 07/08/18 17:40 Exam: GENERAL: Alert and appropriate LUNGS: Clear to auscultation bilaterally HEART: regular rate and rhythm ABDOMEN: Soft, +BS, non-tender, non-distended EXTREMITIES: 2+ edema, both feet and legs. Dorsalis Pedis pulse present in right foot. NEUROLOGIC: Able to move a 4 extremities. Right leg a little weak, may have decreased sensation on sole of foot. Assessment/Plan: 1. Critical limb Ischemia, right foot: PT/OT. WBAT. Plavix/ASA, S/P bypass. Follow up with surgeon today at [place]. 2. Atrial Fibrillation: Pacemaker. Toprol XL 3. Edema: Chava Wrap, Demadex. 4. GERD/GI Bleed: PPI 5. DVT Prophylaxis: Heparin 6. Advanced Directives: Full Code 7. Fasciotomy: Alginate dressing, follow up with vascular surgeon today 8. Anxiety/Panic Attacks: Xanax BID 07/09/18 10:01
[2018-07-09] MEDS: Mometasone 220 MCG MDI INH SCH (18:53)
[2018-07-09] MEDS: CMC:Pantoprazole TAB (NF) 40 MG TAB PO SCH (21:30)
[2018-07-09] MEDS: Aspirin EC TAB* 81 MG TAB.EC PO SCH (21:30)
[2018-07-09] MEDS: hydrOXYzine HCL TAB* 25 MG PO PRN (21:34)
--- NOTE | 2018-07-10 04:45 | CONS ---
CC: Dr. Loulou Lemus; Dr. Steve Dale; Dr. Do Oquendo * CONSULTATION REPORT: DATE OF ADMISSION: 06/27/18 DATE OF CONSULTATION: 07/09/18 PRIMARY CARE PROVIDER: Do Oquendo M.D. PHYSICIAN REQUESTING CONSULTATION: Loulou Lemus MD ATTENDING PHYSICIAN: Dr. Will Martino (dictated by Shelly Charles, JAMAL). REASON FOR CONSULTATION: Bilateral lower extremity edema, concerned for congestive heart failure. HISTORY OF PRESENT ILLNESS: Mr. Kendall is an 82-year-old male with past medical history significant for atrial fibrillation, pacemaker, sleep apnea with CPAP, history of AAA, GERD, spinal stenosis with neurogenic claudication, GI bleed secondary to anticoagulation. In Early June, the patient developed a laceration on his right knee. At that time, he had a large hematoma to his right knee. His daughter, who is an orthopedic surgeon, ordered an x-ray. X-ray showed no fracture. About a week later, the patient developed a large hematoma over his patella and was seen by his primary care provider. Dr. Oquendo evaluated the right leg and recommended they go to the emergency room. He presented to the emergency room on 06/18/18. At that time, his right leg was noted to be edematous and weak and his foot was cold. Pulses were difficult to palpate. He had a CT of his back showing a previous fusion and aortic aneurysm. Additionally, he had an ultrasound of his right leg showing no distal right lower extremity flow and a markedly high pressure left lower extremity with OPAL out of range. At that point, it was decided to transfer him to [facility] on a heparin drip via helicopter. Upon arrival to [facility], he underwent a right femoral to peroneal artery bypass with in situ greater saphenous vein. He also underwent a posterior tibial artery exploration and a complete angiogram on 06/20/18. He was monitored in the ICU postoperatively and intubated. He had a wound VAC in place on his right lower extremity. He was able to be extubated on postop day 1 and was started on Plavix. On postop day 2, the wound VAC was changed without issue. He was doing well, but felt that he would benefit from acute rehab, so he was transferred to [facility] for acute inpatient rehabilitation. Since arriving at [facility], he has been doing well. He has continued to have bilateral lower extremity edema 1 to 2+, his fasciotomy site had a wound VAC in place with open wounds and muscle exposure. He has been doing well working with therapy. He had been complaining of increased pain in the right leg, but since the wound VAC has been discontinued the pain had improved. Over the last day or 2, his right knee has been bothersome to him. He was seen by the vascular surgeon in consultation today. They had concerns for heart failure as his edema in his leg is not improving. Mr. Kendall denies any history of heart failure. He is unsure when his last echo was completed. He did have an echo here at [facility] in 2014 showing no heart failure at that time. It is also to note that he has had Doppler study on 06/28/18 showing status post femoral popliteal bypass graft widely patent along its course and at the anastomosis, decreased-peak systolic velocities of the visualized arteries distal to the graft. Additionally, he had venous Doppler study of that leg on the same day showing no DVT, subcutaneous edema and a Lange's cyst. Mr. Kendall denies any fevers, chills , chest pain, shortness of breath, orthopnea, or dyspnea with exertion. He is able to lie flat. He does continue to complain of right knee discomfort. He is also reporting increased anxiety above his baseline. He states that the anxiety has long been problem for him.The hospitalist were asked to assist in co -management of this patient for workup of possible congestive heart failure. PAST MEDICAL HISTORY: 1. Atrial fibrillation. 2. Sleep apnea with CPAP. 3. History of abdominal aortic aneurysm. 4. GERD. 5. Spinal stenosis with neurogenic claudication. 6. History of GI bleed while on anticoagulation. 7. Hypothyroidism. PAST SURGICAL HISTORY: 1. Status post pacemaker placement. 2. Status post right SFA to peroneal arterial bypass with an in situ greater saphenous vein. 3. Status post right lower extremity fasciotomy. HOME MEDICATIONS: Include: 1. Acetaminophen 325 mg oral every 4 hours as needed for pain. 2. Aspirin 81 mg oral daily. 3. Xanax 0.25 mg oral twice daily as needed for anxiety. 4. Enalapril 10 mg oral every morning. 5. Flexeril 10 mg oral twice daily as needed for muscle spasm. 6. Celebrex 50 mg oral twice daily. 7. Wellbutrin XL 150 mg oral daily. 8. Enalapril 5 mg oral every p.m. 9. Metoprolol succinate XL 25 mg oral twice daily. 10. Levothyroxine 150 mg oral daily. 11. Ibuprofen 200 to 400 mg oral every 6 hours as needed for pain. 12. Orient 5/325 mg 1 tablet oral every 4 hours as needed for pain. 13. Zofran 4 mg oral every 6 hours as needed for nausea. 14. Omeprazole 40 mg oral daily. 15. Torsemide 10 mg oral daily. HOSPITAL MEDICATIONS: include: 1. Acetaminophen 650 mg oral every 6 hours as needed for fever and pain. 2. Albuterol HFA 2 puffs inhalation every 6 hours as needed for shortness of breath or wheezing. 3. Xanax 0.5 mg oral twice daily. 4. Aspirin 81 mg oral daily. 5. Wellbutrin XL 150 mg oral daily. 6. Sinemet 25/100 mg 1 tablet oral twice daily as needed for restless legs. 6. Plavix 75 mg oral daily. 7. Colace 100 mg oral twice daily. 8. Enalapril 10 mg oral every morning and 5 mg oral every evening. 9. Heparin 5000 units subcutaneous every 8 hours. 10. Orient 5/325, 1 to 2 tablets oral every 4 hours as needed for pain. 11. Hydroxyzine 25 mg oral every 6 hours as needed for itch. 12. Levothyroxine 150 mcg oral daily. 13. Milk of magnesia 30 mL oral every 6 hours as needed for constipation. 14. Metoprolol succinate 25 mg oral daily. 15. Asmanex 220 mcg MDI 2 puffs inhalation every evening. 16. Zofran 4 mg oral every 6 hours as needed for nausea. 17. Protonix 40 mg oral once daily. 18. MiraLAX 17 g oral daily as needed for constipation. 19. Senna 2 tablets oral daily at bedtime as needed for constipation. 20. Torsemide 20 mg oral daily. ALLERGIES: AMOXICILLIN, CEFADROXIL, CEPHALEXIN, AUGMENTIN, METOLAZONE. SOCIAL HISTORY: He denies tobacco, alcohol, or recreational drug use. He lives with his . His , Mayra Kendall, will be his surrogate decision maker in the event he is unable to make decisions for himself. REVIEW OF SYSTEMS: I performed a 11-point review of systems, all the pertinent positives and negatives are mentioned in the history of present illness. Remainder of the review of systems are negative. PHYSICAL EXAMINATION: Vital Signs: Temperature 97.6, heart rate 70, respiratory rate 16, O2 sat 96% on room air, blood pressure 122/69. General Appearance: The patient is alert, pleasant, appears to be in no acute distress. HEENT: Normocephalic, atraumatic. Pupils are equal and reactive to light. Extraocular movements are intact. Respiratory: There is no accessory muscle use. Lungs: Clear to auscultation bilaterally. Cardiovascular: Regular rate and rhythm. S1, S2 present. There are no murmurs, rubs, or gallops heard. Abdomen: Soft, nontender, and nondistended. There are bowel sounds present x4. Extremities: There is 2+ bilateral lower extremity edema. Peripheral pulses are positive bilaterally. Musculoskeletal: There is no clubbing or cyanosis noted. He exhibits good strength in all extremities. Neurological: He is alert and oriented x4. Cranial nerves II through XII are grossly intact. Psychological: He is calm and cooperative, but slightly anxious. Skin: He has a Medigrip stocking to his right leg covering his incision. DIAGNOSTIC STUDIES/LAB DATA: From ; sodium 134, potassium 4.0, chloride 110, CO2 of 25, BUN 22, creatinine 1.22, glucose 87, white blood cell count 5.8, hemoglobin 8.6, hematocrit 26, platelet count 208. Right venous Doppler from 06/28/18. Radiologist's impression: No right lower extremity deep vein thrombosis. Subcutaneous edema. Lange's cyst. Right lower extremity arterial graft on 06/28/18. Radiologist's impression: Status post femoral to popliteal bypass graft. The graft is widely patent along its course and at the anastomosis. There are markedly decreased peak systolic velocities of the visualized arteries distal to the graft. IMPRESSION: Mr. Kendall is an 82-year-old male with past medical history significant for atrial fibrillation, sleep apnea with continuous positive airway pressure, gastroesophageal reflux disease, spinal stenosis, critical limb ischemia, status post femoral to popliteal bypass and fasciotomy. Hospitalists were asked to evaluate the patient for possible heart failure per recommendations by a vascular surgeon. ASSESSMENT/PLAN: 1. Bilateral lower extremity edema. The patient has equal bilateral lower extremity edema. He denies orthopnea or shortness of breath. His lungs are clear, he has no crackles. He has no hypoxia and is not tachycardic. His last echo was in 2014, it showed left ventricular systolic function at the lower limits of normal with an ejection fraction of 50% to 55%. He follows with Dr. Rizo for Cardiology and states he has never been previously diagnosed with heart failure. Due to concern for possible heart failure and the patient being unsure if he has had another echo since 2014, we will get another echo to further evaluate his left ventricular function. For now, I am going to continue him on his torsemide, which is already increased from from 10 mg at home to 20 mg. He should continue to use the Medigrip to his leg and keep his legs elevated as much as possible. I will check a BNP in the AM. Once Medent is back up we should review his cardiology notes from Dr. Rizo. 2. Right knee pain. 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 We will continue supportive care for that and consider orthopedic consult if this continues to bother him. 3. Atrial fibrillation. His heart rate is regular today. He should be continued on his metoprolol. Continue his aspirin. He is not fully anticoagulated due to a history of a gastrointestinal bleed while on anticoagulation in the past. 4. Critical limb ischemia, status post femoral to popliteal bypass. He should be continued on Plavix and aspirin. He should continue to follow with his vascular surgeon. 5. Fasciotomy site wound. Should continue Xeroform to the lower incision and then a wet-to-dry dressing to the area with muscle exposure per Vascular Surgery 's recommendation. 6. Hypertension. He should continue on his current Vasotec and torsemide. 7. Anxiety. He should be continued on Xanax and Wellbutrin. 8. Fluids, electrolytes, and nutrition. He will be on heart-healthy diet. 9. Code status. Full code. 10. DVT prophylaxis. He is on aspirin, Plavix, SQ heparin and encouraged to ambulate. 11. Disposition. Inpatient acute rehab with disposition per the locket maker. TIME SPENT: Time spent for this consultation was approximately 60 minutes, greater than half of that was spent with the patient discussing medications, past medical history, the events leading up to his arrival to the hospital. The case has been reviewed with the attending, Dr. Martino, who agrees with the plan of care. Reviewed by KATERINA MEDINA 07/18/18 [id number]/[facility] #: [id number]
[2018-07-10] MEDS: Levothyroxine TAB* 150 MCG TAB PO SCH (05:49)
[2018-07-10] MEDS: Heparin VIAL(*) 5000 UNITS/ML VIAL (FIVE THOUSAND) SUBCUT SCH ×3 (05:49→21:19)
[2018-07-10] MEDS: Acetaminophen TAB* 325 MG PO PRN ×3 (06:05→21:17)
[2018-07-10] MEDS: HYDROcodone/ACETAMIN 5-325 MG* 1 TAB PO PRN ×4 (07:58→23:54)
[2018-07-10] MEDS: Torsemide TAB* 20 MG PO SCH (08:10)
[2018-07-10] MEDS: ALPRAZolam TAB* 0.5 MG PO SCH ×2 (08:10→21:17)
[2018-07-10] MEDS: Docusate CAP* 100 MG PO SCH ×2 (08:10→21:17)
[2018-07-10] MEDS: Clopidogrel TAB* 75 MG PO SCH (08:11)
[2018-07-10] MEDS: BuPROPion XL* 150 MG TAB.XL PO SCH (08:11)
[2018-07-10] MEDS: Enalapril TAB* 5 MG PO SCH ×2 (08:12→17:38)
[2018-07-10] MEDS: Metoprolol Succinate XL TAB* 25 MG PO SCH (08:12)
--- NOTE | 2018-07-10 11:40 | PN ---
Progress Note Date of Service: 07/10/18 Note: SUGEY BELL was visited. Nursing and therapy notes read and reviewed. After visit summary from Dr. Berkowitz reviewed as well as handwritten notes on back to me from the visit. Seen by hospitalist MOTOR ANALYST last night for leg edema and question CHF last night and ECHO is ordered. He reports only pain in his right knee, not both. He has pain anteriorly and inside when he has been static and initiates movement. It is better after he has been up and taken some steps. Intermittently he has also complained of pain posteriorly in the right knee at rest. Current Medications: Active Medications Generic Name Dose Route Start Last Admin Trade Name Freq PRN Reason Stop Dose Admin Acetaminophen 650 mg 06/27/18 15:08 07/10/18 06:05 Tylenol Tab* PO 650 mg Q6H PRN Administration FEVER/PAIN Hydrocodone Bitart/Acetaminophen 1 tab 06/28/18 07:04 07/01/18 20:27 [place] 5-325 Tab* PO 1 tab Q4H PRN Administration PAIN Hydrocodone Bitart/Acetaminophen 2 tab 06/29/18 13:16 07/10/18 07:58 [place] 5-325 Tab* PO 2 tab Q4H PRN Administration PAIN - SEVERE Albuterol 2 puff 06/27/18 15:23 Ventolin Hfa Inhaler* INH Q6H PRN SOB/WHEEZING Alprazolam 0.5 mg 07/09/18 09:00 07/10/18 08:10 Xanax Tab* PO 0.5 mg BID EVELIO Administration Aspirin 81 mg 06/27/18 21:00 07/09/18 21:30 Aspirin Ec Tab* PO 81 mg 2100 EVELIO Administration Bupropion HCl 150 mg 06/28/18 09:00 07/10/18 08:11 Wellbutrin Xl * PO 150 mg DAILY EVELIO Administration Protocol Carbidopa/Levodopa 1 tab 06/27/18 15:29 07/06/18 22:06 Sinemet 25/100 Tab(*) PO 1 tab BID PRN Administration Restless Legs Clopidogrel Bisulfate 75 mg 06/28/18 09:00 07/10/18 08:11 Plavix Tab* PO 75 mg DAILY EVELIO Administration Docusate Sodium 100 mg 06/27/18 21:00 07/10/18 08:10 Colace Cap* PO Not Given BID EVELIO Enalapril Maleate 5 mg 06/27/18 18:00 07/09/18 18:53 Vasotec Tab* PO 5 mg 1800 EVELIO Administration Enalapril Maleate 10 mg 06/28/18 09:00 07/10/18 08:12 Vasotec Tab* PO 10 mg 0900 EVELIO Administration Heparin Sodium (Porcine) 5,000 units 06/27/18 22:00 07/10/18 05:49 Heparin Vial(*) SUBCUT 5,000 units Q8HR EVELIO Administration Hydroxyzine HCl 25 mg 06/27/18 15:27 07/09/18 21:34 Atarax Tab* PO 25 mg Q6H PRN Administration itch Levothyroxine Sodium 150 mcg 06/28/18 06:00 07/10/18 05:49 Synthroid Tab* PO 150 mcg DAILY@0600 EVELIO Administration Magnesium Hydroxide 30 ml 07/02/18 19:37 Milk Of Magnesia Liq* PO Q6H PRN CONSTIPATION Metoprolol Succinate 25 mg 06/28/18 09:00 07/10/18 08:12 Toprol Xl Tab* PO 25 mg DAILY EVELIO Administration Mometasone Furoate 2 puff 06/27/18 18:00 07/09/18 18:53 Asmanex 220 Mcg Mdi * INH 2 puff QPM EVELIO Administration Ondansetron HCl 4 mg 06/29/18 13:16 07/09/18 05:42 Zofran Odt Tab* PO 4 mg Q6H PRN Administration NAUSEA Pantoprazole Sodium 40 mg 06/27/18 21:00 07/09/18 21:30 Protonix Tab (Nf) PO 40 mg 2100 EVELIO Administration Polyethylene Glycol/Electrolytes 17 gm 07/02/18 19:38 Miralax* PO DAILY PRN CONSTIPATION Senna 2 tab 06/27/18 15:08 06/30/18 21:55 Senokot Tab* PO 2 tab BEDTIME PRN Administration CONSTIPATION Torsemide 20 mg 07/08/18 09:00 07/10/18 08:10 Demadex* PO 20 mg DAILY EVELIO Administration Vital Signs: Vital Signs Temp Pulse Resp BP Pulse Ox 97.2 F 63 20 135/73 100 07/10/18 06:10 07/10/18 06:10 07/10/18 08:10 07/10/18 06:10 07/10/18 08:00 Lab Results: Laboratory Results - last 24 hr 07/10/18 06:15 B-Natriuretic Peptide 430 H Exam: GENERAL: Alert and appropriate LUNGS: Clear to auscultation bilaterally HEART: regular rate and rhythm ABDOMEN: Soft, +BS, non-tender, non-distended EXTREMITIES: 2+ edema, both feet and legs. Dorsalis Pedis pulse present in right foot. NEUROLOGIC: Able to move a 4 extremities. Right leg a little weak. Normal sensation. MUSCULOSKELETAL: No crepitus with knee ROM bilaterally. No tenderness to palpation bilaterally. I am unable to get a good exam for ligament laxity. Assessment/Plan: 1. Critical limb Ischemia, right foot: PT/OT. WBAT. Plavix/ASA, S/P bypass. Follow up with Dr. Berkowitz on 07/20 at 1300 again. Faxing RLE arterial and venous doppler results from 06/28/18 to him as requested. Graft was patent but arterial flows distal to the graft is low. 2. Atrial Fibrillation: Pacemaker. Toprol XL 3. Edema and question CHF: Appreciate hospitalist consult. BNP mildly elevated. ECHO is ordered. f/u hospitalist. Elevate legs above heart when not in thearpieis, gabby Wrap legs and continue higher dose Demadex for now. 4. GERD/GI Bleed: PPI 5. DVT Prophylaxis: Heparin 6. Advanced Directives: Full Code 7. Fasciotomy: Per Dr. Berkowitz dressing changes BID. (1) xeroform to upper part of lower incision to keep moist. (2) Lower part of lower incision wet to dry dressings. Wound clinic is following and he advises to not currettage anything. f/u on 07/20. 8. Anxiety/Panic Attacks: Xanax BID 9. Right knee pain: Prior x-ray in ED showed chondrocalcinosis, tricompartamental OA and osteopenia. His symptoms of increased pain after being static are indicative of inflammation either from OA or chondrocalcinosis. 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 I discussed this with him. Will get updated x-ray as radiologist mentioned occult fracture could be missed due to osteopenia. If this is function limited or worsening consider ortho input. Maybe a steroid injection could help. 07/10/18 11:47
[2018-07-10] MEDS: Ondansetron ODT TAB* 4 MG PO PRN (13:32)
[2018-07-10] MEDS ORDERED: Cyclobenzaprine TAB* 10 MG PO PRN (16:02)
[2018-07-10] MEDS: Mometasone 220 MCG MDI INH SCH (19:43)
[2018-07-10] MEDS: Aspirin EC TAB* 81 MG TAB.EC PO SCH (21:17)
[2018-07-10] MEDS: hydrOXYzine HCL TAB* 25 MG PO PRN (21:17)
[2018-07-10] MEDS: Carbidopa/Levodop 25/100 MG TAB(*) PO PRN (21:17)
[2018-07-10] MEDS: CMC:Pantoprazole TAB (NF) 40 MG TAB PO SCH (21:17)
[2018-07-11] MEDS: Acetaminophen TAB* 325 MG PO PRN ×4 (03:06→22:36)
[2018-07-11] MEDS: Levothyroxine TAB* 150 MCG TAB PO SCH (06:40)
[2018-07-11] MEDS: HYDROcodone/ACETAMIN 5-325 MG* 1 TAB PO PRN ×3 (06:40→20:45)
[2018-07-11] MEDS: Heparin VIAL(*) 5000 UNITS/ML VIAL (FIVE THOUSAND) SUBCUT SCH ×3 (06:41→22:32)
[2018-07-11 06:42] LABS: ABS Basophils 0.1 10^3/ul (0-0.2); ABS Eosinophils 0.7 10^3/ul (0-0.6); ABS Lymphocytes 0.9 10^3/ul (1.0-4.8); ABS Monocytes 0.8 10^3/ul (0-0.8); ABS Neutrophils 4.3 10^3/ul (1.5-7.7); ABS Nucleated RBC 0 10^3/ul; Eosinophil % 9.6 %; Hematocrit 26 % (42-52); Hemoglobin 8.7 g/dl (14.0-18.0); Lymphocyte % 13.7 %; Mean Corpuscular HGB Conc 33 g/dl (31-36); Mean Corpuscular Hemoglobin 33 pg (27-31); Mean Corpuscular Volume 98 fL (80-94); Mean Platelet Volume 6.9 fL (7.4-10.4); Nucleated Red Blood Cells % 0; Platelet Count 208 10^3/ul (150-450); Red Blood Count 2.68 10^6/ul (4.00-5.40); Red Cell Distribution Width 16 % (10.5-15); White Blood Count 6.8 10^3/ul (3.5-10.8)
[2018-07-11 06:58] LABS: BUN/Creatinine Ratio 23.6 (8-20); Calcium 8.5 mg/dL (8.6-10.3); EGFR Non-African American 54.2 (>60); Potassium 4.2 mmol/L (3.5-5.0)
[2018-07-11] MEDS: Docusate CAP* 100 MG PO SCH ×2 (08:14→20:44)
[2018-07-11] MEDS: ALPRAZolam TAB* 0.5 MG PO SCH ×2 (09:03→22:31)
[2018-07-11] MEDS: Torsemide TAB* 20 MG PO SCH (09:03)
[2018-07-11] MEDS: BuPROPion XL* 150 MG TAB.XL PO SCH (09:03)
[2018-07-11] MEDS: Metoprolol Succinate XL TAB* 25 MG PO SCH (09:04)
[2018-07-11] MEDS: Clopidogrel TAB* 75 MG PO SCH (09:05)
[2018-07-11] MEDS: Enalapril TAB* 5 MG PO SCH ×2 (09:05→18:33)
--- NOTE | 2018-07-11 10:09 | PN ---
Progress Note Date of Service: 07/11/18 Note: SUGEY BELL was visited. Nursing and therapy notes read and reviewed. Continues to complain of intermittent pain in right leg from the knee down. It is worst with initial 10 steps or movements when he has been static. Yesterday it was persistent once in bed for almost and hour. Come on then without warning. Pain is sharp. Denies numbness, tingling or weakness. No chest pain, shortness of breath or abdominal pain. Current Medications: Active Medications Generic Name Dose Route Start Last Admin Trade Name Freq PRN Reason Stop Dose Admin Acetaminophen 650 mg 06/27/18 15:08 07/11/18 09:05 Tylenol Tab* PO 650 mg Q6H PRN Administration FEVER/PAIN Hydrocodone Bitart/Acetaminophen 1 tab 06/28/18 07:04 07/01/18 20:27 [place] 5-325 Tab* PO 1 tab Q4H PRN Administration PAIN Hydrocodone Bitart/Acetaminophen 2 tab 06/29/18 13:16 07/11/18 06:40 [place] 5-325 Tab* PO 2 tab Q4H PRN Administration PAIN - SEVERE Albuterol 2 puff 06/27/18 15:23 Ventolin Hfa Inhaler* INH Q6H PRN SOB/WHEEZING Alprazolam 0.5 mg 07/09/18 09:00 07/11/18 09:03 Xanax Tab* PO 0.5 mg BID EVELIO Administration Aspirin 81 mg 06/27/18 21:00 07/10/18 21:17 Aspirin Ec Tab* PO 81 mg 2100 EVELIO Administration Bupropion HCl 150 mg 06/28/18 09:00 07/11/18 09:03 Wellbutrin Xl * PO 150 mg DAILY EVELIO Administration Protocol Carbidopa/Levodopa 1 tab 06/27/18 15:29 07/10/18 21:17 Sinemet 25/100 Tab(*) PO 1 tab BID PRN Administration Restless Legs Clopidogrel Bisulfate 75 mg 06/28/18 09:00 07/11/18 09:05 Plavix Tab* PO 75 mg DAILY EVELIO Administration Cyclobenzaprine HCl 10 mg 07/10/18 16:02 Flexeril Tab* PO TID PRN MUSCLE SPASMS Docusate Sodium 100 mg 06/27/18 21:00 07/11/18 08:14 Colace Cap* PO Not Given BID EVELIO Enalapril Maleate 5 mg 06/27/18 18:00 07/10/18 17:38 Vasotec Tab* PO 5 mg 1800 EVELIO Administration Enalapril Maleate 10 mg 06/28/18 09:00 07/11/18 09:05 Vasotec Tab* PO 10 mg 0900 EVELIO Administration Heparin Sodium (Porcine) 5,000 units 06/27/18 22:00 07/11/18 06:41 Heparin Vial(*) SUBCUT 5,000 units Q8HR EVELIO Administration Hydroxyzine HCl 25 mg 06/27/18 15:27 07/10/18 21:17 Atarax Tab* PO 25 mg Q6H PRN Administration itch Levothyroxine Sodium 150 mcg 06/28/18 06:00 07/11/18 06:40 Synthroid Tab* PO 150 mcg DAILY@0600 EVELIO Administration Magnesium Hydroxide 30 ml 07/02/18 19:37 Milk Of Magnesia Liq* PO Q6H PRN CONSTIPATION Metoprolol Succinate 25 mg 06/28/18 09:00 07/11/18 09:04 Toprol Xl Tab* PO 25 mg DAILY EVELIO Administration Mometasone Furoate 2 puff 06/27/18 18:00 07/10/18 19:43 Asmanex 220 Mcg Mdi * INH 2 puff QPM EVELIO Administration Ondansetron HCl 4 mg 06/29/18 13:16 07/10/18 13:32 Zofran Odt Tab* PO 4 mg Q6H PRN Administration NAUSEA Pantoprazole Sodium 40 mg 06/27/18 21:00 07/10/18 21:17 Protonix Tab (Nf) PO 40 mg 2100 EVELIO Administration Polyethylene Glycol/Electrolytes 17 gm 07/02/18 19:38 Miralax* PO DAILY PRN CONSTIPATION Senna 2 tab 06/27/18 15:08 06/30/18 21:55 Senokot Tab* PO 2 tab BEDTIME PRN Administration CONSTIPATION Torsemide 20 mg 07/08/18 09:00 07/11/18 09:03 Demadex* PO 20 mg DAILY EVELIO Administration Vital Signs: Vital Signs Temp Pulse Resp BP Pulse Ox 97.3 F 62 20 113/56 90 07/11/18 06:47 07/11/18 06:47 07/11/18 09:03 07/11/18 06:47 07/11/18 06:47 Lab Results: Laboratory Results - last 24 hr 07/11/18 07/11/18 06:26 06:26 WBC 6.8 RBC 2.68 L Hgb 8.7 L Hct 26 L MCV 98 H MCH 33 H MCHC 33 RDW 16 H Plt Count 208 MPV 6.9 L Neut % (Auto) 63.4 Lymph % (Auto) 13.7 [place] % (Auto) 12.1 Eos % (Auto) 9.6 Baso % (Auto) 1.2 Absolute Neuts (auto) 4.3 Absolute Lymphs (auto) 0.9 L Absolute Monos (auto) 0.8 Absolute Eos (auto) 0.7 H Absolute Basos (auto) 0.1 Absolute Nucleated RBC 0 Nucleated RBC % 0 Sodium 138 Potassium 4.2 Chloride 106 Carbon Dioxide 26 Anion Gap 6 BUN 30 H Creatinine 1.27 H Est GFR ( Amer) 65.5 Est GFR (Non-Af Amer) 54.2 BUN/Creatinine Ratio 23.6 H Glucose 90 Calcium 8.5 L Exam: GENERAL: Alert and appropriate LUNGS: Clear to auscultation bilaterally HEART: regular rate and rhythm ABDOMEN: Soft, +BS, non-tender, non-distended EXTREMITIES: 2+ edema, both feet and legs. Dorsalis Pedis pulse present in right foot. NEUROLOGIC: Able to move a 4 extremities. Right leg a little weak. Normal sensation. MUSCULOSKELETAL: No crepitus with knee ROM bilaterally. No tenderness to palpation bilaterally. I am unable to get a good exam for ligament laxity. Assessment/Plan: 1. Critical limb Ischemia, right foot: PT/OT. WBAT. Plavix/ASA, S/P SFA- peroneal bypass. Followed up with Dr. Berkowitz on 07/09 and will go again on 07/20 at 1300. Faxed RLE arterial and venous doppler results from 06/28/18 to him as requested on 07/10/17. Graft was patent but arterial flows distal to the graft is low. Given ongoing pain and edema will recheck arterial and venous doppler studies. 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 Fax today's results to Dr. Berkowitz when available (fax 2. Atrial Fibrillation: Pacemaker. Toprol XL 3. Edema and question CHF: Appreciate hospitalist consult as requested by Dr. Berkowitz. BNP mildly elevated. ECHO is ordered. f/u hospitalist. Elevate legs above heart when not in therapies, gabby Wrap legs and continue higher dose Demadex for now. 4. GERD/GI Bleed: PPI 5. DVT Prophylaxis: Heparin 6. Advanced Directives: Full Code 7. Fasciotomy: Per Dr. Berkowitz dressing changes BID. (1) xeroform to upper part of lower incision to keep moist. (2) Lower part of lower incision wet to dry dressings. Wound clinic is following and he advises to not currettage anything. f/u on 07/20. 8. Anxiety/Panic Attacks: Xanax BID 9. Right knee pain: I reviewed x-ray of right knee from 07/10/[address] Woodson. No occult fracture. Degenerative changes with essentially bone on bone in lateral compartment and chondrocalcinosis. 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 His symptoms of increased pain after being static are indicative of inflammation either from OA or chondrocalcinosis. 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 If knee pain is function limiting or worsening consider ortho input. Maybe a steroid injection could help. 07/11/18 10:01
[2018-07-11] MEDS: Ondansetron ODT TAB* 4 MG PO PRN (12:28)
--- NOTE | 2018-07-11 16:51 | PN ---
Hospitalist Progress Note Date of Service: 07/11/18 Discussed with Shelly Charles who assessed the patient and knows him from previous visits and did not believe he was in CHF. Recommendation was to wait to f/u after echo which I believe was done today but the report is still not available - per patient he thinks he had the test today. I will ask the provider coming on tomorrow to check the results. I do note his BNP seems to be trending down. The patient was seen at his bedside this evening where he was found to be laying flat in bed. He denies SOB/CP. Reports his LLE edema seems to be improving. He is elevating his feet frequently ROS: a 14 point review of systems was preformed all the pertinent findings ar above. PE: Appearance: A+O x3 in NAD Cardiac: S1S2 1+ LE edema b/l Lungs: CTA b/l Neuro: alert & oriented Plan: await TTE. Continue current diuretic dosage. I do see his creatinine went up. Will repeat in am. This appears to wax and wane but did recently have an increase in his diuretic. Follow creatinine closely. Added on daily weights Hospital medicine will f/u tomorrow.
[2018-07-11] MEDS: hydrOXYzine HCL TAB* 25 MG PO PRN (20:44)
[2018-07-11] MEDS: CMC:Pantoprazole TAB (NF) 40 MG TAB PO SCH (20:44)
[2018-07-11] MEDS: Aspirin EC TAB* 81 MG TAB.EC PO SCH (20:45)
[2018-07-11] MEDS: Mometasone 220 MCG MDI INH SCH (20:46)
[2018-07-11] MEDS: Carbidopa/Levodop 25/100 MG TAB(*) PO PRN (22:31)
[2018-07-12] MEDS: HYDROcodone/ACETAMIN 5-325 MG* 1 TAB PO PRN ×5 (01:21→23:38)
[2018-07-12] MEDS: Levothyroxine TAB* 150 MCG TAB PO SCH (05:57)
[2018-07-12] MEDS: Heparin VIAL(*) 5000 UNITS/ML VIAL (FIVE THOUSAND) SUBCUT SCH ×3 (05:57→22:07)
[2018-07-12 06:55] LABS: ABS Basophils 0.1 10^3/ul (0-0.2); ABS Eosinophils 0.6 10^3/ul (0-0.6); ABS Monocytes 0.7 10^3/ul (0-0.8); ABS Neutrophils 3.9 10^3/ul (1.5-7.7); ABS Nucleated RBC 0 10^3/ul; Eosinophil % 9.6 %; Hematocrit 27 % (42-52); Hemoglobin 8.7 g/dl (14.0-18.0); Lymphocyte % 15.2 %; Mean Corpuscular HGB Conc 32 g/dl (31-36); Mean Corpuscular Hemoglobin 32 pg (27-31); Mean Corpuscular Volume 98 fL (80-94); Mean Platelet Volume 7.2 fL (7.4-10.4); Nucleated Red Blood Cells % 0; Platelet Count 206 10^3/ul (150-450); Red Blood Count 2.76 10^6/ul (4.00-5.40); Red Cell Distribution Width 16 % (10.5-15); White Blood Count 6.3 10^3/ul (3.5-10.8)
[2018-07-12 07:14] LABS: Albumin 2.7 g/dL (3.2-5.2); Albumin/Globulin Ratio 0.9 (1-3); BUN/Creatinine Ratio 22.6 (8-20); Calcium 8.1 mg/dL (8.6-10.3); EGFR Non-African American 51.3 (>60); Globulin 2.9 g/dL (2-4); Potassium 4.1 mmol/L (3.5-5.0); Total Bilirubin 0.6 mg/dL (0.2-1.0); Total Protein 5.6 g/dL (6.4-8.9)
[2018-07-12] MEDS: Docusate CAP* 100 MG PO SCH ×2 (07:41→20:44)
[2018-07-12] MEDS: Metoprolol Succinate XL TAB* 25 MG PO SCH (07:41)
[2018-07-12] MEDS: Clopidogrel TAB* 75 MG PO SCH (07:41)
[2018-07-12] MEDS: Enalapril TAB* 5 MG PO SCH ×2 (07:41→18:46)
[2018-07-12] MEDS: Torsemide TAB* 20 MG PO SCH (07:41)
[2018-07-12] MEDS: BuPROPion XL* 150 MG TAB.XL PO SCH (07:41)
[2018-07-12] MEDS: ALPRAZolam TAB* 0.5 MG PO SCH ×2 (07:42→20:44)
--- NOTE | 2018-07-12 13:35 | ECHO ---
Patient: SUGEY BELL [facility] Rec#: [id number] : 1935 Date: 07/12/2018 Age: 82y Height: 185 cm / 72.8 in Weight: 100 kg / 220.4 lbs Sex: M BSA: 2.24 Room#: 250 Admit Date#: 06/27/2018 Type: Outpatient Referring: Shelly Campos NP Reading: Bubba Rizo MD Testing Director: Arlyn Lynch,KHLOECS,RDMS CC: Do Oquendo MD Transthoracic Echocardiogram Indication: Edema BP: 111/65 HR: 95 Rhythm: Paced Findings History: Pacemaker, CAD, PCI, AAA repair, AFIB, NATHEN. Technical Comments: The study quality is fair. Left Ventricle: The left ventricular chamber size is normal. Mild concentric left ventricular hypertrophy is observed. Basal interventricular septum shows moderate thickening. Left ventricular systolic function is at the lower limits of normal. The estimated ejection fraction is 50-55%. There is abnormal ventricular septal wall motion consistent with right ventricular pacemaker. The assessment of diastolic function is non-diagnostic. Left Atrium: The left atrium is moderate to severely dilated. Right Ventricle: The right ventricle is mildly dilated. The right ventricular global systolic function is hyperdynamic. Right Atrium: The right atrium is moderately dilated. Aortic Valve: The aortic valve leaflets are mildly thickened. There is no evidence of aortic regurgitation. There is no evidence of aortic stenosis. Mitral Valve: There is mitral annular calcification. The mitral valve leaflets are mildly thickened. There is mild mitral regurgitation. There is no evidence of mitral stenosis. Tricuspid Valve: The tricuspid valve leaflets are mildly thickened. There is moderate tricuspid regurgitation. There is evidence of mild to moderate pulmonary hypertension. Pulmonic Valve: The pulmonic valve structure is not well visualized. There is no evidence of pulmonic regurgitation. Pericardium: There is no significant pericardial effusion. Aorta: The aortic root appears normal. There is no dilatation of the aortic arch. Pulmonary Artery: The main pulmonary artery is not well visualized. Venous: The inferior vena cava appears normal in size. There is less than 50% respiratory change in the inferior vena cava dimension. Summary: There are no significant changes when compared to the previous study done on 04/30/15 Conclusions Mild concentric left ventricular hypertrophy is observed. Left ventricular systolic function is at the lower limits of normal. The estimated ejection fraction is 50-55%. There is abnormal ventricular septal wall motion consistent with right ventricular pacemaker. The assessment of diastolic function is non-diagnostic. The right ventricular global systolic function is hyperdynamic. There is no evidence of aortic stenosis. There is mild mitral regurgitation. There is no evidence of mitral stenosis. There is moderate tricuspid regurgitation. There is evidence of mild to moderate pulmonary hypertension. There is no significant pericardial effusion. There are no significant changes when compared to the previous study done on 04/30/15 Measurements Name Value Normal Range RVIDd (AP) 2D 3.7 cm (0.9 - 2.6) RVDdMajor (2D) 2.7 cm (2.2 - 4.4) RAd ISD 4CH 6.9 cm (3.4 - 4.9) RA (A4C)W 5.1 cm (2.9 - 4.6) IVSd (2D) 1.5 cm (0.6 - 1) LVPWd (2D) 1.3 cm (0.6 - 1) LVIDd (2D) 4.5 cm (3.6 - 5.4) LVIDs (2D) 2.5 cm - LV FS (2D) 45 % (25 - 45) Aortic Annulus 2.2 cm (1.4 - 2.6) Ao root diameter (2D) 3.2 cm (2.1 - 3.5) Ascending Ao 3.3 cm (2.1 - 3.4) Aortic arch 2.7 cm (1.8 - 3.4) LA dimension (AP) 2D 4.7 cm (2.3 - 3.8) LAd ISD 4CH 6.7 cm (2.9 - 5.3) LA ISD 4CH W 5.3 cm (2.5 - 4.5) Name Value Normal Range LA ESV BP (A/L) index 46 ml/m2 - Name Value Normal Range MV E-wave Vmax 0.9 m/sec - MV deceleration time 158 msec - LV septal e' Vmax 0.06 m/sec - LV lateral e' Vmax 0.11 m/sec - LV E:e' septal ratio 16 ratio - LV E:e' lateral ratio 8 ratio - Name Value Normal Range AV Vmax 1.4 m/sec - AV peak gradient 8 mmHg - LVOT Vmax 1.1 m/sec - LVOT peak gradient 5 mmHg - VINH Vmax 0.4 m/sec - Name Value Normal Range TR Vmax 3 m/sec - TR peak gradient 36 mmHg - RAP 8 mmHg - RVSP 44 mmHg - IVC diameter 1.9 cm - Name Value Normal Range PV Vmax 0.9 m/sec - PV peak gradient 3.2 mmHg -
--- NOTE | 2018-07-12 17:13 | PN ---
Subjective Date of Service: 07/12/18 Interval History: Pt states that he is feeling relatively well, and that physical therapy has been helpful, although he tends to be sore and tired after. He states that his b/l LE continue to be swollen. Denies scott, CP, SOB, cough, numbness or tingling in LE, abd pain, changes in bowel or bladder habits. Objective Active Medications: Acetaminophen (Tylenol Tab*) 650 mg PO Q6H PRN Hydrocodone Bitart/Acetaminophen ([place] 5-325 Tab*) 1 tab PO Q4H PRN Hydrocodone Bitart/Acetaminophen ([place] 5-325 Tab*) 2 tab PO Q4H PRN Albuterol (Ventolin Hfa Inhaler*) 2 puff INH Q6H PRN Alprazolam (Xanax Tab*) 0.5 mg PO BID EVELIO Aspirin (Aspirin Ec Tab*) 81 mg PO 2100 EVELIO Bupropion HCl (Wellbutrin Xl *) 150 mg PO DAILY EVELIO; Protocol Carbidopa/Levodopa (Sinemet 25/100 Tab(*)) 1 tab PO BID PRN Clopidogrel Bisulfate (Plavix Tab*) 75 mg PO DAILY EVELIO Cyclobenzaprine HCl (Flexeril Tab*) 10 mg PO TID PRN Docusate Sodium (Colace Cap*) 100 mg PO BID EVELIO Enalapril Maleate (Vasotec Tab*) 5 mg PO 1800 EVELIO Enalapril Maleate (Vasotec Tab*) 10 mg PO 0900 EVELIO Heparin Sodium (Porcine) (Heparin Vial(*)) 5,000 units SUBCUT Q8HR EVELIO Hydroxyzine HCl (Atarax Tab*) 25 mg PO Q6H PRN Levothyroxine Sodium (Synthroid Tab*) 150 mcg PO DAILY@0600 EVELIO Magnesium Hydroxide (Milk Of Magnesia Liq*) 30 ml PO Q6H PRN Metoprolol Succinate (Toprol Xl Tab*) 25 mg PO DAILY EVELIO Mometasone Furoate (Asmanex 220 Mcg Mdi *) 2 puff INH QPM EVELIO Ondansetron HCl (Zofran Odt Tab*) 4 mg PO Q6H PRN Pantoprazole Sodium (Protonix Tab (Nf)) 40 mg PO 2100 EVELIO Polyethylene Glycol/Electrolytes (Miralax*) 17 gm PO DAILY PRN Senna (Senokot Tab*) 2 tab PO BEDTIME PRN Torsemide (Demadex*) 20 mg PO DAILY EVELIO Vital Signs - 8 hr 07/12/18 07/12/18 07/12/18 09:50 14:17 15:57 Temperature 97.6 F Pulse Rate 59 Respiratory 18 16 20 Rate Blood Pressure 111/68 (mmHg) O2 Sat by Pulse 96 Oximetry 07/12/18 16:30 Temperature Pulse Rate Respiratory 16 Rate Blood Pressure (mmHg) O2 Sat by Pulse Oximetry Oxygen Devices in Use Now: None Appearance: Pt is resting in bed, legs elevated. In no acute distress. Eyes: No Scleral Icterus, PERRLA Ears/Nose/Mouth/Throat: NL Teeth, Lips, Gums, Mucous Membranes Moist Neck: NL Appearance and Movements; NL JVP, Trachea Midline Respiratory: Symmetrical Chest Expansion and Respiratory Effort, Clear to Auscultation Cardiovascular: NL Sounds; No Murmurs; No JVD, RRR Abdominal: NL Sounds; No Tenderness; No Distention Extremities: No Clubbing, Cyanosis, - - B/l LE edema, R>L, 2+ pitting; pedal pulses 2+ b/l Neurological: Alert and Oriented x 3, NL Sensation Result Diagrams: 07/12/18 06:25 07/12/18 06:25 Assess/Plan/Problems-Billing Pt is an 82yom with a h/o AF, GERD, GIB,admitted PMRU for critical limb ischemia post bypass and fasciotomy. Hospitalist consulted to manage edema and ? CHF exacerbation. - Patient Problems (1) Edema Comment: -B/l LE edema 2+ pitting -Decrease Demadex to home dose of 10mg due to decrease in kidney function -Compression stockings -Elevate legs when in bed -BMP in a.m. (2) Atrial fibrillation Comment: -Rate controlled today -Continue metoprolol, asa -Pt has h/o GIB when previously on anticoagulation (3) DVT prophylaxis Comment: -Continue Heparin (4) Full code status
--- NOTE | 2018-07-12 18:43 | PN ---
Progress Note Date of Service: 07/12/18 Note: SUGEY BELL was visited. Therapy notes read and reviewed. His BUN/CR have risen as he has been diureses. His Demadex was cut back to 10. His legs look slightly less edematous Current Medications: Active Medications Generic Name Dose Route Start Last Admin Trade Name Freq PRN Reason Stop Dose Admin Acetaminophen 650 mg 06/27/18 15:08 07/11/18 22:36 Tylenol Tab* PO 650 mg Q6H PRN Administration FEVER/PAIN Hydrocodone Bitart/Acetaminophen 1 tab 06/28/18 07:04 07/01/18 20:27 [place] 5-325 Tab* PO 1 tab Q4H PRN Administration PAIN Hydrocodone Bitart/Acetaminophen 2 tab 06/29/18 13:16 07/12/18 14:17 [place] 5-325 Tab* PO 2 tab Q4H PRN Administration PAIN - SEVERE Albuterol 2 puff 06/27/18 15:23 Ventolin Hfa Inhaler* INH Q6H PRN SOB/WHEEZING Alprazolam 0.5 mg 07/09/18 09:00 07/12/18 07:42 Xanax Tab* PO 0.5 mg BID EVELIO Administration Aspirin 81 mg 06/27/18 21:00 07/11/18 20:45 Aspirin Ec Tab* PO 81 mg 2100 EVELIO Administration Bupropion HCl 150 mg 06/28/18 09:00 07/12/18 07:41 Wellbutrin Xl * PO 150 mg DAILY EVELIO Administration Protocol Carbidopa/Levodopa 1 tab 06/27/18 15:29 07/11/18 22:31 Sinemet 25/100 Tab(*) PO 1 tab BID PRN Administration Restless Legs Clopidogrel Bisulfate 75 mg 06/28/18 09:00 07/12/18 07:41 Plavix Tab* PO 75 mg DAILY EVELIO Administration Cyclobenzaprine HCl 10 mg 07/10/18 16:02 Flexeril Tab* PO TID PRN MUSCLE SPASMS Docusate Sodium 100 mg 06/27/18 21:00 07/12/18 07:41 Colace Cap* PO 100 mg BID EVELIO Administration Enalapril Maleate 5 mg 06/27/18 18:00 07/11/18 18:33 Vasotec Tab* PO 5 mg 1800 EVELIO Administration Enalapril Maleate 10 mg 06/28/18 09:00 07/12/18 07:41 Vasotec Tab* PO 10 mg 0900 EVELIO Administration Heparin Sodium (Porcine) 5,000 units 06/27/18 22:00 07/12/18 14:19 Heparin Vial(*) SUBCUT 5,000 units Q8HR EVELIO Administration Hydroxyzine HCl 25 mg 06/27/18 15:27 07/11/18 20:44 Atarax Tab* PO 25 mg Q6H PRN Administration itch Levothyroxine Sodium 150 mcg 06/28/18 06:00 07/12/18 05:57 Synthroid Tab* PO 150 mcg DAILY@0600 EVELIO Administration Magnesium Hydroxide 30 ml 07/02/18 19:37 Milk Of Magnesia Liq* PO Q6H PRN CONSTIPATION Metoprolol Succinate 25 mg 06/28/18 09:00 07/12/18 07:41 Toprol Xl Tab* PO 25 mg DAILY EVELIO Administration Mometasone Furoate 2 puff 06/27/18 18:00 07/11/18 20:46 Asmanex 220 Mcg Mdi * INH 2 puff QPM EVELIO Administration Ondansetron HCl 4 mg 06/29/18 13:16 07/11/18 12:28 Zofran Odt Tab* PO 4 mg Q6H PRN Administration NAUSEA Pantoprazole Sodium 40 mg 06/27/18 21:00 07/11/18 20:44 Protonix Tab (Nf) PO 40 mg 2100 EVELIO Administration Polyethylene Glycol/Electrolytes 17 gm 07/02/18 19:38 Miralax* PO DAILY PRN CONSTIPATION Senna 2 tab 06/27/18 15:08 06/30/18 21:55 Senokot Tab* PO 2 tab BEDTIME PRN Administration CONSTIPATION Torsemide 10 mg 07/13/18 09:00 Demadex* PO DAILY [facility] Vital Signs: Vital Signs Temp Pulse Resp BP Pulse Ox 97.6 F 59 16 111/68 96 07/12/18 15:57 07/12/18 15:57 07/12/18 16:30 07/12/18 15:57 07/12/18 15:57 Lab Results: Laboratory Results - last 24 hr 07/12/18 07/12/18 06:25 06:25 WBC 6.3 RBC 2.76 L Hgb 8.7 L Hct 27 L MCV 98 H MCH 32 H MCHC 32 RDW 16 H Plt Count 206 MPV 7.2 L Neut % (Auto) 62.5 Lymph % (Auto) 15.2 [place] % (Auto) 11.4 Eos % (Auto) 9.6 Baso % (Auto) 1.3 Absolute Neuts (auto) 3.9 Absolute Lymphs (auto) 1.0 Absolute Monos (auto) 0.7 Absolute Eos (auto) 0.6 Absolute Basos (auto) 0.1 Absolute Nucleated RBC 0 Nucleated RBC % 0 Sodium 138 Potassium 4.1 Chloride 105 Carbon Dioxide 26 Anion Gap 7 BUN 30 H Creatinine 1.33 H Est GFR ( Amer) 62.1 Est GFR (Non-Af Amer) 51.3 BUN/Creatinine Ratio 22.6 H Glucose 85 Calcium 8.1 L Total Bilirubin 0.60 AST 14 ALT 3 L Alkaline Phosphatase 61 Total Protein 5.6 L Albumin 2.7 L Globulin 2.9 Albumin/Globulin Ratio 0.9 L Exam: GENERAL: Alert and appropriate LUNGS: Clear to auscultation bilaterally HEART: regular rate and rhythm ABDOMEN: Soft, +BS, non-tender, non-distended EXTREMITIES: 2+ edema, both feet and legs. Dorsalis Pedis pulse present in right foot. NEUROLOGIC: Able to move a 4 extremities. Right leg a little weak. Normal sensation. Assessment/Plan: 1. Critical limb Ischemia, right foot: PT/OT. WBAT. Plavix/ASA, S/P bypass. Follow up with surgeon 07/20/18 2. Atrial Fibrillation: Pacemaker. Toprol XL 3. Edema: Chava Wrap, Demadex. 4. Possible CHF: BNP ordered for tomorrow. Echo pending. 5. GERD/GI Bleed: PPI 6. DVT Prophylaxis: Heparin 7. Advanced Directives: Full Code 8. Fasciotomy: Alginate dressing, follow up with vascular surgeon 9. Anxiety/Panic Attacks: Xanax BID 07/12/18 18:44 07/12/18 18:45
[2018-07-12] MEDS: Mometasone 220 MCG MDI INH SCH (18:47)
[2018-07-12] MEDS: CMC:Pantoprazole TAB (NF) 40 MG TAB PO SCH (20:44)
[2018-07-12] MEDS: Aspirin EC TAB* 81 MG TAB.EC PO SCH (20:45)
[2018-07-13] MEDS: Acetaminophen TAB* 325 MG PO PRN ×2 (02:12→23:03)
[2018-07-13] MEDS: Carbidopa/Levodop 25/100 MG TAB(*) PO PRN (02:21)
[2018-07-13] MEDS: Heparin VIAL(*) 5000 UNITS/ML VIAL (FIVE THOUSAND) SUBCUT SCH ×3 (07:00→21:24)
[2018-07-13] MEDS: Levothyroxine TAB* 150 MCG TAB PO SCH (07:04)
[2018-07-13] MEDS: Enalapril TAB* 5 MG PO SCH ×2 (08:58→18:43)
[2018-07-13] MEDS: BuPROPion XL* 150 MG TAB.XL PO SCH (08:58)
[2018-07-13] MEDS: Torsemide TAB* 20 MG PO SCH (08:58)
[2018-07-13] MEDS: ALPRAZolam TAB* 0.5 MG PO SCH ×2 (08:59→20:36)
[2018-07-13] MEDS: Docusate CAP* 100 MG PO SCH ×2 (08:59→20:36)
[2018-07-13] MEDS: Clopidogrel TAB* 75 MG PO SCH (08:59)
[2018-07-13] MEDS: Metoprolol Succinate XL TAB* 25 MG PO SCH (08:59)
[2018-07-13] MEDS: HYDROcodone/ACETAMIN 5-325 MG* 1 TAB PO PRN ×2 (09:00→20:36)
--- NOTE | 2018-07-13 12:45 | PN ---
Subjective Date of Service: 07/13/18 Interval History: Pt states that he is doing well today. He feels that his PT is progressing well. He is able to get around well, but is apprehensive to ambulate alone, stating that he calls on nursing staff for assistance with getting to and from the bathroom. Pt states that he is still having pain in the R knee and R LE. He continues to have edema in b/l LE. Denies CP, SOB, fever/chills, cough, abd pain. Objective Active Medications: Acetaminophen (Tylenol Tab*) 650 mg PO Q6H PRN Hydrocodone Bitart/Acetaminophen ([place] 5-325 Tab*) 1 tab PO Q4H PRN Hydrocodone Bitart/Acetaminophen ([place] 5-325 Tab*) 2 tab PO Q4H PRN Albuterol (Ventolin Hfa Inhaler*) 2 puff INH Q6H PRN Alprazolam (Xanax Tab*) 0.5 mg PO BID EVELIO Aspirin (Aspirin Ec Tab*) 81 mg PO 2100 EVELIO Bupropion HCl (Wellbutrin Xl *) 150 mg PO DAILY EVELIO; Protocol Carbidopa/Levodopa (Sinemet 25/100 Tab(*)) 1 tab PO BID PRN Clopidogrel Bisulfate (Plavix Tab*) 75 mg PO DAILY EVELIO Cyclobenzaprine HCl (Flexeril Tab*) 10 mg PO TID PRN Docusate Sodium (Colace Cap*) 100 mg PO BID EVELIO Enalapril Maleate (Vasotec Tab*) 5 mg PO 1800 EVELIO Enalapril Maleate (Vasotec Tab*) 10 mg PO 0900 EVELIO Heparin Sodium (Porcine) (Heparin Vial(*)) 5,000 units SUBCUT Q8HR EVELIO Hydroxyzine HCl (Atarax Tab*) 25 mg PO Q6H PRN Levothyroxine Sodium (Synthroid Tab*) 150 mcg PO DAILY@0600 EVELIO Magnesium Hydroxide (Milk Of Magnesia Liq*) 30 ml PO Q6H PRN Metoprolol Succinate (Toprol Xl Tab*) 25 mg PO DAILY EVELIO Mometasone Furoate (Asmanex 220 Mcg Mdi *) 2 puff INH QPM EVELIO Ondansetron HCl (Zofran Odt Tab*) 4 mg PO Q6H PRN Pantoprazole Sodium (Protonix Tab (Nf)) 40 mg PO 2100 EVELIO Polyethylene Glycol/Electrolytes (Miralax*) 17 gm PO DAILY PRN Senna (Senokot Tab*) 2 tab PO BEDTIME PRN Torsemide (Demadex*) 10 mg PO DAILY EVELIO Vital Signs: Temp Pulse Resp BP Pulse Ox 97.9 F 66 18 128/71 98 07/13/18 06:39 07/13/18 06:39 07/13/18 10:42 07/13/18 06:39 07/13/18 06:39 Oxygen Devices in Use Now: None Appearance: Pt is sitting at edge of bed. He is in no acute distress. Eyes: No Scleral Icterus, PERRLA Ears/Nose/Mouth/Throat: NL Teeth, Lips, Gums, Mucous Membranes Moist Neck: NL Appearance and Movements; NL JVP, Trachea Midline Respiratory: Symmetrical Chest Expansion and Respiratory Effort, Clear to Auscultation Cardiovascular: NL Sounds; No Murmurs; No JVD, RRR Abdominal: NL Sounds; No Tenderness; No Distention, - - midline hernia x2- pt states that this is not new and is baseline in appearance and size Extremities: No Clubbing, Cyanosis, - - B/l LE edema, R>L. Chava wrap compression to L. Dressing to R is CDI. Neurological: Alert and Oriented x 3, NL Sensation Result Diagrams: 07/12/18 06:25 07/13/18 13:12 Assess/Plan/Problems-Billing 1. Critical limb Ischemia, right foot: PT/OT. WBAT. Plavix/ASA, S/P bypass. Follow up with surgeon 07/20/18 2. Atrial Fibrillation: Pacemaker. Toprol XL 3. Edema: Chava Wrap, Demadex. 4. Possible CHF: BNP ordered for tomorrow. Echo pending. 5. GERD/GI Bleed: PPI 6. DVT Prophylaxis: Heparin 7. Advanced Directives: Full Code 8. Fasciotomy: Alginate dressing, follow up with vascular surgeon 9. Anxiety/Panic Attacks: Xanax BID 07/12/18 18:44 07/12/18 18:45 - Patient Problems (1) Diastolic heart failure Comment: -Per 04/29/[address] Castaneda, pt has dx of HF with preserved EF. Pt is being treated for this with Metoprolol, Enalopril, and Torsemide. BNP continues to be elevated, but is at baseline. HF is stable at this time. Continue patients home doses for treatment of HFpEF. -Pt has continued LE edema; continue Torsemide at home dose, compression with CHAVA, elevation of b/l LE when in bed, and continue to monitor renal fx. -Thank you for this consult; hospitalist group will sign off on the patient at the current time, as patient has stable HF and is not decompensated. Please re- consult in the future if necessary. -Above information was relayed to pt's nurse, Oscar (2) Atrial fibrillation Comment: -Rate controlled today -Continue metoprolol, asa -Pt has h/o GIB when previously on anticoagulation (3) DVT prophylaxis Comment: -Continue Heparin (4) Full code status Status and Disposition: Hospital service will sign off. Please re-consult if necessary.
--- NOTE | 2018-07-13 12:48 | PMRUTEAM ---
PMRU: Team Meeting Current Status: Nursing: Current Status Skin Deviations [Bilateral Bruise Flank] Skin Deviations [Coccyx] Other Skin Deviations [Bilateral Leg Bruise ] Skin Deviations [Right Groin] Incision Skin Deviations [Right Medial Incision Thigh] Skin Deviations [Right Knee] Abrasion Skin Deviations [Right Lower Incision Anterior Leg] Skin Deviation Description [ red and blanchable Coccyx] Skin Deviation Description [ healed Right Groin] Skin Deviation Description [ scabbed, healing, but redness noted around Right Medial Thigh] incision Skin Deviation Description [ healed Right Knee] Skin Deviation Description [ dressing changed, xeroform to proximal end of Right Lower Anterior Leg] incision and wet 4x4 to distal end, covered with abd pads, kerlex. Drain Type [Right Lower Wound Vac Anterior Leg] Bladder Current Status using urinal to void Bowel Current Status colace given Nutrition Current Status appetite good Medication Current Status needs reinforcement Physical Therapy: Current Status Bed Mobility Assistance Supervision Transfer Mobility Assistance Supervision Transfer/Bed Mobility Rolling Walker Recommended Devices Transfer Mobility Comment pt. is able to perform a transfer using a 2 w/w. Ambulation Assistance Supervision Ambulation Assistive Devices Rolling Walker Number of Feet Patient 220 Ambulated Ambulation Comment pt. presents a slow modified reciprocal tyoe gait pattern. Stairs Assistance Supervision Stairs Recommended Devices One Rail Number of Stairs 5 Curb Not Tested Wheelchair Propulsion Ability Maximum Assistance Wheelchair Distance (ft) 100 Objective Comments step to pattern ascend/descending stairs with x1 cue for "up with the good, down with the bad" Occupational Therapy: Current Status Upper Body Dressing Supervision Lower Body Dressing Supervision,Min Assist Lower Body Dressing Progress occasional assist for socks. Bathing Supervision Toileting Supervision Toilet Transfer Supervision Shower Transfer Supervision Eating Independent Rec Therapy: Current Status Summary of Assessment and RT assessment complete and pt. is aware of Clinical Impression services. Pt. has been open to leisure visits and has has visitors in the afternoons. Treatment Goals Patient will engage in recreation and leisure activities while on the unit. Treatment Plan Provide and encourage involvement in RT services. Social Work: Current Status Discharge Plan return home with home care svs and family support Potential for Family Training pt's is involved and supportive Anticipated Discharge Home Destination Discharge With home care svs and family support Nutrition: Current Status Monitoring Pt continues to c/o limited appetite - again states food sounds and looks good until he smells it. Denies current nausea (states last 1/6). Encouraged colder foods but he declined per se. Had intended to try ensure but had not yet received so will begin. Appetite still impacted by anxiety. Per report, ? CHF, with moderate edema which may be impacting appetite also. Last BM 07/09 - being followed. Goals: Physical Therapy: Initial Goals Bed Mobility Assistance Independent Transfer Mobility Assistance Independent Transfer/Bed Mobility Rolling Walker Recommended Devices Ambulation Independent Ambulation Recommended Devices Rolling Walker Ambulation Distance 150 Stairs Assistance Independent Stair Recommended Devices One Rail Number of Stairs 5 Home Exercise Program Independent Assistance Physical Therapy: Updated Goals Bed Mobility Assistance Independent Transfer Mobility Assistance Independent Transfer/Bed Mobility Rolling Walker Recommended Devices Ambulation Assistance Independent Ambulation Assistive Devices Rolling Walker Ambulation Distance (ft) 150 Stairs Assistance Independent Stairs Recommended Devices One Rail Number of Stairs 5 Home Exercise Program Independent Assistance Occupational Therapy: Initial Goals Goals to be Completed in (Days 2-3 weeks ) Upper Body Bathing Routine Modified Independent with Lower Body Bathing Routine Modified Independent with Upper Body Dressing Routine Independent Lower Body Dressing Routine Modified Independent with Toilet Hygeine and Clothing Modified Independent with Management Routine Toilet Transfer Routine Modified Independent with Step-In Shower Transfer Modified Independent with Routine Functional Transfers for ADL Modified Independent with Grooming Routine Independent Feeding Routine Independent Nursing: Goals Bladder Goal independent Bowel Goal last bm 07/04/18 Nutrition Goal 100% of all meals Medication Goal supervision Nutrition: Goals Intervention Goals 1. Intake will improve to consistently >50% of meals 2. Pt will achieve/maintain regular bowel pattern without constipation/diarrhea 3. Intake will be adequate to preserve lean body mass without unintended wt loss 4. Tolerates oral intake w/o GI distress Social Work: Goals Discharge Plan return home with home care svs and family support Potential for Family Training pt's is involved and supportive Anticipated Discharge Home Destination Discharge With home care svs and family support Care Plan: Care Plan ADL's - Improve/Maintain Start: 06/27/18 16:55 Freq: DAILY Status: Active Target: Protocol: Activity Type Activity Date Activity User E-Sign Co-Sign Detail Recorded Client Recorded Date Recorded By Document 07/09/18 14:24 [id number] 07/09/18 14:24 [id number] 07/09/18 14:24 PMRU Outcome: ADL's/ADL Transfers Orders/Interventions Occupational Therapy Evaluation & Treatment Communication Tool in Patient Room Device Yes Patient to receive OT 5x/wk for 60-120 Therex min/day Self Care Management Group Therapy UE/LE ADL's with Assist Yes: Lior ADL Transfers with Assist Yes: Lior Toileting: Transfers,Clothing Management Yes: Lior ,Hygeine w/Assist Progression Toward Outcome/Goals Progressing Outcome/Goals Met Pt has almost met OT goals. Anticipated pt is going to require assist at d/c with LB dressing. Coping/Psych-Improve/Maintain Start: 06/27/18 16:55 Freq: QSHIFT Status: Active Target: Protocol: Activity Type Activity Date Activity User E-Sign Co-Sign Detail Recorded Client Recorded Date Recorded By Document 07/12/18 10:00 [id number] 07/12/18 10:48 [id number] 07/12/18 10:00 PMRU Outcome: Coping/Psychosocial Coping Outcome/Goals Verbalization of Acceptance of Rehab Admit Verbalization of Sense of Control Over Health Status Utilization of Appropriate Problem Solving Techniques Willingness to Participate in Treatment Plan and Basic Needs Utilization of Available Support Systems Psychosocial Outcome/Goals Maintain/ Improve Emotional Health Demonstrates Knowledge of Healthy Coping Mechanisms Available Cooperate/ Participate in Plan Progression Toward Outcome/Goals - Progressing Coping Progression Toward Outcome/Goals - Progressing Psychosocial DVT Prophylaxis- Improve/Maintain Start: 06/27/18 16:55 Freq: QSHIFT Status: Active Target: Protocol: Activity Type Activity Date Activity User E-Sign Co-Sign Detail Recorded Client Recorded Date Recorded By Document 07/12/18 10:00 [id number] 07/12/18 10:48 [id number] 07/12/18 10:00 PMRU Outcome: DVT Prophylaxis Outcome/Goals Remains Free of DVT Complies with DVT Prophylaxis /Treatment Demonstrates Knowledge of DVT Prevention/ Treatment Progression Toward Outcome/Goals Progressing Outcome/Goals Met Comment gabby wrap to l leg Discharge Planning - Improve/Maintain Start: 06/27/18 16:55 Freq: DAILY Status: Active Target: Protocol: Activity Type Activity Date Activity User E-Sign Co-Sign Detail Recorded Client Recorded Date Recorded By Document 07/12/18 04:50 [id number] 07/12/18 04:50 [id number] 07/12/18 04:50 PMRU Outcome: Discharge Planning Update Patient Family No Outcome/Goals Demonstrates Understanding of Discharge Plan Progression Toward Outcome/Goals Progressing Pain/Comfort- Improve/Maintain Start: 12/23/18 16:55 Freq: QSHIFT Status: Active Target: Protocol: Activity Type Activity Date Activity User E-Sign Co-Sign Detail Recorded Client Recorded Date Recorded By Document 07/12/18 10:00 [id number] 07/12/18 10:48 [id number] 07/12/18 10:00 PMRU Outcome: Pain/Comfort Outcome/Goals Demonstrates Knowledge and Use of Available Comfort Measures Achieves Acceptable Comfort/Pain Level as Determined by Patient/Condit Maintain Comfort Level Allowing Patient to Fully Participate in Rehab Progression Toward Outcome/Goals Progressing Outcome/Goals Met Comment repositioning, pain medication given Skin- Improve/Maintain Start: 06/27/18 16:55 Freq: QSHIFT Status: Active Target: Protocol: Activity Type Activity Date Activity User E-Sign Co-Sign Detail Recorded Client Recorded Date Recorded By Document 07/12/18 10:00 [id number] 07/12/18 10:48 [id number] 07/12/18 10:00 PMRU Outcome: Skin Skin Risk Level Medium Skin Orders Dressing Change Spenco Boots Heels Off Bed Outcome/Goals Maintain/ Improve Skin Intergrity Surgical Incisions Healing Progression Toward Outcome/Goals Progressing Medicine Note: Length of Stay: 2 days Anticipated Discharge Destination: Home Tentative Discharge Date: 07/15/18 Discharged to: Home
[2018-07-13 13:38] LABS: Calcium 9.1 mg/dL (8.6-10.3); EGFR Non-African American 50.5 (>60); Potassium 4.1 mmol/L (3.5-5.0)
[2018-07-13] MEDS: Ondansetron ODT TAB* 4 MG PO PRN (17:56)
--- NOTE | 2018-07-13 19:47 | PN ---
Progress Note Date of Service: 07/13/18 Note: SUGEY Thao AARONJOSÉ LUIS was visited. Therapy notes read and reviewed. He was discussed in interdisciplinary team rounds. Appreciate hospitalist note. His BNP is staying around baseline. Current Medications: Active Medications Generic Name Dose Route Start Last Admin Trade Name Freq PRN Reason Stop Dose Admin Acetaminophen 650 mg 06/27/18 15:08 07/13/18 02:12 Tylenol Tab* PO 650 mg Q6H PRN Administration FEVER/PAIN Hydrocodone Bitart/Acetaminophen 1 tab 06/28/18 07:04 07/01/18 20:27 [place] 5-325 Tab* PO 1 tab Q4H PRN Administration PAIN Hydrocodone Bitart/Acetaminophen 2 tab 06/29/18 13:16 07/13/18 09:00 [place] 5-325 Tab* PO 2 tab Q4H PRN Administration PAIN - SEVERE Albuterol 2 puff 06/27/18 15:23 Ventolin Hfa Inhaler* INH Q6H PRN SOB/WHEEZING Alprazolam 0.5 mg 07/09/18 09:00 07/13/18 08:59 Xanax Tab* PO 0.5 mg BID EVELIO Administration Aspirin 81 mg 06/27/18 21:00 07/12/18 20:45 Aspirin Ec Tab* PO 81 mg 2100 EVELIO Administration Bupropion HCl 150 mg 06/28/18 09:00 07/13/18 08:58 Wellbutrin Xl * PO 150 mg DAILY EVELIO Administration Protocol Carbidopa/Levodopa 1 tab 06/27/18 15:29 07/13/18 02:21 Sinemet 25/100 Tab(*) PO 1 tab BID PRN Administration Restless Legs Clopidogrel Bisulfate 75 mg 06/28/18 09:00 07/13/18 08:59 Plavix Tab* PO 75 mg DAILY EVELIO Administration Cyclobenzaprine HCl 10 mg 07/10/18 16:02 Flexeril Tab* PO TID PRN MUSCLE SPASMS Docusate Sodium 100 mg 06/27/18 21:00 07/13/18 08:59 Colace Cap* PO 100 mg BID EVELIO Administration Enalapril Maleate 5 mg 06/27/18 18:00 07/13/18 18:43 Vasotec Tab* PO 5 mg 1800 EVELIO Administration Enalapril Maleate 10 mg 06/28/18 09:00 07/13/18 08:58 Vasotec Tab* PO 10 mg 0900 EVELIO Administration Heparin Sodium (Porcine) 5,000 units 06/27/18 22:00 07/13/18 16:03 Heparin Vial(*) SUBCUT 5,000 units Q8HR EVELIO Administration Hydroxyzine HCl 25 mg 06/27/18 15:27 07/11/18 20:44 Atarax Tab* PO 25 mg Q6H PRN Administration itch Levothyroxine Sodium 150 mcg 06/28/18 06:00 07/13/18 07:04 Synthroid Tab* PO 150 mcg DAILY@0600 EVELIO Administration Magnesium Hydroxide 30 ml 07/02/18 19:37 Milk Of Magnesia Liq* PO Q6H PRN CONSTIPATION Metoprolol Succinate 25 mg 06/28/18 09:00 07/13/18 08:59 Toprol Xl Tab* PO 25 mg DAILY EVELIO Administration Mometasone Furoate 2 puff 06/27/18 18:00 07/12/18 18:47 Asmanex 220 Mcg Mdi * INH 2 puff QPM EVELIO Administration Ondansetron HCl 4 mg 06/29/18 13:16 07/13/18 17:56 Zofran Odt Tab* PO 4 mg Q6H PRN Administration NAUSEA Pantoprazole Sodium 40 mg 06/27/18 21:00 07/12/18 20:44 Protonix Tab (Nf) PO 40 mg 2100 EVELIO Administration Polyethylene Glycol/Electrolytes 17 gm 07/02/18 19:38 Miralax* PO DAILY PRN CONSTIPATION Senna 2 tab 06/27/18 15:08 06/30/18 21:55 Senokot Tab* PO 2 tab BEDTIME PRN Administration CONSTIPATION Torsemide 10 mg 07/13/18 09:00 07/13/18 08:58 Demadex* PO 10 mg DAILY EVELIO Administration Vital Signs: Vital Signs Temp Pulse Resp BP Pulse Ox 97.6 F 62 20 136/74 97 07/13/18 16:01 07/13/18 16:01 07/13/18 19:07 07/13/18 16:01 07/13/18 19:11 Lab Results: Laboratory Results - last 24 hr 07/13/18 07/13/18 13:12 13:12 Sodium 137 Potassium 4.1 Chloride 103 Carbon Dioxide 25 Anion Gap 9 BUN 27 H Creatinine 1.35 H Est GFR ( Amer) 61.1 Est GFR (Non-Af Amer) 50.5 BUN/Creatinine Ratio 20.0 Glucose 124 H Calcium 9.1 B-Natriuretic Peptide 442 H Exam: GENERAL: Alert and appropriate LUNGS: Clear to auscultation bilaterally HEART: regular rate and rhythm ABDOMEN: Soft, +BS, non-tender, non-distended EXTREMITIES: 2+ edema, both feet and legs. Dorsalis Pedis pulse present in right foot. NEUROLOGIC: Able to move a 4 extremities. Right leg a little weak. Normal sensation. Assessment/Plan: 1. Critical limb Ischemia, right foot: PT/OT. WBAT. Plavix/ASA, S/P bypass. Follow up with surgeon 07/20/18 2. Atrial Fibrillation: Pacemaker. Toprol XL 3. Edema: Chava Wrap, Demadex. 4. Possible CHF: BNP ordered for tomorrow. Echo pending. 5. GERD/GI Bleed: PPI 6. DVT Prophylaxis: Heparin 7. Advanced Directives: Full Code 8. Fasciotomy: Alginate dressing, follow up with vascular surgeon 9. Anxiety/Panic Attacks: Xanax BID 07/13/18 19:48
[2018-07-13] MEDS: CMC:Pantoprazole TAB (NF) 40 MG TAB PO SCH (20:36)
[2018-07-13] MEDS: Aspirin EC TAB* 81 MG TAB.EC PO SCH (20:36)
[2018-07-13] MEDS: Mometasone 220 MCG MDI INH SCH (21:05)
[2018-07-13] MEDS: hydrOXYzine HCL TAB* 25 MG PO PRN (23:00)
[2018-07-14] MEDS: Carbidopa/Levodop 25/100 MG TAB(*) PO PRN (01:52)
[2018-07-14] MEDS: HYDROcodone/ACETAMIN 5-325 MG* 1 TAB PO PRN ×3 (01:52→20:20)
[2018-07-14] MEDS: Levothyroxine TAB* 150 MCG TAB PO SCH (06:05)
[2018-07-14] MEDS: Heparin VIAL(*) 5000 UNITS/ML VIAL (FIVE THOUSAND) SUBCUT SCH ×3 (06:05→21:28)
[2018-07-14] MEDS: BuPROPion XL* 150 MG TAB.XL PO SCH (08:05)
[2018-07-14] MEDS: ALPRAZolam TAB* 0.5 MG PO SCH ×2 (08:05→20:19)
[2018-07-14] MEDS: Clopidogrel TAB* 75 MG PO SCH (08:06)
[2018-07-14] MEDS: Docusate CAP* 100 MG PO SCH ×2 (08:06→20:20)
[2018-07-14] MEDS: Enalapril TAB* 5 MG PO SCH ×2 (08:07→17:26)
[2018-07-14] MEDS: Torsemide TAB* 20 MG PO SCH (08:08)
[2018-07-14] MEDS: Metoprolol Succinate XL TAB* 25 MG PO SCH (08:08)
[2018-07-14] MEDS: Ondansetron ODT TAB* 4 MG PO PRN ×2 (08:19→17:14)
[2018-07-14] MEDS: Acetaminophen TAB* 325 MG PO PRN (18:20)
--- NOTE | 2018-07-14 19:17 | PN ---
Progress Note Date of Service: 07/14/18 Note: SUGEY BELL was visited. Therapy notes read and reviewed. He is anxious about his discharge tomorrow and about seeing a surgeon in the wound clinic. He is walking fairly well. He still has pain in the knee Current Medications: Active Medications Generic Name Dose Route Start Last Admin Trade Name Freq PRN Reason Stop Dose Admin Acetaminophen 650 mg 06/27/18 15:08 07/14/18 18:20 Tylenol Tab* PO 650 mg Q6H PRN Administration FEVER/PAIN Hydrocodone Bitart/Acetaminophen 1 tab 06/28/18 07:04 07/14/18 01:52 [place] 5-325 Tab* PO 1 tab Q4H PRN Administration PAIN Hydrocodone Bitart/Acetaminophen 2 tab 06/29/18 13:16 07/14/18 08:17 [place] 5-325 Tab* PO 2 tab Q4H PRN Administration PAIN - SEVERE Albuterol 2 puff 06/27/18 15:23 Ventolin Hfa Inhaler* INH Q6H PRN SOB/WHEEZING Alprazolam 0.5 mg 07/09/18 09:00 07/14/18 08:05 Xanax Tab* PO 0.5 mg BID EVELIO Administration Aspirin 81 mg 06/27/18 21:00 07/13/18 20:36 Aspirin Ec Tab* PO 81 mg 2100 EVELIO Administration Bupropion HCl 150 mg 06/28/18 09:00 07/14/18 08:05 Wellbutrin Xl * PO 150 mg DAILY EVELIO Administration Protocol Carbidopa/Levodopa 1 tab 06/27/18 15:29 07/14/18 01:52 Sinemet 25/100 Tab(*) PO 1 tab BID PRN Administration Restless Legs Clopidogrel Bisulfate 75 mg 06/28/18 09:00 07/14/18 08:06 Plavix Tab* PO 75 mg DAILY EVELIO Administration Cyclobenzaprine HCl 10 mg 07/10/18 16:02 Flexeril Tab* PO TID PRN MUSCLE SPASMS Docusate Sodium 100 mg 06/27/18 21:00 07/14/18 08:06 Colace Cap* PO 100 mg BID EVELIO Administration Enalapril Maleate 5 mg 06/27/18 18:00 07/14/18 17:26 Vasotec Tab* PO 5 mg 1800 VEELIO Administration Enalapril Maleate 10 mg 06/28/18 09:00 07/14/18 08:07 Vasotec Tab* PO 10 mg 0900 EVELIO Administration Heparin Sodium (Porcine) 5,000 units 06/27/18 22:00 07/14/18 14:24 Heparin Vial(*) SUBCUT 5,000 units Q8HR EVELIO Administration Hydroxyzine HCl 25 mg 06/27/18 15:27 07/13/18 23:00 Atarax Tab* PO 25 mg Q6H PRN Administration itch Levothyroxine Sodium 150 mcg 06/28/18 06:00 07/14/18 06:05 Synthroid Tab* PO 150 mcg DAILY@0600 EVELIO Administration Magnesium Hydroxide 30 ml 07/02/18 19:37 Milk Of Magnesia Liq* PO Q6H PRN CONSTIPATION Metoprolol Succinate 25 mg 06/28/18 09:00 07/14/18 08:08 Toprol Xl Tab* PO 25 mg DAILY EVELIO Administration Mometasone Furoate 2 puff 06/27/18 18:00 07/13/18 21:05 Asmanex 220 Mcg Mdi * INH 2 puff QPM EVELIO Administration Ondansetron HCl 4 mg 06/29/18 13:16 07/14/18 17:14 Zofran Odt Tab* PO 4 mg Q6H PRN Administration NAUSEA Pantoprazole Sodium 40 mg 06/27/18 21:00 07/13/18 20:36 Protonix Tab (Nf) PO 40 mg 2100 EVELIO Administration Polyethylene Glycol/Electrolytes 17 gm 07/02/18 19:38 Miralax* PO DAILY PRN CONSTIPATION Senna 2 tab 06/27/18 15:08 06/30/18 21:55 Senokot Tab* PO 2 tab BEDTIME PRN Administration CONSTIPATION Torsemide 10 mg 07/13/18 09:00 07/14/18 08:08 Demadex* PO 10 mg DAILY EVELIO Administration Vital Signs: Vital Signs Temp Pulse Resp BP Pulse Ox 98.3 F 61 19 118/69 97 07/14/18 15:51 07/14/18 15:51 07/14/18 19:07 07/14/18 15:51 07/14/18 16:37 Exam: GENERAL: Alert and appropriate LUNGS: Clear to auscultation bilaterally HEART: regular rate and rhythm ABDOMEN: Soft, +BS, non-tender, non-distended EXTREMITIES: 2+ edema, both feet and legs. Dorsalis Pedis pulse present in right foot. NEUROLOGIC: Able to move a 4 extremities. Right leg a little weak. Normal sensation. Assessment/Plan: 1. Critical limb Ischemia, right foot: PT/OT. WBAT. Plavix/ASA, S/P bypass. Follow up with surgeon 07/20/18 2. Atrial Fibrillation: Pacemaker. Toprol XL 3. Edema: Chava Wrap, Demadex. 4. Possible CHF: BNP at baseline. Can't see that Echo was done. 5. GERD/GI Bleed: PPI 6. DVT Prophylaxis: Heparin 7. Advanced Directives: Full Code 8. Fasciotomy: Alginate dressing, follow up with vascular surgeon 9. Anxiety/Panic Attacks: Xanax BID 07/14/18 19:17
[2018-07-14] MEDS: Mometasone 220 MCG MDI INH SCH (19:30)
[2018-07-14] MEDS: CMC:Pantoprazole TAB (NF) 40 MG TAB PO SCH (20:19)
[2018-07-14] MEDS: hydrOXYzine HCL TAB* 25 MG PO PRN (20:20)
[2018-07-14] MEDS: Aspirin EC TAB* 81 MG TAB.EC PO SCH (20:20)
[2018-07-15] MEDS: HYDROcodone/ACETAMIN 5-325 MG* 1 TAB PO PRN ×3 (00:04→15:57)
[2018-07-15] MEDS: Heparin VIAL(*) 5000 UNITS/ML VIAL (FIVE THOUSAND) SUBCUT SCH ×2 (05:07→14:17)
[2018-07-15] MEDS: Acetaminophen TAB* 325 MG PO PRN (05:08)
[2018-07-15] MEDS: Levothyroxine TAB* 150 MCG TAB PO SCH (05:08)
[2018-07-15] MEDS: Enalapril TAB* 5 MG PO SCH (09:52)
[2018-07-15] MEDS: Ondansetron ODT TAB* 4 MG PO PRN (09:52)
[2018-07-15] MEDS: Torsemide TAB* 20 MG PO SCH (09:53)
[2018-07-15] MEDS: Metoprolol Succinate XL TAB* 25 MG PO SCH (09:53)
[2018-07-15] MEDS: Clopidogrel TAB* 75 MG PO SCH (09:53)
[2018-07-15] MEDS: Docusate CAP* 100 MG PO SCH (09:53)
[2018-07-15] MEDS: BuPROPion XL* 150 MG TAB.XL PO SCH (09:53)
[2018-07-15] MEDS: ALPRAZolam TAB* 0.5 MG PO SCH (09:54)
[2018-07-15 15:26] VITALS: BP 123/69
--- NOTE | 2018-07-16 16:53 | DS ---
CC: Dr. Do Oquendo * DISCHARGE SUMMARY: DATE OF ADMISSION: 06/27/18 DATE OF DISCHARGE: 07/15/18 DISCHARGE DIAGNOSES: 1. Critical limb ischemia, right leg. 2. 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 3. Status post fasciotomy. 4. Atrial fibrillation. 5. History of gastrointestinal bleed. 6. Gastroesophageal reflux disease. 7. Status post pacemaker placement. 8. Sleep apnea. 9. Depression. 10. Neurogenic claudication. HISTORY OF PRESENT ILLNESS AND HOSPITAL COURSE: For complete history of the events leading up to his rehab stay, please see the history and physical dictated by me on 06/27/18. While on the rehab unit, immediately after he worked with Physical Therapy, the patient reported a great deal of pain in his foot and calf. A venous Doppler was done of his right lower extremity, which did not show any sign of a deep vein thrombosis. He also had a Doppler ultrasound showing that the graft was patent and there was blood flow to the foot. It did show decreased systolic velocities below the level of the graft. The patient's wound remained tenuous. A wound center consult was obtained and they recommended stopping his wound VAC. The patient followed up with his vascular surgeon. The vascular surgeon thought the graft was holding and recommended no debridement to the wounds on his leg, but continued wet-to-dry dressings. The patient had another episode on 07/11/18 where he felt like his foot was hurting. He had another venous Doppler again showing no evidence of a DVT and he had another duplex scan again showing the graft was patent. At his surgeon's request, because of lower extremity swelling, hospitalist consult was obtained to rule out congestive heart failure. His BNP was drawn 3 times and was felt to be at his baseline. His Demadex dose had been increased prior to his seeing the surgeon to help deal with his leg swelling. Unfortunately, his renal function worsened on the increased dose of Demadex and his Demadex dose was lowered back down to 10 mg daily. The patient worked with Physical Therapy and Occupational Therapy while on the rehab unit. He made good gains with both disciplines. With physical therapy, at the time of admission, the patient required min assist to transfer. He was able to ambulate with min assist of 2 people about 35 feet. With occupational therapy, at the time of admission, the patient required supervision for upper body dressing, total assistance for body dressing, max assist of 2 people for toileting, mod assist of 2 people to use the urinal, and mod assist of 2 people to do toilet transfers. By the time of discharge, he was independent in transfers, independent in ambulating 150 feet, independent in toileting and toilet transfers. He has still required some assistance with lower body dressing. His came for family training. She was confident in taking him home. The patient was discharged home on 07/15/18. DISCHARGE DIET: Regular. DISCHARGE MEDICATIONS: 1. Ventolin inhaler 2 puffs every 6 hours as needed. 2. Xanax 0.5 mg twice daily. 3. Aspirin 81 mg daily. 4. Wellbutrin XL 150 mg daily. 5. Sinemet 25/100 one tablet twice daily as needed for restless legs. 6. Plavix 75 mg orally daily. 7. Flexeril 10 mg 3 times a day as needed. 8. Vasotec 5 mg at 6 p.m., 10 mg at 9 a.m. 9. [place] 5/325 one to two tablets every 4 hours as needed. 10. Atarax or hydroxyzine 25 mg every 6 hours as needed for anxiety. 11. Synthroid 150 mcg daily. 12. Toprol-XL 25 mg daily. 13. Asmanex 220 mcg metered-dose inhaler 2 puffs every evening. 14. Protonix 40 mg daily. 15. Demadex or torsemide 10 mg daily. 16. Senokot 2 tablets at bedtime as needed. SERVICES AFTER DISCHARGE: Through the visiting nursing service, he will have home nursing to do dressing changes at home, physical therapy. He will also follow up with Dr. V[facility]ira [facility] and his primary care doctor, Dr. Do Oquendo, 07/30/18. He also will see his vascular surgeon, 07/21/18. [id number]/[facility] #: [id number] CONNIE
== END 2018-07-15 16:50 | disposition home health service (06) | DRG 949 ==
LOC: PMRU 06-27 14:38
PROVIDERS: ADMIT Physical Medicine & Rehabilitation; ATTEND Physical Medicine & Rehabilitation
PROC: F07Z5ZZ Bed Mobility Treatment (ICD-10-PCS; principal; 2018-06-27)
PROC: F07Z9ZZ Gait Training/Functional Ambulation Treatment (ICD-10-PCS; 2018-06-27)
PROC: F07Z8ZZ Transfer Training Treatment (ICD-10-PCS; 2018-06-27)
PROC: F07Z4ZZ Wheelchair Mobility Treatment (ICD-10-PCS; 2018-06-27)
PROC: F08Z0ZZ Bathing/Showering Techniques Treatment (ICD-10-PCS; 2018-06-27)
PROC: F08Z1ZZ Dressing Techniques Treatment (ICD-10-PCS; 2018-06-27)
PROC: F08Z3ZZ Feeding/Eating Treatment (ICD-10-PCS; 2018-06-27)
DX: Z48.812 Encounter for surgical aftercare following surgery on the circulatory system (principal); I50.30 Unspecified diastolic (congestive) heart failure; I99.8 Other disorder of circulatory system; I48.91 Unspecified atrial fibrillation; K21.9 Gastro-esophageal reflux disease without esophagitis; G47.30 Sleep apnea, unspecified; F32.9 Major depressive disorder, single episode, unspecified; M48.062 Spinal stenosis, lumbar region with neurogenic claudication; F41.0 Panic disorder [episodic paroxysmal anxiety]; Z95.0 Presence of cardiac pacemaker; Z79.02 Long term (current) use of antithrombotics/antiplatelets; Z79.82 Long term (current) use of aspirin; Z79.899 Other long term (current) drug therapy; Z88.8 Allergy status to other drugs, medicaments and biological substances; S81.011D Laceration without foreign body, right knee, subsequent encounter; W18.30XD Fall on same level, unspecified, subsequent encounter; M25.561 Pain in right knee; Z79.1 Long term (current) use of non-steroidal anti-inflammatories (NSAID)
CPT/HCPCS: 36415; 80048; 80053; 83880; 85025; 93306; 94640; A9270-GY; J1644

== ENCOUNTER 2018-07-19 18:19 | Emergency (ER) | payer MEDICARE, BC ==
--- NOTE | 2018-07-19 19:24 | ED ---
Neurological HPI - HPI Summary HPI Summary: An 82 y/o male presents to [facility] with a chief complaint of a head injury post fall on 07/19/18. The patient is not sure why he fell. Per triage note, he has a lump with dry blood on the back of his head. He denies LOC or a headache. He rates his pain as a 2/10. He is on plavix. He also c/o left shoulder pain. - History of Current Complaint Chief Complaint: EDHeadInjury Stated Complaint: FALL/HEAD INJURY Time Seen by Provider: 07/19/18 18:54 Onset/Duration: Sudden Onset, Started hours ago, Still Present Timing: Constant Onset Severity: Mild Current Severity: Mild Pain Intensity: 2 Pain Scale Used: 0-10 Numeric Aggravating: Nothing Alleviating: Nothing Associated Signs and Symptoms: Negative: Headache, Loss of Consciousness, Fever - Additional Pertinent History Primary Care Physician: ELENA - Allergy/Home Medications Allergies/Adverse Reactions: Allergies Allergy/AdvReac Type Severity Reaction Status Date / Time amoxicillin [From Augmentin] Allergy Nausea And Verified 07/19/18 18:27 Vomiting cefadroxil [From Duricef] Allergy GI Upset Verified 07/19/18 18:27 cephalexin Allergy Nausea And Verified 07/19/18 18:27 Vomiting clavulanic acid Allergy Nausea And Verified 07/19/18 18:27 [From Augmentin] Vomiting metolazone Allergy See Comment Verified 07/19/18 18:27 PMH/Surg Hx/FS Hx/Imm Hx Endocrine/Hematology History: Reports: Hx Anticoagulant Therapy - Xarelto, Hx Thyroid Disease - hypothyroid, Hx Anemia Denies: Hx Diabetes Cardiovascular History: Reports: Hx Aneurysm - multiple including AAA, Hx Congestive Heart Failure, Hx Coronary Artery Disease, Hx Hypertension, Hx Pacemaker/ICD - 9/9/15, Hx Peripheral Vascular Disease, Other Cardiovascular Problems/Disorders - right groin aneurysm Respiratory History: Reports: Hx Sleep Apnea - CPAP 8cm Denies: Hx Asthma, Hx Chronic Obstructive Pulmonary Disease (COPD) GI History: Reports: Hx Hiatal Hernia - bulge but no pain or other symptoms Denies: Hx Ulcer Comment Only: Hx Gastrointestinal Bleed - this admission History: Denies: Hx Renal Disease Musculoskeletal History: Reports: Hx Back Problems Denies: Hx Arthritis, Hx Rheumatoid Arthritis, Hx Osteoporosis Sensory History: Reports: Hx Contacts or Glasses, Hx Macular Degeneration - R eye Denies: Hx Hearing Aid Opthamlomology History: Reports: Hx Contacts or Glasses, Hx Macular Degeneration - R eye Neurological History: Reports: Hx Migraine Denies: Hx Dementia, Hx Headaches, Hx Seizures, Hx Transient Ischemic Attacks (TIA) Psychiatric History: Reports: Hx Anxiety Denies: Hx Substance Abuse - Surgical History Surgery Procedure, Year, and Place: Abdominal aortic aneurysm repairs x4, [facility]. R aneurysm inguinal, [place]. Pacemaker placement, 06/2007, [facility] [place]; replaced 03/14/15. Right shoulder surgery. Gallbladder removed. Spinal fusion x , 2013, [facility]. Choleycystectomy, 11/2012, [facility] [place]. Right rotator cuff surgery, 09/2012, [facility] Hx Anesthesia Reactions: No Infectious Disease History: No Infectious Disease History: Denies: Hx Clostridium Difficile, Hx Hepatitis, Hx Human Immunodeficiency Virus (HIV), Hx of Known/Suspected MRSA, Hx Shingles, Hx Tuberculosis, Hx Known/ Suspected VRE, Hx Known/Suspected VRSA, History Other Infectious Disease, Traveled Outside the [place] in Last 30 Days - Family History Known Family History: Positive: Cardiac Disease Family History: No FHx anesthesia reaction - Social History Alcohol Use: None Hx Substance Use: No Substance Use Type: Reports: None Hx Tobacco Use: Yes Smoking Status (MU): Former Smoker Review of Systems Negative: Fever Positive: Arthralgia - left shoulder pain Neurological: Negative - LOC, Other - Positive: fall, unsure why he fell, head injury on the back of his head Negative: Headache All Other Systems Reviewed And Are Negative: Yes Physical Exam - Summary Physical Exam Summary: Appearance: The patient is well-nourished in no acute distress and in no acute pain. Skin: The skin is warm and dry and skin color reflects adequate perfusion. HEENT: Encephalo hematoma on occiput with a laceration. The pupils are equal and reactive. The conjunctivae are clear and without drainage. Nares are patent and without drainage. Mouth reveals moist mucous membranes and the throat is without erythema and exudate. The external ears are intact. The ear canals are patent and without drainage. The tympanic membranes are intact. Neck: The neck is supple with full range of motion and non-tender. There are no carotid bruits. There is no neck vein distension. Respiratory: Chest is non-tender. Lungs are clear to auscultation and breath sounds are symmetrical and equal. Cardiovascular: Heart is regular rate and rhythm. There is no murmur or rub auscultated. There is no peripheral edema and pulses are symmetrical and equal. Abdomen: The abdomen is soft and non-tender. There are normal bowel sounds heard in all four quadrants and there is no organomegaly palpated. Musculoskeletal: There is no back tenderness noted. Extremities are non-tender with full range of motion. There is good capillary refill. There is no peripheral edema or calf tenderness elicited. Neurological: Encephalo hematoma on occiput with a laceration. Patient is alert and oriented to person, place and time. The patient has symmetrical motor strength in all four extremities. Cranial nerves are grossly intact. Deep tendon reflexes are symmetrical and equal in all four extremities. Psychiatric: The patient has an appropriate affect and does not exhibit any anxiety or depression. Triage Information Reviewed: Yes Vital Signs On Initial Exam: Initial Vitals Temp Pulse Resp BP Pulse Ox 98.4 F 76 20 156/99 99 07/19/18 18:22 07/19/18 18:22 07/19/18 18:22 07/19/18 18:22 07/19/18 18:22 Vital Signs Reviewed: Yes - Gael Coma Scale Best Eye Response: 4 - Spontaneous Best Motor Response: 6 - Obeys Commands Best Verbal Response: 5 - Oriented Coma Scale Total: 15 Diagnostics - Vital Signs Vital Signs Temp Pulse Resp BP Pulse Ox 07/19/18 18:22 98.4 F 76 20 156/99 99 - Laboratory Lab Statement: Any lab studies that have been ordered have been reviewed, and results considered in the medical decision making process. - CT Brain CT Interpretation Completed By: Radiologist Summary of CT Findings: 1. Left frontal gyral density measuring 1.5 x 1.1 cm representing. intraparenchymal hemorrhage. 2. Small left temporal lobe intraparenchymal hemorrhage measuring 6 x 4 mm. 3. Small left frontal subarachnoid hemorrhage. ED provider has reviewed this imaging report. Re-Evaluation - Re-Evaluation First Eval Re-Evaluation Time: 21:46 Change: Unchanged Comment: Informed patient about transfer. Course/Dx - Course Course Of Treatment: Mr. Kendall had a mechanical fall this evening and hit the back of his head. He sustained a cephalohematoma and comes in complaining of a mild frontal headache. He was nontoxic in appearance, his vitals were stable and his neurological exam was grossly intact. This CT scan was obtained and showed a small frontal contusion, a small subarachnoid hemorrhage and a very small left temporal contusion. Although her neurosurgeon Dr. Foster was contacted as well as our hospitalist Dr. Khan who recommended transfer as the patient is currently on Plavix and has had recent surgery at [facility] by vascular surgeons. The Plavix will need to be stopped and this should be monitored by the vascular surgeons which we do not have here. Initially the patient's blood pressures were running in the 140s over 80s but during the transfer procedure his blood pressure began to increase and he was started on a Cardene drip. We're attempting to keep his blood pressure in the 140s over the mid 80s range. [facility] was contacted and the grants specialist Dr. Chicas accepted transfer. - Diagnoses Provider Diagnoses: Intracranial hemorrhage - Physician Notifications Discussed Care Of Patient With: Krista Egan Time Discussed With Above Provider: 20:30 Instructed by Provider To: Will See In ED - Critical Care Time Critical Care Time: 30-74 min Discharge - Sign-Out/Discharge Documenting (check all that apply): Patient Departure - admit - Discharge Plan Condition: Fair Disposition: TRANS HIGHER LVL OF CARE FAC Referrals: Do Oquendo MD [Primary Care Provider] - - Billing Disposition and Condition Condition: FAIR Disposition: Trans Higher Lvl of Care Fac - Attestation Statements Document Initiated by Conner: Yes Documenting Scribe: Deonte Mendenhall Provider For Whom Conner is Documenting (Include Credential): Herb Mario MD Scribjennifer Attestation: Deonte Beebe, scribed for Herb Mario MD on 07/19/18 at 2241. Scribe Documentation Reviewed: Yes Provider Attestation: The documentation as recorded by the Deonte clark accurately reflects the service I personally performed and the decisions made by , Herb Mario MD Status of Scribe Document: Viewed Consult Consult: At 20:35 - Discussed case with lupe Santiago, who recommends to continue with ICU observation and does not recommend Kcentra or Keppra. At 21:17 - Dr. Dunbar, neuro, recommended transfer.
[2018-07-19] MEDS ORDERED: levETIRAcetam IV* 500 MG in NS 0.9% 100 ML* 100 ML IVPB ONE (20:30)
[2018-07-19] MEDS ORDERED: niCARdipine 0.1MG/ML IVPREMIX* 20 MG/200 ML BAG IV ONE (22:24)
[2018-07-20 00:54] VITALS: BP 115/65
== END 2018-07-20 00:54 | disposition short-term general hospital (02) ==
LOC: ED 18:19
DX: S06.6X0A Traumatic subarachnoid hemorrhage without loss of consciousness, initial encounter (principal); W19.XXXA Unspecified fall, initial encounter; Y92.9 Unspecified place or not applicable; M25.512 Pain in left shoulder; I25.10 Atherosclerotic heart disease of native coronary artery without angina pectoris; I10 Essential (primary) hypertension; Z95.810 Presence of automatic (implantable) cardiac defibrillator; Z79.01 Long term (current) use of anticoagulants; Z88.1 Allergy status to other antibiotic agents; Z88.0 Allergy status to penicillin; Z88.8 Allergy status to other drugs, medicaments and biological substances; Z87.891 Personal history of nicotine dependence
CPT/HCPCS: 70450; 99284

== ENCOUNTER 2018-07-27 09:06 | Inpatient (IN) | payer MEDICARE, BC ==
[2018-07-27] MEDS ORDERED: Senna TAB PO PRN (16:51)
[2018-07-27] MEDS ORDERED: Albuterol HFA INHALER* 8 gm MDI INH PRN (17:12)
[2018-07-27] MEDS: hydrOXYzine HCL TAB* 25 MG PO PRN (18:46)
[2018-07-27] MEDS: Enalapril TAB* 5 MG PO SCH (18:46)
[2018-07-27] MEDS: HYDROcodone/ACETAMIN 5-325 MG* 1 TAB PO PRN ×2 (18:47→22:32)
[2018-07-27] MEDS: Mometasone 220 MCG MDI INH SCH (18:54)
[2018-07-27] MEDS ORDERED: Piperacillin/Tazobactam VIAL*) 3.375 GM/15 ML VIAL IVPB SCH (19:00)
[2018-07-27] MEDS: COLLAGENASE 250 MG/GM TOPICAL SCH (19:42)
[2018-07-27] MEDS: Docusate CAP* 100 MG PO SCH (19:47)
[2018-07-27] MEDS: ALPRAZolam TAB* 0.5 MG PO PRN (20:21)
[2018-07-27] MEDS: Carbidopa/Levodop 25/100 MG TAB(*) PO PRN (20:22)
--- NOTE | 2018-07-27 21:04 | HP ---
ADMISSION HISTORY AND PHYSICAL: DATE OF ADMISSION: 07/27/18 CHIEF COMPLAINT: Subarachnoid hemorrhage. HISTORY OF PRESENT ILLNESS: Sameer Kendall is an 82-year-old white male. He has a medical history significant for atrial fibrillation. He had a GI bleed on Xarelto and no longer takes anticoagulation. He is on baby aspirin everyday and has had a pacemaker placed. He also has had an AAA and has undergone repair for that. On somewhere around 06/10/18, the patient fell and lacerated his right knee. He had a large hematoma on the right knee. He had an x-ray, but the x-ray did not show a fracture. About a week later, the patient developed large hematoma of his patella. He saw his primary care doctor, who sent him to the emergency room. In the emergency room, they were unable to detect pulses in his right leg even with a Doppler. The patient was sent to [facility] because he had critical limb ischemia of the right leg. While at [facility], he underwent a right fem- to-peroneal bypass. The patient was on rehab on the acute rehab service under my care from 06/27/18 until 07/15/18. He was discharged home 07/15/18. On 07/19/18, the patient was getting out of his car and lost his balance while he tried to put weight on his right leg. He fell to the ground and hit his head. He was brought initially to [facility]. He had a CAT scan of his brain showing a small subarachnoid hemorrhage. The emergency department want to hold his Plavix, but because of his recent bypass, they felt it necessary to transport him to [facility] to be monitored there. The patient was admitted to [facility]. He was evaluated by Neurosurgery. No intervention was indicated. His Plavix was held for 1 week. He had an infectious disease consult regarding the wound on his right lower extremity, which was difficult while in the rehab unit and nonhealing. The patient had an infectious disease consult. Cultures were obtained. He was started on IV Zosyn. It was recommended that he stay on IV Zosyn for 3 weeks. The patient was transferred to inpatient rehab so that he might return to independent living after his medical problems. PAST MEDICAL HISTORY: Notable for the aforementioned atrial fibrillation, gastrointestinal bleed. He has a history of anxiety as well and normally takes Xanax for that. The patient also has a history of a pacemaker, sleep apnea, AAA , gastroesophageal reflux disease, spinal stenosis. He has undergone a spinal fusion. CURRENT MEDICATIONS: Include: 1. Aspirin. 2. Xanax. 3. Wellbutrin. 4. Sinemet for restless leg. 5. Plavix. 6. Vasotec. 7. Atarax. 8. Synthroid. 9. Toprol-XL. 10. Asmanex. 11. Protonix. 12. IV Zosyn. 13. Demadex. ALLERGIES: The patient has allergies to KEFLEX. SOCIAL HISTORY: He is a nonsmoker, nondrinker. He lives with his in an one- kenji house. He has a daughter who lives in [place], [place] and he spent some of the year there. He has one son living locally and another child in [place]. REVIEW OF SYSTEMS: Reports no current shortness of breath or chest pain. PHYSICAL EXAMINATION VITAL SIGNS: The patient's temperature is 97.4, blood pressure is 149/79, pulse 64, respirations 20. HEENT: His extraocular movements are intact. Tongue is midline. NECK: Supple. LUNGS: Sound clear to auscultation bilaterally. HEART: Sounds are regular. S1 and S2 were audible. ABDOMEN: Soft and nontender. EXTREMITIES: His right leg was examined. His suture line from his recent bypass surgery has come apart, but the wound looks clean. His dorsalis pedis pulse was palpable on the right foot. He had 2+ pitting edema on the right leg. His legs do appear less swollen than his last visit here. NEUROLOGIC: Sensation was intact. Muscle strength appeared to be 5/5 in both upper extremities. Right lower extremity appeared to be closer to 4/5. Left lower extremity was close to 5/5. FUNCTIONAL EXAM: He transfers with moderate amount of assistance. IMPRESSION: 1. Small subarachnoid hemorrhage. 2. Infected wound from recent right [id number] bypass on the right leg. PLAN/RECOMMENDATIONS: We are going to integrate him into a comprehensive and therapeutic rehab program: 1. Physical Therapy will work with the patient. They are going to work on functional transfer training, ambulation training with a walker. 2. Occupational Therapy will see the patient, work on activities of daily living including toileting and toilet transfers. 3. We are going to resume his Plavix tomorrow morning as it has been 1 week. 4. Because of his recent brain bleed, we are not going to use pharmaceutical DVT prophylaxis. We will continue to Chava wrap his legs. 5. Continue aspirin and Toprol for atrial fibrillation. 6. Continue IV antibiotics, IV Zosyn 4.5 g every 6 hours for infected wound. 7. Continue Protonix for history of GI bleed. 8. For anxiety, we will continue Xanax and Wellbutrin. 9. Local care to the right leg including Santyl and wet-to-dry dressing changes twice a day. 10. Synthroid for hypothyroidism. 11. Inhalers for COPD including Asmanex. 12. library services assistant will be closely involved to make sure that any services and equipment that the patient requires are in place prior to discharge. 13. Family training is appropriate. 14. Home with appropriate service. ESTIMATED LENGTH OF STAY: Ten days. [id number] #: [id number] CONNIE
[2018-07-27] MEDS: PIPERACILLIN IVPB SCH (21:21)
[2018-07-27] MEDS: TAZOBACTAM IVPB SCH (21:21)
[2018-07-27] MEDS: NS 0.9% IVPB SCH (21:21)
[2018-07-28] MEDS: Acetaminophen TAB* 325 MG PO PRN ×2 (00:20→15:31)
[2018-07-28] MEDS: TAZOBACTAM IVPB SCH ×2 (01:45→08:27)
[2018-07-28] MEDS: PIPERACILLIN IVPB SCH ×2 (01:45→08:27)
[2018-07-28] MEDS: NS 0.9% IVPB SCH ×2 (01:45→08:27)
[2018-07-28] MEDS: Levothyroxine TAB* 150 MCG TAB PO SCH (05:13)
[2018-07-28 05:26] LABS: ABS Basophils 0.2 10^3/ul (0-0.2); ABS Eosinophils 0.5 10^3/ul (0-0.6); ABS Lymphocytes 0.9 10^3/ul (1.0-4.8); ABS Monocytes 0.6 10^3/ul (0-0.8); ABS Neutrophils 4.1 10^3/ul (1.5-7.7); ABS Nucleated RBC 0 10^3/ul; Eosinophil % 7.8 %; Hematocrit 26 % (42-52); Hemoglobin 8.8 g/dl (14.0-18.0); Lymphocyte % 14.1 %; Mean Corpuscular HGB Conc 34 g/dl (31-36); Mean Corpuscular Hemoglobin 32 pg (27-31); Mean Corpuscular Volume 95 fL (80-94); Nucleated Red Blood Cells % 0.1; Platelet Count 176 10^3/ul (150-450); Red Blood Count 2.74 10^6/ul (4.00-5.40); Red Cell Distribution Width 15 % (10.5-15); White Blood Count 6.2 10^3/ul (3.5-10.8)
[2018-07-28 05:36] LABS: ALT < 3 U/L (7-52); AST 12 U/L (13-39); Albumin 2.8 g/dL (3.2-5.2); Albumin/Globulin Ratio 0.9 (1-3); Alkaline Phosphatase 54 U/L (34-104); Anion Gap 5 mmol/L (2-11); Blood Urea Nitrogen 17 mg/dL (6-24); CO2 Carbon Dioxide 26 mmol/L (22-32); Calcium 8.7 mg/dL (8.6-10.3); Chloride 108 mmol/L (101-111); Globulin 3.1 g/dL (2-4); Glucose 84 mg/dL (70-100); Potassium 3.9 mmol/L (3.5-5.0); Sodium 139 mmol/L (135-145); Total Protein 5.9 g/dL (6.4-8.9)
[2018-07-28] MEDS ORDERED: Pantoprazole TAB * 40 MG TAB PO SCH (09:00)
[2018-07-28] MEDS: Aspirin EC TAB* 81 MG TAB.EC PO SCH (09:22)
[2018-07-28] MEDS: Metoprolol Succinate XL TAB* 25 MG PO SCH (09:22)
[2018-07-28] MEDS: HYDROcodone/ACETAMIN 5-325 MG* 1 TAB PO PRN ×3 (09:23→18:36)
[2018-07-28] MEDS: ALPRAZolam TAB* 0.5 MG PO PRN (09:23)
[2018-07-28] MEDS: Clopidogrel TAB* 75 MG PO SCH (09:23)
[2018-07-28] MEDS: Docusate CAP* 100 MG PO SCH ×2 (09:24→20:19)
[2018-07-28] MEDS: Torsemide TAB* 20 MG PO SCH (09:26)
[2018-07-28] MEDS: Enalapril TAB* 5 MG PO SCH ×2 (09:26→17:43)
[2018-07-28] MEDS: BuPROPion XL* 150 MG TAB.XL PO SCH (09:26)
[2018-07-28] MEDS: COLLAGENASE 250 MG/GM TOPICAL SCH ×2 (11:00→20:41)
[2018-07-28] MEDS ORDERED: Zosyn per Pharmacy* NOTE FOLLOW UP SCH (13:00)
[2018-07-28] MEDS: Piperacillin/Tazobac ADVAN(*) 3.375 GM in NS 0.9% 100 ML* 100 ML IVPB SCH (16:29)
[2018-07-28] MEDS: Mometasone 220 MCG MDI INH SCH (18:38)
--- NOTE | 2018-07-28 19:20 | PN ---
Progress Note Date of Service: 07/28/18 Note: SUGEY Thao MAGENANTONIO was visited. Therapy notes read and reviewed. This am he woke up and a blood vessel in his right eye had ruptured. He has a hemorrhage in his eye but vision ok. This eye has macular degeneration according to his . He did ok with therapies. He seems down. Dr. Wright from [place] adjusted his Zosyn dose. He had a lot of pain last night and doses adjusted Current Medications: Active Medications Generic Name Dose Route Start Last Admin Trade Name Freq PRN Reason Stop Dose Admin Acetaminophen 650 mg 07/27/18 16:51 07/28/18 15:31 Tylenol Tab* PO 650 mg Q6H PRN Administration FEVER/PAIN Hydrocodone Bitart/Acetaminophen 1 tab 07/27/18 17:04 07/28/18 14:31 [place] 5-325 Tab* PO 1 tab Q4H PRN Administration PAIN - MODERATE TO SEVERE Hydrocodone Bitart/Acetaminophen 2 tab 07/28/18 17:39 07/28/18 18:36 [place] 5-325 Tab* PO 2 tab Q4H PRN Administration PAIN - SEVERE Albuterol 2 puff 07/27/18 17:12 Ventolin Hfa Inhaler* INH Q6H PRN SOB/WHEEZING Alprazolam 0.5 mg 07/27/18 16:59 07/28/18 09:23 Xanax Tab* PO 0.5 mg BID PRN Administration ANXIETY Aspirin 81 mg 07/28/18 09:00 07/28/18 09:22 Aspirin Ec Tab* PO 81 mg DAILY EVELIO Administration Bupropion HCl 150 mg 07/28/18 09:00 07/28/18 09:26 Wellbutrin Xl * PO 150 mg DAILY EVELIO Administration Carbidopa/Levodopa 1 tab 07/27/18 18:36 07/27/18 20:22 Sinemet 25/100 Tab(*) PO 1 tab BID PRN Administration restless legs Clopidogrel Bisulfate 75 mg 07/28/18 09:00 07/28/18 09:23 Plavix Tab* PO 75 mg DAILY EVELIO Administration Collagenase 1 applic 07/27/18 21:00 07/28/18 11:00 Santyl 250 Mg/Gm Oint* TOPICAL 1 applic BID EVELIO Administration Docusate Sodium 100 mg 07/27/18 21:00 07/28/18 09:24 Colace Cap* PO Not Given BID [facility] Enalapril Maleate 10 mg 07/28/18 09:00 07/28/18 09:26 Vasotec Tab* PO 10 mg DAILY EVELIO Administration Enalapril Maleate 5 mg 07/27/18 18:00 07/28/18 17:43 Vasotec Tab* PO 5 mg 1800 EVELIO Administration Heparin Sodium (Porcine) 1 ml 07/27/18 18:00 07/28/18 09:19 Heparin Flush Picc/Ml/Cvc(*) FLUSH 1 ml 0600,1800 EVELIO Administration Protocol Hydroxyzine HCl 25 mg 07/27/18 17:04 07/27/18 18:46 Atarax Tab* PO 25 mg Q6H PRN Administration ITCHING Piperacillin Sod/Tazobactam 100 mls @ 25 mls/hr 07/28/18 16:30 07/28/18 16:29 Sod 3.375 gm/ Sodium Chloride IVPB 25 mls/hr Q8H EVELIO Administration Levothyroxine Sodium 150 mcg 07/28/18 06:00 07/28/18 05:13 Synthroid Tab* PO 150 mcg DAILY@0600 [facility] Administration Metoprolol Succinate 25 mg 07/28/18 09:00 07/28/18 09:22 Toprol Xl Tab* PO 25 mg DAILY [facility] Administration Mometasone Furoate 2 puff 07/27/18 18:00 07/28/18 18:38 Asmanex 220 Mcg Mdi * INH 1 unit QPM [facility] Administration Ondansetron HCl 4 mg 07/28/18 09:41 Zofran Odt Tab* PO Q6H PRN NAUSEA Pantoprazole Sodium 40 mg 07/29/18 06:00 Protonix Tab* PO DAILY@0600 [facility] Pharmacy Consult 1 note 07/28/18 13:00 Zosyn Per Pharmacy* FOLLOW UP .ZOSYN PER PHARMACY [facility] Senna 2 tab 07/27/18 16:51 Senokot Tab* PO BEDTIME PRN CONSTIPATION Torsemide 10 mg 07/28/18 09:00 07/28/18 09:26 Demadex* PO 10 mg DAILY EVELIO Administration Vital Signs: Vital Signs Temp Pulse Resp BP Pulse Ox 98.9 F 66 16 137/76 76 07/28/18 15:30 07/28/18 15:30 07/28/18 18:36 07/28/18 15:30 07/28/18 15:30 Lab Results: Laboratory Results - last 24 hr 07/28/18 07/28/18 05:08 05:08 WBC 6.2 RBC 2.74 L Hgb 8.8 L Hct 26 L MCV 95 H MCH 32 H MCHC 34 RDW 15 Plt Count 176 MPV 7.0 L Neut % (Auto) 65.6 Lymph % (Auto) 14.1 [place] % (Auto) 9.7 Eos % (Auto) 7.8 Baso % (Auto) 2.8 Absolute Neuts (auto) 4.1 Absolute Lymphs (auto) 0.9 L Absolute Monos (auto) 0.6 Absolute Eos (auto) 0.5 Absolute Basos (auto) 0.2 Absolute Nucleated RBC 0 Nucleated RBC % 0.1 Sodium 139 Potassium 3.9 Chloride 108 Carbon Dioxide 26 Anion Gap 5 BUN 17 Creatinine 1.13 Est GFR ( Amer) 75.0 Est GFR (Non-Af Amer) 62.0 BUN/Creatinine Ratio 15.0 Glucose 84 Calcium 8.7 Total Bilirubin 0.70 AST 12 L ALT < 3 L Alkaline Phosphatase 54 Total Protein 5.9 L Albumin 2.8 L Globulin 3.1 Albumin/Globulin Ratio 0.9 L Exam: HEENT: Right eye with hemorrhage LUNGS: Clear bilaterally HEART: Regular rhythm ABDOMEN: Soft, +BS EXTREMITIES: RLE Fasciotomy site looks clean NEUROLOGIC: alert. Muscle strength close to normal except RLE Assessment/Plan: 1. 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 Has resumed Plavix 2. R eye hemorrhage: Will try to reach his opthamologist 3. Atrial fib: On ASA, B-eduardo 4. GI Bleed: PPI 5. Depression/anxiety: Xanax/Wellbutrin 6. RLE Fem-peroneal bypass: ASA/Plavix 7. Infection RLE: Zosyn IV x 3 weeks 8. DVT Prophylaxis: Wrapping legs. Can't use pharm ppx due to SAH 9. Edema: Wrapping legs, Demadex 07/28/18 19:15
[2018-07-29] MEDS: HYDROcodone/ACETAMIN 5-325 MG* 1 TAB PO PRN ×4 (01:16→22:12)
[2018-07-29] MEDS: Piperacillin/Tazobac ADVAN(*) 3.375 GM in NS 0.9% 100 ML* 100 ML IVPB SCH ×3 (01:18→18:38)
[2018-07-29] MEDS: Acetaminophen TAB* 325 MG PO PRN ×2 (03:38→13:53)
[2018-07-29] MEDS: Levothyroxine TAB* 150 MCG TAB PO SCH (06:11)
[2018-07-29] MEDS: Pantoprazole TAB * 40 MG TAB PO SCH (06:11)
[2018-07-29] MEDS: BuPROPion XL* 150 MG TAB.XL PO SCH (07:45)
[2018-07-29] MEDS: Aspirin EC TAB* 81 MG TAB.EC PO SCH (07:45)
[2018-07-29] MEDS: Metoprolol Succinate XL TAB* 25 MG PO SCH (07:46)
[2018-07-29] MEDS: Clopidogrel TAB* 75 MG PO SCH (07:46)
[2018-07-29] MEDS: Torsemide TAB* 20 MG PO SCH (07:46)
[2018-07-29] MEDS: Docusate CAP* 100 MG PO SCH ×2 (07:46→20:21)
[2018-07-29] MEDS: Enalapril TAB* 5 MG PO SCH ×2 (07:46→18:05)
[2018-07-29] MEDS: COLLAGENASE 250 MG/GM TOPICAL SCH ×2 (10:56→21:50)
--- NOTE | 2018-07-29 12:25 | CONS ---
CONSULTATION REPORT: DATE OF CONSULT: 07/29/18 REQUESTING PHYSICIAN: Dr. Dale. CONSULTING SERVICE: Infectious Diseases. REASON FOR CONSULT: Right leg infection. IMPRESSION: 1. Status post right leg bypass and vein harvest to the right lower leg complicated by wound incision dehiscence and wound infection, which grew proteus , diphtheroid, and and Staph epi at [facility]. He was committed to a 3- week course of Zosyn there. 2. Subarachnoid hemorrhage. 3. Peripheral vascular disease status post right leg bypass, June 2018. 4. Aortic abdominal aneurysm repair. 5. Sleep apnea. 6. Spinal fusion. 7. Atrial fibrillation, had been anticoagulated. RECOMMENDATIONS: We will continue Zosyn, follow his wound here, and he should follow up with the wound clinic on discharge. He should have a CBC and CMP once a week while he is on the IV antibiotics. HISTORY OF PRESENT ILLNESS: This is an 82-year-old man with subarachnoid hemorrhage for which he is receiving inpatient rehab. He had in June also been here with recovery after a right leg bypass procedure that had included a vein graft in the lower leg, incision from which opened up and had been draining some purulent fluid with associated cellulitis. He was back at [facility] for the subarachnoid hemorrhage and seen by Infectious Disease there. Wound cultures grew proteus, diphtheroid, and Staph epi. He was started on Zosyn which he has been tolerating well except for some decrease in appetite. The wound is being dressed daily. There is some serous drainage. The erythema and purulent drainage are improved per the nursing staff. The surgery was right [id number] bypass with vein harvest. There is a concern about thrombosis of the bypass, but turned out not to be the case and he has no foot pain currently. He is about 7 days into his IV antibiotics. There are no loose stools or abdominal pain. PAST MEDICAL HISTORY: 1. Peripheral vascular disease status post right femoral-peroneal bypass, June 2018. 2. Atrial fibrillation. 3. Gastrointestinal bleed. 4. Anxiety. 5. Status post pacemaker placement. 6. Sleep apnea, on CPAP on home. 7. Aortic abdominal aneurysm repair. 8. Gastroesophageal reflux disease. 9. Spinal stenosis, status post spinal fusion. MEDICATIONS: 1. Tylenol. 2. Albuterol. 3. Xanax as needed. 4. Aspirin. 5. Bupropion. 6. Sinemet. 7. Enalapril. 8. Heparin flush through the PICC. 9 Vicodin as needed. 10. Hydroxyzine. 11. Levothyroxine. 12. Metoprolol. 13. Pantoprazole. 14. Senna. 15. Torsemide. 16. Zosyn. ALLERGIES: KEFLEX. FAMILY HISTORY: No recurrent infections. SOCIAL HISTORY: He lives in [place] with his . 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 No travels or sick contacts. REVIEW OF SYSTEMS: All negative except as noted above in the history of present illness to a 12-point review. PHYSICAL EXAM: Vital Signs: Temperature 37, heart rate 60, respirations 16, blood pressure 160/80, oxygen saturation 99% on room air. In general, he is awake, not in distress. Neurologic: He is oriented x3, follows all commands. HEENT: There is a large right conjunctival hemorrhage. Oropharynx without lesion or thrush. Neck: Neck is supple without mass. Heart is regular rate and rhythm without murmurs, rubs, or gallops. Lungs are clear to auscultation bilaterally. Abdomen: Soft, nontender, nondistended. Bowel sounds present. Skin: There is no rash or splinter hemorrhage. Musculoskeletal: Right lower leg medial wound which is in a distal aspect of his vein harvest incision with underlying granulation tissue, slight surrounding erythema with serous drainage , no purulent drainage and no expressible fluid. DIAGNOSTIC STUDIES/LAB DATA: Creatinine 1.1, ALT 0, white blood cell count 6, hemoglobin 8, platelets 176, MCV 95. Please see impressions and recommendations as outline above, which I have discussed with Dr. Dale. Thank you for asking me to see Mr. Kendall in consultation. [id number]/[facility] #: [id number] [facility] CENTERKeesha
[2018-07-29] MEDS: Ondansetron ODT TAB* 4 MG PO PRN (16:03)
--- NOTE | 2018-07-29 16:41 | PN ---
Progress Note Date of Service: 07/29/18 Note: SUGEY BELL was visited. Therapy notes read and reviewed. His right eye appears a little better and Prasanna does not think his vision is changed. He is moving with PT Current Medications: Active Medications Generic Name Dose Route Start Last Admin Trade Name Freq PRN Reason Stop Dose Admin Acetaminophen 650 mg 07/27/18 16:51 07/29/18 13:53 Tylenol Tab* PO 650 mg Q6H PRN Administration FEVER/PAIN Hydrocodone Bitart/Acetaminophen 1 tab 07/27/18 17:04 07/29/18 10:55 [place] 5-325 Tab* PO 1 tab Q4H PRN Administration PAIN - MODERATE TO SEVERE Hydrocodone Bitart/Acetaminophen 2 tab 07/28/18 17:39 07/29/18 06:11 [place] 5-325 Tab* PO 2 tab Q4H PRN Administration PAIN - SEVERE Albuterol 2 puff 07/27/18 17:12 Ventolin Hfa Inhaler* INH Q6H PRN SOB/WHEEZING Alprazolam 0.5 mg 07/27/18 16:59 07/28/18 09:23 Xanax Tab* PO 0.5 mg BID PRN Administration ANXIETY Aspirin 81 mg 07/28/18 09:00 07/29/18 07:45 Aspirin Ec Tab* PO 81 mg DAILY EVELIO Administration Bupropion HCl 150 mg 07/28/18 09:00 07/29/18 07:45 Wellbutrin Xl * PO 150 mg DAILY EVELIO Administration Carbidopa/Levodopa 1 tab 07/27/18 18:36 07/27/18 20:22 Sinemet 25/100 Tab(*) PO 1 tab BID PRN Administration restless legs Clopidogrel Bisulfate 75 mg 07/28/18 09:00 07/29/18 07:46 Plavix Tab* PO 75 mg DAILY EVELIO Administration Collagenase 1 applic 07/27/18 21:00 07/29/18 10:56 Santyl 250 Mg/Gm Oint* TOPICAL 1 applic BID EVELIO Administration Docusate Sodium 100 mg 07/27/18 21:00 07/29/18 07:46 Colace Cap* PO Not Given BID EVELIO Enalapril Maleate 10 mg 07/28/18 09:00 07/29/18 07:46 Vasotec Tab* PO 10 mg DAILY EVELIO Administration Enalapril Maleate 5 mg 07/27/18 18:00 07/28/18 17:43 Vasotec Tab* PO 5 mg 1800 EVELIO Administration Heparin Sodium (Porcine) 1 ml 07/27/18 18:00 07/29/18 15:21 Heparin Flush Picc/Ml/Cvc(*) FLUSH 1 ml 0600,1800 EVELIO Administration Protocol Hydroxyzine HCl 25 mg 07/27/18 17:04 07/27/18 18:46 Atarax Tab* PO 25 mg Q6H PRN Administration ITCHING Piperacillin Sod/Tazobactam 100 mls @ 25 mls/hr 07/28/18 16:30 07/29/18 12:10 Sod 3.375 gm/ Sodium Chloride IVPB 25 mls/hr Q8H EVELIO Administration Levothyroxine Sodium 150 mcg 07/28/18 06:00 07/29/18 06:11 Synthroid Tab* PO 150 mcg DAILY@0600 EVELIO Administration Metoprolol Succinate 25 mg 07/28/18 09:00 07/29/18 07:46 Toprol Xl Tab* PO 25 mg DAILY EVELIO Administration Mometasone Furoate 2 puff 07/27/18 18:00 07/28/18 18:38 Asmanex 220 Mcg Mdi * INH 1 unit QPM EVELIO Administration Ondansetron HCl 4 mg 07/28/18 09:41 07/29/18 16:03 Zofran Odt Tab* PO 4 mg Q6H PRN Administration NAUSEA Pantoprazole Sodium 40 mg 07/29/18 06:00 07/29/18 06:11 Protonix Tab* PO 40 mg DAILY@0600 [facility] Administration Pharmacy Consult 1 note 07/28/18 13:00 Zosyn Per Pharmacy* FOLLOW UP .ZOSYN PER PHARMACY EVELIO Senna 2 tab 07/27/18 16:51 Senokot Tab* PO BEDTIME PRN CONSTIPATION Torsemide 10 mg 07/28/18 09:00 07/29/18 07:46 Demadex* PO 10 mg DAILY EVELIO Administration Vital Signs: Vital Signs Temp Pulse Resp BP Pulse Ox 97.3 F 61 16 147/89 100 07/29/18 16:22 07/29/18 16:22 07/29/18 16:22 07/29/18 16:22 07/29/18 16:22 Exam: HEENT: Right eye with hemorrhage LUNGS: Clear bilaterally HEART: Regular rhythm ABDOMEN: Soft, +BS EXTREMITIES: RLE Fasciotomy site looks clean. DP pulse present NEUROLOGIC: alert. Muscle strength close to normal except RLE Assessment/Plan: 1. SAH: PT/OT/VP [employer]. Has resumed Plavix 2. R eye hemorrhage: Will try to reach his opthamologist 3. Atrial fib: On ASA, B-eduardo 4. GI Bleed: PPI 5. Depression/anxiety: Xanax/Wellbutrin 6. RLE Fem-peroneal bypass: ASA/Plavix 7. Infection RLE: Zosyn IV x 3 weeks 8. DVT Prophylaxis: Wrapping legs. Can't use pharm ppx due to SAH 9. Edema: Wrapping legs, Demadex 07/29/18 16:42
[2018-07-29] MEDS: Lactobacillus Acidophilus* 1 TAB PO SCH ×2 (18:06→20:21)
[2018-07-29] MEDS: Mometasone 220 MCG MDI INH SCH (21:21)
[2018-07-29] MEDS: Carbidopa/Levodop 25/100 MG TAB(*) PO PRN (22:12)
[2018-07-29] MEDS: ALPRAZolam TAB* 0.5 MG PO PRN (22:12)
[2018-07-30] MEDS: Acetaminophen TAB* 325 MG PO PRN (01:37)
[2018-07-30] MEDS: Piperacillin/Tazobac ADVAN(*) 3.375 GM in NS 0.9% 100 ML* 100 ML IVPB SCH ×3 (01:38→17:10)
[2018-07-30] MEDS: HYDROcodone/ACETAMIN 5-325 MG* 1 TAB PO PRN ×4 (03:26→21:11)
[2018-07-30] MEDS: Levothyroxine TAB* 150 MCG TAB PO SCH (05:35)
[2018-07-30] MEDS: hydrOXYzine HCL TAB* 25 MG PO PRN ×2 (05:35→18:55)
[2018-07-30] MEDS: Pantoprazole TAB * 40 MG TAB PO SCH (05:36)
[2018-07-30] MEDS: Enalapril TAB* 5 MG PO SCH ×2 (08:14→17:43)
[2018-07-30] MEDS: Lactobacillus Acidophilus* 1 TAB PO SCH ×2 (08:14→20:14)
[2018-07-30] MEDS: Clopidogrel TAB* 75 MG PO SCH (08:14)
[2018-07-30] MEDS: Docusate CAP* 100 MG PO SCH ×3 (08:14→19:12)
[2018-07-30] MEDS: Metoprolol Succinate XL TAB* 25 MG PO SCH (08:14)
[2018-07-30] MEDS: Torsemide TAB* 20 MG PO SCH (08:14)
[2018-07-30] MEDS: BuPROPion XL* 150 MG TAB.XL PO SCH (08:14)
[2018-07-30] MEDS: Aspirin EC TAB* 81 MG TAB.EC PO SCH (08:14)
[2018-07-30] MEDS: COLLAGENASE 250 MG/GM TOPICAL SCH ×2 (09:14→19:13)
--- NOTE | 2018-07-30 12:30 | PMRUTEAM ---
PMRU: Team Meeting Current Status: Nursing: Current Status Skin Deviations [hebert elbow] Abrasion Skin Deviations [Right Eye] Other Skin Deviations [Right Lower Wound Leg] Skin Deviation Description [ 1 per elbow, scabbed hebert elbow] Skin Deviation Description [ sclera blood shot Right Eye] Skin Deviation Description [ clean, dry and intact Right Lower Leg] Physical Therapy: Current Status Bed Mobility Assistance Supervision Transfer Mobility Assistance Supervision Transfer/Bed Mobility Rolling Walker Recommended Devices Ambulation Assistance Supervision,Contact Guard Assist Ambulation Assistive Devices Rolling Walker Number of Feet Patient 125 Ambulated Stairs Assistance Supervision Stairs Recommended Devices Two Rails Number of Stairs 5 Objective Comments step to pattern ascend/descending stairs Occupational Therapy: Current Status Upper Body Dressing Supervision,Min Assist Lower Body Dressing Min Assist Bathing Supervision Toileting Supervision Toilet Transfer Supervision Eating Independent Rec Therapy: Current Status Summary of Assessment and Re-introduced RT services and re-entered RT Clinical Impression assessment above as pt. was recently d/c'ed from the unit and re-admitted. Pt. expressed continued interest in leisure activities and visits while on the unit. Treatment Goals Pt. will engage in leisure activities while on the unit. Treatment Plan Provide RT services and encourage involvement. Goals: Physical Therapy: Initial Goals Bed Mobility Assistance Independent Transfer Mobility Assistance Independent Transfer/Bed Mobility Rolling Walker Recommended Devices Ambulation Independent Ambulation Recommended Devices Rolling Walker Ambulation Distance 150 Stairs Assistance Independent Stair Recommended Devices One Rail Number of Stairs 6 Home Exercise Program Independent Assistance Physical Therapy: Updated Goals Transfer/Bed Mobility Rolling Walker Recommended Devices Occupational Therapy: Initial Goals Goals to be Completed in (Days 7 ) Upper Body Bathing Routine Independent Lower Body Bathing Routine Modified Independent with Upper Body Dressing Routine Independent Lower Body Dressing Routine Modified Independent with Toilet Hygeine and Clothing Modified Independent with Management Routine Toilet Transfer Routine Modified Independent with Step-In Shower Transfer Modified Independent with Routine Functional Transfers for ADL Modified Independent with Grooming Routine Independent Feeding Routine Independent Nutrition: Goals Intervention Goals 1. adequate po intake to maintain stable wt, hydration, and lean body mass 2. achieve/maintain regular bowel pattern without constipation/diarrhea 3. tolerance to po intake w/o GI distress Care Plan: Care Plan ADL's - Improve/Maintain Start: 07/28/18 15:50 Freq: DAILY Status: Active Target: Protocol: Activity Type Activity Date Activity User E-Sign Co-Sign Detail Recorded Client Recorded Date Recorded By Document 07/29/18 14:52 [id number] [id number] 07/29/18 14:52 [id number] 07/29/18 14:52 PMRU Outcome: ADL's/ADL Transfers Orders/Interventions Occupational Therapy Evaluation & Treatment Communication Tool in Patient Room Device Yes Address Deficits Secondary To: SAH Patient to receive OT 5x/wk for 60-120 Therex min/day Self Care Management Group Therapy UE/LE ADL's with Assist Yes: Lior ADL Transfers with Assist Yes: Lior Toileting: Transfers,Clothing Management Yes: Lior ,Hygeine w/Assist Light Kitchen/Laundry w/Assist No Progression Toward Outcome/Goals Progressing Outcome/Goals Met Pt participated well, increased independence with LE dressing with doffing/donning socks this am prior to threading underwear/pants . Nursing in to readjust dressing as needed during session. Coping/Psych-Improve/Maintain Start: 07/29/18 01:36 Freq: QSHIFT Status: Active Target: Protocol: Activity Type Activity Date Activity User E-Sign Co-Sign Detail Recorded Client Recorded Date Recorded By Document 07/30/18 08:00 [id number] 07/30/18 10:54 [id number] 07/30/18 08:00 PMRU Outcome: Coping/Psychosocial Coping Outcome/Goals Verbalization of Acceptance of Rehab Admit Verbalization of Sense of Control Over Health Status Psychosocial Outcome/Goals Maintain/ Improve Emotional Health Cooperate/ Participate in Plan Progression Toward Outcome/Goals - Progressing Coping Progression Toward Outcome/Goals - Progressing Psychosocial Discharge Planning - Improve/Maintain Start: 07/29/18 01:36 Freq: DAILY Status: Active Target: Protocol: Activity Type Activity Date Activity User E-Sign Co-Sign Detail Recorded Client Recorded Date Recorded By Document 07/30/18 00:55 [id number] [id number] 07/30/18 00:55 [id number] 07/30/18 00:55 PMRU Outcome: Discharge Planning Update Patient Family No Outcome/Goals Demonstrates Understanding of Discharge Plan Education-Improve/Maintain Start: 07/29/18 01:36 Freq: QSHIFT Status: Active Target: Protocol: Activity Type Activity Date Activity User E-Sign Co-Sign Detail Recorded Client Recorded Date Recorded By Document 07/30/18 08:00 [id number] [id number] 07/30/18 10:54 [id number] 07/30/18 08:00 PMRU Outcome: Education Outcome/Goals Demonstrate/ Verbalize Understanding of Written Discharge Instructions Encourage Questions Progression Toward Outcome/Goals Progressing /GI-Improve/Maintain Start: 07/29/18 01:36 Freq: QSHIFT Status: Active Target: Protocol: Activity Type Activity Date Activity User E-Sign Co-Sign Detail Recorded Client Recorded Date Recorded By Document 07/30/18 08:00 [id number] [email or web address] 07/30/18 10:54 [id number] 07/30/18 08:00 PMRU Outcome: Genitourinary/ Gastrointestinal Genitourinary- Outcome/Goals Maintain/ Achieve Urinary Continence Remain Free of Hospital- Acquired UTI Gastrointestinal-Outcome/Goals Maintain/ Achieve Bowel Regularity in Accordance with Pt's Baseline Prevent Constipation Progression Toward Outcome/Goals - Progressing Progression Toward Outcome/Goals - GI Progressing Gastrointestinal-Improve/Maintain Start: 07/28/18 00:33 Freq: 08,20 Status: Complete Target: Protocol: Activity Type Activity Date Activity User E-Sign Co-Sign Detail Recorded Client Recorded Date Recorded By Document 07/28/18 00:34 [id number] 07/28/18 00:34 [id number] 07/28/18 00:34 Outcome: Gastrointestinal Outcome/Goals Maintain/ Achieve Bowel Regularity in Accordance with Pt's Baseline Progression Toward Outcome/Goals Progressing Infection-Improve/Maintain Start: 07/28/18 00:33 Freq: 08,20 Status: Active Target: Protocol: Activity Type Activity Date Activity User E-Sign Co-Sign Detail Recorded Client Recorded Date Recorded By Document 07/30/18 08:00 [id number] 07/30/18 10:54 [id number] 07/30/18 08:00 Outcome: Infection Outcome/Goals Remain Free of Infection Improve or Eliminate Infection Progression Toward Outcome/Goals Progressing Metabolic Status-Improve/Maintain Start: 07/28/18 00:33 Freq: 08,20 Status: Complete Target: Protocol: Activity Type Activity Date Activity User E-Sign Co-Sign Detail Recorded Client Recorded Date Recorded By Document 07/28/18 00:34 [id number] 07/28/18 00:34 [id number] 07/28/18 00:34 Outcome: Metabolic Status Outcome/Goals Maintain/ Improve Metabolic Status Demonstrate Knowledge of Prevention/ Treatment of Metabolic Imbalances Progression Toward Outcome/Goals Progressing Neurological- Improve/Maintain Start: 07/29/18 01:36 Freq: QSHIFT Status: Active Target: Protocol: Activity Type Activity Date Activity User E-Sign Co-Sign Detail Recorded Client Recorded Date Recorded By Document 07/30/18 08:00 [id number] 07/30/18 10:54 [id number] 07/30/18 08:00 PMRU Outcome: Neurological Weakness/Aphasia Weakness Outcome/Goals Maintain/ Achieve Baseline Neurological Status Maintain/ Improve Strength/ROM Progression Toward Outcome/Goals Progressing Pain/Comfort- Improve/Maintain Start: 07/29/18 01:36 Freq: QSHIFT Status: Active Target: Protocol: Activity Type Activity Date Activity User E-Sign Co-Sign Detail Recorded Client Recorded Date Recorded By Document 07/30/18 08:00 [id number] [id number] 07/30/18 10:54 [id number] 07/30/18 08:00 PMRU Outcome: Pain/Comfort Outcome/Goals Demonstrates Knowledge and Use of Available Comfort Measures Achieves Acceptable Comfort/Pain Level as Determined by Patient/Condit Maintain Comfort Level Allowing Patient to Fully Participate in Rehab Progression Toward Outcome/Goals Progressing Outcome/Goals Met Comment pt resting Safety- Improve/Maintain Start: 07/29/18 01:36 Freq: QSHIFT Status: Active Target: Protocol: Activity Type Activity Date Activity User E-Sign Co-Sign Detail Recorded Client Recorded Date Recorded By Document 07/30/18 08:00 [id number] [id number] 07/30/18 10:54 [id number] 07/30/18 08:00 PMRU Outcome: Safety Outcome/Goals Remain Free of Injury or Harm Prevent Falls/ Injury Progression Toward Outcome/Goals Progressing Outcome/Goals Met Comment BA and PA in use Skin- Improve/Maintain Start: 07/29/18 01:36 Freq: QSHIFT Status: Active Target: Protocol: Activity Type Activity Date Activity User E-Sign Co-Sign Detail Recorded Client Recorded Date Recorded By Document 07/30/18 08:00 [id number] 07/30/18 10:54 [id number] 07/30/18 08:00 PMRU Outcome: Skin Skin Risk Level Medium Skin Orders Dressing Change Outcome/Goals Maintain/ Improve Skin Intergrity Surgical Incisions Healing Progression Toward Outcome/Goals Progressing Medicine Note: Length of Stay: 4 days Anticipated Discharge Destination: Tentative Discharge Date: 08/03/18 Discharged to: Home
--- NOTE | 2018-07-30 17:50 | PN ---
Progress Note Date of Service: 07/30/18 Note: SUGEY BELL was visited. Therapy notes read and reviewed. Right eye looks better. He was discussed in interdisciplinary team rounds. He seems to be doing ok. Current Medications: Active Medications Generic Name Dose Route Start Last Admin Trade Name Freq PRN Reason Stop Dose Admin Acetaminophen 650 mg 07/27/18 16:51 07/30/18 01:37 Tylenol Tab* PO 650 mg Q6H PRN Administration FEVER/PAIN Hydrocodone Bitart/Acetaminophen 1 tab 07/27/18 17:04 07/30/18 13:09 [place] 5-325 Tab* PO 1 tab Q4H PRN Administration PAIN - MODERATE TO SEVERE Hydrocodone Bitart/Acetaminophen 2 tab 07/28/18 17:39 07/29/18 22:12 [place] 5-325 Tab* PO 2 tab Q4H PRN Administration PAIN - SEVERE Albuterol 2 puff 07/27/18 17:12 Ventolin Hfa Inhaler* INH Q6H PRN SOB/WHEEZING Alprazolam 0.5 mg 07/27/18 16:59 07/29/18 22:12 Xanax Tab* PO 0.5 mg BID PRN Administration ANXIETY Aspirin 81 mg 07/28/18 09:00 07/30/18 08:14 Aspirin Ec Tab* PO 81 mg DAILY EVELIO Administration Bupropion HCl 150 mg 07/28/18 09:00 07/30/18 08:14 Wellbutrin Xl * PO 150 mg DAILY EVELIO Administration Carbidopa/Levodopa 1 tab 07/27/18 18:36 07/29/18 22:12 Sinemet 25/100 Tab(*) PO 1 tab BID PRN Administration restless legs Clopidogrel Bisulfate 75 mg 07/28/18 09:00 07/30/18 08:14 Plavix Tab* PO 75 mg DAILY EVELIO Administration Collagenase 1 applic 07/27/18 21:00 07/30/18 09:14 Santyl 250 Mg/Gm Oint* TOPICAL 1 applic BID EVELIO Administration Docusate Sodium 100 mg 07/27/18 21:00 07/30/18 08:16 Colace Cap* PO Not Given BID EVELIO Enalapril Maleate 10 mg 07/28/18 09:00 07/30/18 08:14 Vasotec Tab* PO 10 mg DAILY EVELIO Administration Enalapril Maleate 5 mg 07/27/18 18:00 07/30/18 17:43 Vasotec Tab* PO 5 mg 1800 EVELIO Administration Heparin Sodium (Porcine) 1 ml 07/27/18 18:00 07/30/18 05:36 Heparin Flush Picc/Ml/Cvc(*) FLUSH 1 ml 0600,1800 EVELIO Administration Protocol Hydroxyzine HCl 25 mg 07/27/18 17:04 07/30/18 05:35 Atarax Tab* PO 25 mg Q6H PRN Administration ITCHING Piperacillin Sod/Tazobactam 100 mls @ 25 mls/hr 07/28/18 16:30 07/30/18 17:10 Sod 3.375 gm/ Sodium Chloride IVPB 25 mls/hr Q8H EVELIO Administration Lactobacillus Rhamnosus 1 tab 07/29/18 21:00 07/30/18 08:14 Lactobacillus Acidophilus* PO 1 tab BID EVELIO Administration Levothyroxine Sodium 150 mcg 07/28/18 06:00 07/30/18 05:35 Synthroid Tab* PO 150 mcg DAILY@0600 EVELIO Administration Metoprolol Succinate 25 mg 07/28/18 09:00 07/30/18 08:14 Toprol Xl Tab* PO 25 mg DAILY EVELIO Administration Mometasone Furoate 2 puff 07/27/18 18:00 07/29/18 21:21 Asmanex 220 Mcg Mdi * INH 2 puff QPM EVELIO Administration Ondansetron HCl 4 mg 07/28/18 09:41 07/29/18 16:03 Zofran Odt Tab* PO 4 mg Q6H PRN Administration NAUSEA Pantoprazole Sodium 40 mg 07/29/18 06:00 07/30/18 05:36 Protonix Tab* PO 40 mg DAILY@0600 EVELIO Administration Pharmacy Consult 1 note 07/28/18 13:00 Zosyn Per Pharmacy* FOLLOW UP .ZOSYN PER PHARMACY EVELIO Senna 2 tab 07/27/18 16:51 Senokot Tab* PO BEDTIME PRN CONSTIPATION Torsemide 10 mg 07/28/18 09:00 07/30/18 08:14 Demadex* PO 10 mg DAILY EVELIO Administration Vital Signs: Vital Signs Temp Pulse Resp BP Pulse Ox 98.4 F 58 18 139/88 94 07/30/18 15:53 07/30/18 15:53 07/30/18 15:53 07/30/18 15:53 07/30/18 15:53 Exam: HEENT: Right eye with hemorrhage LUNGS: Clear bilaterally HEART: Regular rhythm ABDOMEN: Soft, +BS EXTREMITIES: RLE Fasciotomy site looks clean. DP pulse present NEUROLOGIC: alert. 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 R eye hemorrhage: Will try to reach his opthamologist 3. Atrial fib: On ASA, B-eduardo 4. GI Bleed: PPI 5. Depression/anxiety: Xanax/Wellbutrin 6. RLE Fem-peroneal bypass: ASA/Plavix 7. Infection RLE: Zosyn IV x 3 weeks 8. DVT Prophylaxis: Wrapping legs. Can't use pharm ppx due to SAH 9. Edema: Wrapping legs, Demadex 07/30/18 17:50
[2018-07-30] MEDS: Mometasone 220 MCG MDI INH SCH (18:57)
[2018-07-30] MEDS: ALPRAZolam TAB* 0.5 MG PO PRN (21:10)
[2018-07-30] MEDS: Carbidopa/Levodop 25/100 MG TAB(*) PO PRN (21:10)
[2018-07-31] MEDS: Piperacillin/Tazobac ADVAN(*) 3.375 GM in NS 0.9% 100 ML* 100 ML IVPB SCH ×3 (01:09→16:41)
[2018-07-31] MEDS: HYDROcodone/ACETAMIN 5-325 MG* 1 TAB PO PRN ×3 (01:15→21:03)
[2018-07-31] MEDS: Acetaminophen TAB* 325 MG PO PRN ×2 (05:03→23:42)
[2018-07-31] MEDS: Levothyroxine TAB* 150 MCG TAB PO SCH (05:08)
[2018-07-31] MEDS: Pantoprazole TAB * 40 MG TAB PO SCH (05:08)
[2018-07-31] MEDS: Ondansetron ODT TAB* 4 MG PO PRN ×2 (07:30→17:07)
[2018-07-31] MEDS: Torsemide TAB* 20 MG PO SCH (08:54)
[2018-07-31] MEDS: Clopidogrel TAB* 75 MG PO SCH (08:54)
[2018-07-31] MEDS: BuPROPion XL* 150 MG TAB.XL PO SCH (08:54)
[2018-07-31] MEDS: Docusate CAP* 100 MG PO SCH ×2 (08:54→21:03)
[2018-07-31] MEDS: Aspirin EC TAB* 81 MG TAB.EC PO SCH (08:54)
[2018-07-31] MEDS: Lactobacillus Acidophilus* 1 TAB PO SCH ×2 (08:55→21:03)
[2018-07-31] MEDS: Enalapril TAB* 5 MG PO SCH ×2 (08:55→18:06)
[2018-07-31] MEDS: Metoprolol Succinate XL TAB* 25 MG PO SCH (08:55)
[2018-07-31] MEDS: COLLAGENASE 250 MG/GM TOPICAL SCH ×2 (09:02→21:30)
--- NOTE | 2018-07-31 16:33 | PN ---
Progress Note Date of Service: 07/31/18 Note: SUGEY BELL was visited. Therapy notes read and reviewed. He worked hard with therapy and then he had a long nap. No complaints. will need to be trained in how to flush PICC. He has loose BMs from antibiotics Current Medications: Active Medications Generic Name Dose Route Start Last Admin Trade Name Freq PRN Reason Stop Dose Admin Acetaminophen 650 mg 07/27/18 16:51 07/31/18 05:03 Tylenol Tab* PO 650 mg Q6H PRN Administration FEVER/PAIN Hydrocodone Bitart/Acetaminophen 1 tab 07/27/18 17:04 07/31/18 01:15 [place] 5-325 Tab* PO 1 tab Q4H PRN Administration PAIN - MODERATE TO SEVERE Hydrocodone Bitart/Acetaminophen 2 tab 07/28/18 17:39 07/31/18 11:59 [place] 5-325 Tab* PO 2 tab Q4H PRN Administration PAIN - SEVERE Albuterol 2 puff 07/27/18 17:12 Ventolin Hfa Inhaler* INH Q6H PRN SOB/WHEEZING Alprazolam 0.5 mg 07/27/18 16:59 07/30/18 21:10 Xanax Tab* PO 0.5 mg BID PRN Administration ANXIETY Aspirin 81 mg 07/28/18 09:00 07/31/18 08:54 Aspirin Ec Tab* PO 81 mg DAILY EVELIO Administration Bupropion HCl 150 mg 07/28/18 09:00 07/31/18 08:54 Wellbutrin Xl * PO 150 mg DAILY EVELIO Administration Carbidopa/Levodopa 1 tab 07/27/18 18:36 07/30/18 21:10 Sinemet 25/100 Tab(*) PO 1 tab BID PRN Administration restless legs Clopidogrel Bisulfate 75 mg 07/28/18 09:00 07/31/18 08:54 Plavix Tab* PO 75 mg DAILY EVELIO Administration Collagenase 1 applic 07/27/18 21:00 07/31/18 09:02 Santyl 250 Mg/Gm Oint* TOPICAL 1 applic BID EVELIO Administration Docusate Sodium 100 mg 07/27/18 21:00 07/31/18 08:54 Colace Cap* PO 100 mg BID EVELIO Administration Enalapril Maleate 10 mg 07/28/18 09:00 07/31/18 08:55 Vasotec Tab* PO 10 mg DAILY EVELIO Administration Enalapril Maleate 5 mg 07/27/18 18:00 07/30/18 17:43 Vasotec Tab* PO 5 mg 1800 EVELIO Administration Heparin Sodium (Porcine) 1 ml 07/27/18 18:00 07/31/18 05:08 Heparin Flush Picc/Ml/Cvc(*) FLUSH 1 ml 0600,1800 EVELIO Administration Protocol Hydroxyzine HCl 25 mg 07/27/18 17:04 07/30/18 18:55 Atarax Tab* PO 25 mg Q6H PRN Administration ITCHING Piperacillin Sod/Tazobactam 100 mls @ 25 mls/hr 07/28/18 16:30 07/31/18 08:54 Sod 3.375 gm/ Sodium Chloride IVPB 25 mls/hr Q8H EVELIO Administration Lactobacillus Rhamnosus 1 tab 07/29/18 21:00 07/31/18 08:55 Lactobacillus Acidophilus* PO 1 tab BID EVELIO Administration Levothyroxine Sodium 150 mcg 07/28/18 06:00 07/31/18 05:08 Synthroid Tab* PO 150 mcg DAILY@0600 EVELIO Administration Metoprolol Succinate 25 mg 07/28/18 09:00 07/31/18 08:55 Toprol Xl Tab* PO 25 mg DAILY EVELIO Administration Mometasone Furoate 2 puff 07/27/18 18:00 07/30/18 18:57 Asmanex 220 Mcg Mdi * INH 2 puff QPM EVELIO Administration Ondansetron HCl 4 mg 07/28/18 09:41 07/31/18 07:30 Zofran Odt Tab* PO 4 mg Q6H PRN Administration NAUSEA Pantoprazole Sodium 40 mg 07/29/18 06:00 07/31/18 05:08 Protonix Tab* PO 40 mg DAILY@0600 EVELIO Administration Pharmacy Consult 1 note 07/28/18 13:00 Zosyn Per Pharmacy* FOLLOW UP .ZOSYN PER PHARMACY EVELIO Senna 2 tab 07/27/18 16:51 Senokot Tab* PO BEDTIME PRN CONSTIPATION Torsemide 10 mg 07/28/18 09:00 07/31/18 08:54 Demadex* PO 10 mg DAILY EVELIO Administration Vital Signs: Vital Signs Temp Pulse Resp BP Pulse Ox 98.2 F 59 18 146/80 96 07/31/18 05:11 07/31/18 05:11 07/31/18 14:41 07/31/18 05:11 07/31/18 08:00 Exam: HEENT: Right eye with hemorrhage LUNGS: Clear bilaterally HEART: Regular rhythm ABDOMEN: Soft, +BS EXTREMITIES: RLE Fasciotomy site looks clean. DP pulse present NEUROLOGIC: alert. 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 R eye hemorrhage: improving 3. Atrial fib: On ASA, B-eduardo 4. GI Bleed: PPI 5. Depression/anxiety: Xanax/Wellbutrin 6. RLE Fem-peroneal bypass: ASA/Plavix 7. Infection RLE: Zosyn IV x 3 weeks 8. DVT Prophylaxis: Wrapping legs. Can't use pharm ppx due to SAH 9. Edema: Wrapping legs, Demadex 07/31/18 16:33
[2018-07-31] MEDS: Mometasone 220 MCG MDI INH SCH (18:06)
[2018-07-31] MEDS: ALPRAZolam TAB* 0.5 MG PO PRN (22:03)
[2018-07-31] MEDS: hydrOXYzine HCL TAB* 25 MG PO PRN (23:42)
[2018-08-01] MEDS: Piperacillin/Tazobac ADVAN(*) 3.375 GM in NS 0.9% 100 ML* 100 ML IVPB SCH ×3 (00:21→16:38)
[2018-08-01] MEDS: HYDROcodone/ACETAMIN 5-325 MG* 1 TAB PO PRN ×4 (01:50→20:28)
[2018-08-01] MEDS: Pantoprazole TAB * 40 MG TAB PO SCH (06:06)
[2018-08-01] MEDS: Levothyroxine TAB* 150 MCG TAB PO SCH (06:06)
[2018-08-01] MEDS: Lactobacillus Acidophilus* 1 TAB PO SCH ×2 (08:14→20:28)
[2018-08-01] MEDS: Clopidogrel TAB* 75 MG PO SCH (08:14)
[2018-08-01] MEDS: Aspirin EC TAB* 81 MG TAB.EC PO SCH (08:14)
[2018-08-01] MEDS: Docusate CAP* 100 MG PO SCH ×2 (08:14→21:52)
[2018-08-01] MEDS: BuPROPion XL* 150 MG TAB.XL PO SCH (08:14)
[2018-08-01] MEDS: Metoprolol Succinate XL TAB* 25 MG PO SCH (08:14)
[2018-08-01] MEDS: Enalapril TAB* 5 MG PO SCH ×2 (08:15→20:00)
[2018-08-01] MEDS: Torsemide TAB* 20 MG PO SCH (08:15)
[2018-08-01] MEDS: Ondansetron ODT TAB* 4 MG PO PRN ×2 (10:20→18:07)
[2018-08-01] MEDS: COLLAGENASE 250 MG/GM TOPICAL SCH ×2 (10:20→19:51)
--- NOTE | 2018-08-01 16:26 | PN ---
Progress Note Date of Service: 08/01/18 Note: SUGEY BELL was visited. Nursing notes read and reviewed. He had a lot of pain in his leg yesterday after a busy day of therapy. Today is better Current Medications: Active Medications Generic Name Dose Route Start Last Admin Trade Name Freq PRN Reason Stop Dose Admin Acetaminophen 650 mg 07/27/18 16:51 07/31/18 23:42 Tylenol Tab* PO 650 mg Q6H PRN Administration FEVER/PAIN Hydrocodone Bitart/Acetaminophen 1 tab 07/27/18 17:04 07/31/18 01:15 [place] 5-325 Tab* PO 1 tab Q4H PRN Administration PAIN - MODERATE TO SEVERE Hydrocodone Bitart/Acetaminophen 2 tab 07/28/18 17:39 08/01/18 10:52 [place] 5-325 Tab* PO 2 tab Q4H PRN Administration PAIN - SEVERE Albuterol 2 puff 07/27/18 17:12 Ventolin Hfa Inhaler* INH Q6H PRN SOB/WHEEZING Alprazolam 0.5 mg 07/27/18 16:59 07/31/18 22:03 Xanax Tab* PO 0.5 mg BID PRN Administration ANXIETY Aspirin 81 mg 07/28/18 09:00 08/01/18 08:14 Aspirin Ec Tab* PO 81 mg DAILY EVELIO Administration Bupropion HCl 150 mg 07/28/18 09:00 08/01/18 08:14 Wellbutrin Xl * PO 150 mg DAILY EVELIO Administration Carbidopa/Levodopa 1 tab 07/27/18 18:36 07/30/18 21:10 Sinemet 25/100 Tab(*) PO 1 tab BID PRN Administration restless legs Clopidogrel Bisulfate 75 mg 07/28/18 09:00 08/01/18 08:14 Plavix Tab* PO 75 mg DAILY EVELIO Administration Collagenase 1 applic 07/27/18 21:00 08/01/18 10:20 Santyl 250 Mg/Gm Oint* TOPICAL 1 applic BID EVELIO Administration Docusate Sodium 100 mg 07/27/18 21:00 08/01/18 08:14 Colace Cap* PO 100 mg BID EVELIO Administration Enalapril Maleate 10 mg 07/28/18 09:00 08/01/18 08:15 Vasotec Tab* PO 10 mg DAILY EVELIO Administration Enalapril Maleate 5 mg 07/27/18 18:00 07/31/18 18:06 Vasotec Tab* PO 5 mg 1800 EVELIO Administration Heparin Sodium (Porcine) 1 ml 07/27/18 18:00 08/01/18 05:59 Heparin Flush Picc/Ml/Cvc(*) FLUSH 1 ml 0600,1800 EVELIO Administration Protocol Hydroxyzine HCl 25 mg 07/27/18 17:04 07/31/18 23:42 Atarax Tab* PO 25 mg Q6H PRN Administration ITCHING Piperacillin Sod/Tazobactam 100 mls @ 25 mls/hr 07/28/18 16:30 08/01/18 08:12 Sod 3.375 gm/ Sodium Chloride IVPB 25 mls/hr Q8H EVELIO Administration Lactobacillus Rhamnosus 1 tab 07/29/18 21:00 08/01/18 08:14 Lactobacillus Acidophilus* PO 1 tab BID EVELIO Administration Levothyroxine Sodium 150 mcg 07/28/18 06:00 08/01/18 06:06 Synthroid Tab* PO 150 mcg DAILY@0600 EVELIO Administration Metoprolol Succinate 25 mg 07/28/18 09:00 08/01/18 08:14 Toprol Xl Tab* PO 25 mg DAILY EVELIO Administration Mometasone Furoate 2 puff 07/27/18 18:00 07/31/18 18:06 Asmanex 220 Mcg Mdi * INH 2 puff QPM EVELIO Administration Ondansetron HCl 4 mg 07/28/18 09:41 08/01/18 10:20 Zofran Odt Tab* PO 4 mg Q6H PRN Administration NAUSEA Pantoprazole Sodium 40 mg 07/29/18 06:00 08/01/18 06:06 Protonix Tab* PO 40 mg DAILY@0600 [facility] Administration Pharmacy Consult 1 note 07/28/18 13:00 Zosyn Per Pharmacy* FOLLOW UP .ZOSYN PER PHARMACY EVELIO Senna 2 tab 07/27/18 16:51 Senokot Tab* PO BEDTIME PRN CONSTIPATION Torsemide 10 mg 07/28/18 09:00 08/01/18 08:15 Demadex* PO 10 mg DAILY EVELIO Administration Vital Signs: Vital Signs Temp Pulse Resp BP Pulse Ox 97.6 F 73 18 150/92 100 08/01/18 06:06 08/01/18 15:59 08/01/18 15:59 08/01/18 15:59 08/01/18 15:59 Exam: HEENT: Right eye with hemorrhage LUNGS: Clear bilaterally HEART: Regular rhythm ABDOMEN: Soft, +BS EXTREMITIES: RLE Fasciotomy site looks clean. DP pulse present NEUROLOGIC: alert. 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 R eye hemorrhage: improving 3. Atrial fib: On ASA, B-eduardo 4. GI Bleed: PPI 5. Depression/anxiety: Xanax/Wellbutrin 6. RLE Fem-peroneal bypass: ASA/Plavix 7. Infection RLE: Zosyn IV day 01/23 8. DVT Prophylaxis: Wrapping legs. Can't use pharm ppx due to SAH 9. Edema: Wrapping legs, Demadex 08/01/18 16:27
[2018-08-01] MEDS: Acetaminophen TAB* 325 MG PO PRN (16:39)
[2018-08-01] MEDS: Mometasone 220 MCG MDI INH SCH (18:07)
[2018-08-01] MEDS: ALPRAZolam TAB* 0.5 MG PO PRN (19:59)
[2018-08-01] MEDS: hydrOXYzine HCL TAB* 25 MG PO PRN (20:00)
[2018-08-01] MEDS: Carbidopa/Levodop 25/100 MG TAB(*) PO PRN (20:29)
[2018-08-02] MEDS: Piperacillin/Tazobac ADVAN(*) 3.375 GM in NS 0.9% 100 ML* 100 ML IVPB SCH ×3 (00:35→16:42)
[2018-08-02] MEDS: Acetaminophen TAB* 325 MG PO PRN (00:35)
[2018-08-02] MEDS: HYDROcodone/ACETAMIN 5-325 MG* 1 TAB PO PRN ×5 (04:00→21:44)
[2018-08-02] MEDS: Levothyroxine TAB* 150 MCG TAB PO SCH (05:27)
[2018-08-02] MEDS: Pantoprazole TAB * 40 MG TAB PO SCH (05:27)
[2018-08-02] MEDS: Aspirin EC TAB* 81 MG TAB.EC PO SCH (08:34)
[2018-08-02] MEDS: BuPROPion XL* 150 MG TAB.XL PO SCH (08:34)
[2018-08-02] MEDS: Metoprolol Succinate XL TAB* 25 MG PO SCH (08:34)
[2018-08-02] MEDS: Docusate CAP* 100 MG PO SCH ×2 (08:34→20:44)
[2018-08-02] MEDS: Clopidogrel TAB* 75 MG PO SCH (08:34)
[2018-08-02] MEDS: Enalapril TAB* 5 MG PO SCH ×2 (08:35→17:56)
[2018-08-02] MEDS: Lactobacillus Acidophilus* 1 TAB PO SCH ×2 (08:35→20:49)
[2018-08-02] MEDS: COLLAGENASE 250 MG/GM TOPICAL SCH ×2 (08:35→20:48)
[2018-08-02] MEDS: Torsemide TAB* 20 MG PO SCH (08:35)
[2018-08-02] MEDS: Ondansetron ODT TAB* 4 MG PO PRN (09:34)
[2018-08-02] MEDS: ALPRAZolam TAB* 0.5 MG PO PRN ×2 (12:28→20:49)
--- NOTE | 2018-08-02 17:42 | PN ---
Progress Note Date of Service: 08/02/18 Note: SUGEY BELL was visited. Therapy notes read and reviewed. He complains of no appetite which may be from the Zosyn. He has pain with the dressing changes. Overall walks fairly well. Current Medications: Active Medications Generic Name Dose Route Start Last Admin Trade Name Freq PRN Reason Stop Dose Admin Acetaminophen 650 mg 07/27/18 16:51 08/02/18 00:35 Tylenol Tab* PO 650 mg Q6H PRN Administration FEVER/PAIN Hydrocodone Bitart/Acetaminophen 1 tab 07/27/18 17:04 08/02/18 16:46 [place] 5-325 Tab* PO 1 tab Q4H PRN Administration PAIN - MODERATE TO SEVERE Hydrocodone Bitart/Acetaminophen 2 tab 07/28/18 17:39 08/02/18 08:34 [place] 5-325 Tab* PO 2 tab Q4H PRN Administration PAIN - SEVERE Albuterol 2 puff 07/27/18 17:12 Ventolin Hfa Inhaler* INH Q6H PRN SOB/WHEEZING Alprazolam 0.5 mg 07/27/18 16:59 08/02/18 12:28 Xanax Tab* PO 0.5 mg BID PRN Administration ANXIETY Aspirin 81 mg 07/28/18 09:00 08/02/18 08:34 Aspirin Ec Tab* PO 81 mg DAILY EVELIO Administration Bupropion HCl 150 mg 07/28/18 09:00 08/02/18 08:34 Wellbutrin Xl * PO 150 mg DAILY EVELIO Administration Carbidopa/Levodopa 1 tab 07/27/18 18:36 08/01/18 20:29 Sinemet 25/100 Tab(*) PO 1 tab BID PRN Administration restless legs Clopidogrel Bisulfate 75 mg 07/28/18 09:00 08/02/18 08:34 Plavix Tab* PO 75 mg DAILY EVELIO Administration Collagenase 1 applic 07/27/18 21:00 08/02/18 08:35 Santyl 250 Mg/Gm Oint* TOPICAL 1 applic BID EVELIO Administration Docusate Sodium 100 mg 07/27/18 21:00 08/02/18 08:34 Colace Cap* PO 100 mg BID EVELIO Administration Enalapril Maleate 10 mg 07/28/18 09:00 08/02/18 08:35 Vasotec Tab* PO 10 mg DAILY EVELIO Administration Enalapril Maleate 5 mg 07/27/18 18:00 08/01/18 20:00 Vasotec Tab* PO 5 mg 1800 EVELIO Administration Heparin Sodium (Porcine) 1 ml 07/27/18 18:00 08/02/18 13:46 Heparin Flush Picc/Ml/Cvc(*) FLUSH 1 ml 0600,1800 EVELIO Administration Protocol Hydroxyzine HCl 25 mg 07/27/18 17:04 08/01/18 20:00 Atarax Tab* PO 25 mg Q6H PRN Administration ITCHING Piperacillin Sod/Tazobactam 100 mls @ 25 mls/hr 07/28/18 16:30 08/02/18 16:42 Sod 3.375 gm/ Sodium Chloride IVPB 25 mls/hr Q8H EVELIO Administration Lactobacillus Rhamnosus 1 tab 07/29/18 21:00 08/02/18 08:35 Lactobacillus Acidophilus* PO 1 tab BID EVELIO Administration Levothyroxine Sodium 150 mcg 07/28/18 06:00 08/02/18 05:27 Synthroid Tab* PO 150 mcg DAILY@0600 EVELIO Administration Metoprolol Succinate 25 mg 07/28/18 09:00 08/02/18 08:34 Toprol Xl Tab* PO 25 mg DAILY EVELIO Administration Mometasone Furoate 2 puff 07/27/18 18:00 08/01/18 18:07 Asmanex 220 Mcg Mdi * INH 2 puff QPM EVELIO Administration Ondansetron HCl 4 mg 07/28/18 09:41 08/02/18 09:34 Zofran Odt Tab* PO 4 mg Q6H PRN Administration NAUSEA Pantoprazole Sodium 40 mg 07/29/18 06:00 08/02/18 05:27 Protonix Tab* PO 40 mg DAILY@0600 EVELIO Administration Pharmacy Consult 1 note 07/28/18 13:00 Zosyn Per Pharmacy* FOLLOW UP .ZOSYN PER PHARMACY EVELIO Senna 2 tab 07/27/18 16:51 Senokot Tab* PO BEDTIME PRN CONSTIPATION Torsemide 10 mg 07/28/18 09:00 08/02/18 08:35 Demadex* PO 10 mg DAILY EVELIO Administration Vital Signs: Vital Signs Temp Pulse Resp BP Pulse Ox 97.4 F 63 18 149/91 94 08/02/18 15:39 08/02/18 15:39 08/02/18 17:12 08/02/18 15:39 08/02/18 17:12 Exam: HEENT: Right eye with hemorrhage LUNGS: Clear bilaterally HEART: Regular rhythm ABDOMEN: Soft, +BS EXTREMITIES: RLE Fasciotomy site looks clean. DP pulse present NEUROLOGIC: alert. 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 R eye hemorrhage: improving 3. Atrial fib: On ASA, B-eduardo 4. GI Bleed: PPI 5. Depression/anxiety: Xanax/Wellbutrin 6. RLE Fem-peroneal bypass: ASA/Plavix 7. Infection RLE: Zosyn IV day 02/23 8. DVT Prophylaxis: Wrapping legs. Can't use pharm ppx due to SAH 9. Edema: Wrapping legs, Demadex 08/02/18 17:42
[2018-08-02] MEDS: Mometasone 220 MCG MDI INH SCH (17:57)
[2018-08-02] MEDS: hydrOXYzine HCL TAB* 25 MG PO PRN (20:48)
[2018-08-02] MEDS: Carbidopa/Levodop 25/100 MG TAB(*) PO PRN (20:49)
[2018-08-03] MEDS: Piperacillin/Tazobac ADVAN(*) 3.375 GM in NS 0.9% 100 ML* 100 ML IVPB SCH ×3 (00:42→16:33)
[2018-08-03] MEDS: Acetaminophen TAB* 325 MG PO PRN ×2 (00:49→23:43)
[2018-08-03] MEDS: HYDROcodone/ACETAMIN 5-325 MG* 1 TAB PO PRN ×4 (02:09→18:11)
[2018-08-03] MEDS: Levothyroxine TAB* 150 MCG TAB PO SCH (05:30)
[2018-08-03] MEDS: Pantoprazole TAB * 40 MG TAB PO SCH (05:30)
[2018-08-03] MEDS: Ondansetron ODT TAB* 4 MG PO PRN ×2 (07:37→13:11)
[2018-08-03] MEDS: Metoprolol Succinate XL TAB* 25 MG PO SCH (09:28)
[2018-08-03] MEDS: Aspirin EC TAB* 81 MG TAB.EC PO SCH (09:28)
[2018-08-03] MEDS: Clopidogrel TAB* 75 MG PO SCH (09:28)
[2018-08-03] MEDS: BuPROPion XL* 150 MG TAB.XL PO SCH (09:28)
[2018-08-03] MEDS: Lactobacillus Acidophilus* 1 TAB PO SCH ×2 (09:28→21:07)
[2018-08-03] MEDS: Torsemide TAB* 20 MG PO SCH (09:28)
[2018-08-03] MEDS: Enalapril TAB* 5 MG PO SCH ×2 (09:29→18:11)
[2018-08-03] MEDS: COLLAGENASE 250 MG/GM TOPICAL SCH ×3 (09:30→20:17)
[2018-08-03] MEDS: Docusate CAP* 100 MG PO SCH ×2 (09:31→19:15)
--- NOTE | 2018-08-03 12:36 | PMRUTEAM ---
PMRU: Team Meeting Current Status: Nursing: Current Status Skin Deviations [hebert elbow] Abrasion Skin Deviations [Right Eye] Bruise Skin Deviations [Right Lower Incision,Wound Leg] Skin Deviation Description [ 1 per elbow, scabbed hebert elbow] Skin Deviation Description [ decreased redness to sclera Right Eye] Skin Deviation Description [ sutures intact to proximal end. open area with Right Lower Leg] beefy granulation tissue, no eschar noted. w-d drsg done only Bladder Current Status voids using urinal and also goes to br Bowel Current Status bm 08/02/18 Nutrition Current Status appetite poor Medication Current Status norco given for pain Physical Therapy: Current Status Bed Mobility Assistance Supervision Transfer Mobility Assistance Supervision Transfer/Bed Mobility Rolling Walker Recommended Devices Ambulation Assistance Supervision Ambulation Assistive Devices Rolling Walker Number of Feet Patient 80x2 Ambulated Stairs Assistance Supervision Stairs Recommended Devices Two Rails Number of Stairs 5x2 Objective Comments stars not attempted this date, patient demosntrates good abiltiy in thursday session, but complains of increasing RLE pain this session, will confirm independence in stairs tomorrow prior to planned D/C thursday Occupational Therapy: Current Status Upper Body Dressing Independent Lower Body Dressing Ind with Adaptive Equip Bathing Ind with Adaptive Equip Toileting Ind with Adaptive Equip Toilet Transfer Ind with Adaptive Equip Shower Transfer Progress N/A Eating Independent Rec Therapy: Current Status Summary of Assessment and RT assessment complete and pt. is aware of RT Clinical Impression services. Pt. is interactive during leisure visits but has declined need for activities. Treatment Goals Pt. will engage in leisure activities while on the unit. Treatment Plan Provide RT services and encourage involvement. Social Work: Current Status Discharge Plan return home with home care svs and family support Potential for Family Training pt's is participating in training with [facility] Anticipated Discharge Home Destination Discharge With home care svs and family support Goals: Physical Therapy: Initial Goals Bed Mobility Assistance Independent Transfer Mobility Assistance Independent Transfer/Bed Mobility Rolling Walker Recommended Devices Ambulation Independent Ambulation Recommended Devices Rolling Walker Ambulation Distance 150 Stairs Assistance Independent Stair Recommended Devices One Rail Number of Stairs 6 Home Exercise Program Independent Assistance Physical Therapy: Updated Goals Transfer/Bed Mobility Rolling Walker Recommended Devices Occupational Therapy: Initial Goals Goals to be Completed in (Days 7 ) Upper Body Bathing Routine Independent Lower Body Bathing Routine Modified Independent with Upper Body Dressing Routine Independent Lower Body Dressing Routine Modified Independent with Toilet Hygeine and Clothing Modified Independent with Management Routine Toilet Transfer Routine Modified Independent with Step-In Shower Transfer Modified Independent with Routine Functional Transfers for ADL Modified Independent with Grooming Routine Independent Feeding Routine Independent Nursing: Goals Bladder Goal independent Bowel Goal independent Nutrition Goal 80% of all meals Medication Goal supervision Nutrition: Goals Intervention Goals 1. adequate po intake to maintain stable wt, hydration, and lean body mass 2. achieve/maintain regular bowel pattern without constipation/diarrhea 3. tolerance to po intake w/o GI distress Social Work: Goals Discharge Plan return home with home care svs and family support Potential for Family Training pt's is participating in training with [facility] Anticipated Discharge Home Destination Discharge With home care svs and family support Care Plan: Care Plan ADL's - Improve/Maintain Start: 07/28/18 15:50 Freq: DAILY Status: Active Target: Protocol: Activity Type Activity Date Activity User E-Sign Co-Sign Detail Recorded Client Recorded Date Recorded By Document 08/03/18 11:28 [id number] [id number] 08/03/18 11:28 [id number] 08/03/18 11:28 PMRU Outcome: ADL's/ADL Transfers Orders/Interventions Occupational Therapy Evaluation & Treatment Communication Tool in Patient Room Device Yes Address Deficits Secondary To: SAH Patient to receive OT 5x/wk for 60-120 Therex min/day Self Care Management Group Therapy UE/LE ADL's with Assist Yes: Lior ADL Transfers with Assist Yes: Lior Toileting: Transfers,Clothing Management Yes: Lior ,Hygeine w/Assist Light Kitchen/Laundry w/Assist No Progression Toward Outcome/Goals Progressing Outcome/Goals Met Pt participated well in ADL treatment session this date, able to complete entire ADL routine without physical assistance with use of AE and FWW in bathroom . Coping/Psych-Improve/Maintain Start: 07/29/18 01:36 Freq: QSHIFT Status: Active Target: Protocol: Activity Type Activity Date Activity User E-Sign Co-Sign Detail Recorded Client Recorded Date Recorded By Document 08/03/18 09:00 [id number] [id number] 08/03/18 12:04 [id number] 08/03/18 09:00 PMRU Outcome: Coping/Psychosocial Coping Outcome/Goals Verbalization of Sense of Control Over Health Status Utilization of Appropriate Problem Solving Techniques Willingness to Participate in Treatment Plan and Basic Needs Utilization of Available Support Systems Absence of Destructive Behavior to Self/Others Psychosocial Outcome/Goals Cooperate/ Participate in Plan Progression Toward Outcome/Goals - Progressing Coping Progression Toward Outcome/Goals - Progressing Psychosocial Discharge Planning - Improve/Maintain Start: 07/29/18 01:36 Freq: DAILY Status: Active Target: Protocol: Activity Type Activity Date Activity User E-Sign Co-Sign Detail Recorded Client Recorded Date Recorded By Document 08/02/18 23:39 [id number] [id number] 08/02/18 23:39 [id number] 08/02/18 23:39 PMRU Outcome: Discharge Planning Update Patient Family No Outcome/Goals Demonstrates Understanding of Discharge Plan Progression Toward Outcome/Goals Progressing Education-Improve/Maintain Start: 07/29/18 01:36 Freq: QSHIFT Status: Active Target: Protocol: Activity Type Activity Date Activity User E-Sign Co-Sign Detail Recorded Client Recorded Date Recorded By Document 08/03/18 09:00 [id number] [id number] 08/03/18 12:04 [id number] 08/03/18 09:00 PMRU Outcome: Education Outcome/Goals Demonstrate/ Verbalize Understanding of Written Discharge Instructions Encourage Questions Progression Toward Outcome/Goals Progressing /GI-Improve/Maintain Start: 07/29/18 01:36 Freq: QSHIFT Status: Active Target: Protocol: Activity Type Activity Date Activity User E-Sign Co-Sign Detail Recorded Client Recorded Date Recorded By Document 08/03/18 09:00 [id number] 08/03/18 12:04 [id number] 08/03/18 09:00 PMRU Outcome: Genitourinary/ Gastrointestinal Genitourinary- Outcome/Goals Maintain/ Achieve Urinary Continence Remain Free of Hospital- Acquired UTI Gastrointestinal-Outcome/Goals Maintain/ Achieve Bowel Regularity in Accordance with Pt's Baseline Prevent Constipation Laxatives as Ordered Progression Toward Outcome/Goals - Progressing Progression Toward Outcome/Goals - GI Progressing Outcome/Goals Met Comment patient declined colace this am Gastrointestinal-Improve/Maintain Start: 07/28/18 00:33 Freq: 08,20 Status: Complete Target: Protocol: Activity Type Activity Date Activity User E-Sign Co-Sign Detail Recorded Client Recorded Date Recorded By Document 07/28/18 00:34 [id number] 07/28/18 00:34 [id number] 07/28/18 00:34 Outcome: Gastrointestinal Outcome/Goals Maintain/ Achieve Bowel Regularity in Accordance with Pt's Baseline Progression Toward Outcome/Goals Progressing Infection-Improve/Maintain Start: 07/28/18 00:33 Freq: 08,20 Status: Active Target: Protocol: Activity Type Activity Date Activity User E-Sign Co-Sign Detail Recorded Client Recorded Date Recorded By Document 08/03/18 09:00 [id number] [email or web address] 08/03/18 12:04 [id number] 08/03/18 09:00 Outcome: Infection Outcome/Goals Remain Free of Infection Understand Infection Prevention Strategies Improve or Eliminate Infection Progression Toward Outcome/Goals Progressing Metabolic Status-Improve/Maintain Start: 07/28/18 00:33 Freq: 08,20 Status: Complete Target: Protocol: Activity Type Activity Date Activity User E-Sign Co-Sign Detail Recorded Client Recorded Date Recorded By Document 07/28/18 00:34 [id number] 07/28/18 00:34 [id number] 07/28/18 00:34 Outcome: Metabolic Status Outcome/Goals Maintain/ Improve Metabolic Status Demonstrate Knowledge of Prevention/ Treatment of Metabolic Imbalances Progression Toward Outcome/Goals Progressing Neurological- Improve/Maintain Start: 07/29/18 01:36 Freq: QSHIFT Status: Active Target: Protocol: Activity Type Activity Date Activity User E-Sign Co-Sign Detail Recorded Client Recorded Date Recorded By Document 08/03/18 09:00 [id number] 08/03/18 12:04 [id number] 08/03/18 09:00 PMRU Outcome: Neurological Weakness/Aphasia Weakness Outcome/Goals Maintain/ Achieve Baseline Neurological Status Maintain/ Improve Strength/ROM Progression Toward Outcome/Goals Progressing Pain/Comfort- Improve/Maintain Start: 07/29/18 01:36 Freq: QSHIFT Status: Active Target: Protocol: Activity Type Activity Date Activity User E-Sign Co-Sign Detail Recorded Client Recorded Date Recorded By Document 08/03/18 09:00 [id number] 08/03/18 12:04 [id number] 08/03/18 09:00 PMRU Outcome: Pain/Comfort Outcome/Goals Demonstrates Knowledge and Use of Available Comfort Measures Achieves Acceptable Comfort/Pain Level as Determined by Patient/Condit Maintain Comfort Level Allowing Patient to Fully Participate in Rehab Progression Toward Outcome/Goals Progressing Outcome/Goals Met Comment norco given Safety- Improve/Maintain Start: 07/29/18 01:36 Freq: QSHIFT Status: Active Target: Protocol: Activity Type Activity Date Activity User E-Sign Co-Sign Detail Recorded Client Recorded Date Recorded By Document 08/03/18 09:00 [id number] 08/03/18 12:04 [id number] 08/03/18 09:00 PMRU Outcome: Safety Outcome/Goals Remain Free of Injury or Harm Prevent Falls/ Injury Progression Toward Outcome/Goals Progressing Outcome/Goals Met Comment BA and PA armed Skin- Improve/Maintain Start: 07/29/18 01:36 Freq: QSHIFT Status: Active Target: Protocol: Activity Type Activity Date Activity User E-Sign Co-Sign Detail Recorded Client Recorded Date Recorded By Document 08/03/18 09:00 [id number] 08/03/18 12:04 [id number] 08/03/18 09:00 PMRU Outcome: Skin Skin Risk Level Medium Skin Orders Dressing Change Outcome/Goals Maintain/ Improve Skin Intergrity Maintain/ Improve Wound Status Surgical Incisions Healing Progression Toward Outcome/Goals Progressing Medicine Note: Length of Stay: 1 day Anticipated Discharge Destination: Home Tentative Discharge Date: 08/04/18 Discharged to: Home
[2018-08-03] MEDS: Mometasone 220 MCG MDI INH SCH (18:13)
--- NOTE | 2018-08-03 18:35 | PN ---
Progress Note Date of Service: 08/03/18 Note: SUGEY Thao MAGENANTONIO was visited. Therapy notes read and reviewed. He was discussed in interdisciplinary team rounds. He is ready for discharge in the morning. Had training with the home infusion service today Current Medications: Active Medications Generic Name Dose Route Start Last Admin Trade Name Freq PRN Reason Stop Dose Admin Acetaminophen 650 mg 07/27/18 16:51 08/03/18 00:49 Tylenol Tab* PO 650 mg Q6H PRN Administration FEVER/PAIN Hydrocodone Bitart/Acetaminophen 1 tab 07/27/18 17:04 08/03/18 13:14 [place] 5-325 Tab* PO 1 tab Q4H PRN Administration PAIN - MODERATE TO SEVERE Hydrocodone Bitart/Acetaminophen 2 tab 07/28/18 17:39 08/03/18 18:11 [place] 5-325 Tab* PO 2 tab Q4H PRN Administration PAIN - SEVERE Albuterol 2 puff 07/27/18 17:12 Ventolin Hfa Inhaler* INH Q6H PRN SOB/WHEEZING Alprazolam 0.5 mg 07/27/18 16:59 08/02/18 20:49 Xanax Tab* PO 0.5 mg BID PRN Administration ANXIETY Aspirin 81 mg 07/28/18 09:00 08/03/18 09:28 Aspirin Ec Tab* PO 81 mg DAILY [facility] Administration Bupropion HCl 150 mg 07/28/18 09:00 08/03/18 09:28 Wellbutrin Xl * PO 150 mg DAILY [facility] Administration Carbidopa/Levodopa 1 tab 07/27/18 18:36 08/02/18 20:49 Sinemet 25/100 Tab(*) PO 1 tab BID PRN Administration restless legs Clopidogrel Bisulfate 75 mg 07/28/18 09:00 08/03/18 09:28 Plavix Tab* PO 75 mg DAILY [facility] Administration Collagenase 1 applic 07/27/18 21:00 08/03/18 10:23 Santyl 250 Mg/Gm Oint* TOPICAL Not Given BID [facility] Docusate Sodium 100 mg 07/27/18 21:00 08/03/18 09:31 Colace Cap* PO Not Given BID [facility] Enalapril Maleate 10 mg 07/28/18 09:00 08/03/18 09:29 Vasotec Tab* PO 10 mg DAILY [facility] Administration Enalapril Maleate 5 mg 07/27/18 18:00 08/03/18 18:11 Vasotec Tab* PO 5 mg 1800 [facility] Administration Heparin Sodium (Porcine) 1 ml 07/27/18 18:00 08/03/18 17:21 Heparin Flush Picc/Ml/Cvc(*) FLUSH Not Given 0600,1800 [facility] Protocol Hydroxyzine HCl 25 mg 07/27/18 17:04 08/02/18 20:48 Atarax Tab* PO 25 mg Q6H PRN Administration ITCHING Piperacillin Sod/Tazobactam 100 mls @ 25 mls/hr 07/28/18 16:30 08/03/18 16:33 Sod 3.375 gm/ Sodium Chloride IVPB 25 mls/hr Q8H [facility] Administration Lactobacillus Rhamnosus 1 tab 07/29/18 21:00 08/03/18 09:28 Lactobacillus Acidophilus* PO 1 tab BID [facility] Administration Levothyroxine Sodium 150 mcg 07/28/18 06:00 08/03/18 05:30 Synthroid Tab* PO 150 mcg DAILY@0600 [facility] Administration Metoprolol Succinate 25 mg 07/28/18 09:00 08/03/18 09:28 Toprol Xl Tab* PO 25 mg DAILY [facility] Administration Mometasone Furoate 2 puff 07/27/18 18:00 08/03/18 18:13 Asmanex 220 Mcg Mdi * INH 2 puff QPM [facility] Administration Ondansetron HCl 4 mg 07/28/18 09:41 08/03/18 13:11 Zofran Odt Tab* PO 4 mg Q6H PRN Administration NAUSEA Pantoprazole Sodium 40 mg 07/29/18 06:00 08/03/18 05:30 Protonix Tab* PO 40 mg DAILY@0600 [facility] Administration Pharmacy Consult 1 note 07/28/18 13:00 Zosyn Per Pharmacy* FOLLOW UP .ZOSYN PER PHARMACY [facility] Senna 2 tab 07/27/18 16:51 Senokot Tab* PO BEDTIME PRN CONSTIPATION Torsemide 10 mg 07/28/18 09:00 08/03/18 09:28 Demadex* PO 10 mg DAILY [facility] Administration Vital Signs: Vital Signs Temp Pulse Resp BP Pulse Ox 97.5 F 74 18 150/78 94 08/03/18 17:00 08/03/18 16:06 08/03/18 18:11 08/03/18 16:06 08/03/18 17:22 Exam: HEENT: Right eye with hemorrhage, slowly clearing LUNGS: Clear bilaterally HEART: Regular rhythm ABDOMEN: Soft, +BS EXTREMITIES: RLE Fasciotomy site looks clean. DP pulse present NEUROLOGIC: alert. 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 R eye hemorrhage: improving 3. Atrial fib: On ASA, B-eduardo 4. GI Bleed: PPI 5. Depression/anxiety: Xanax/Wellbutrin 6. RLE Fem-peroneal bypass: ASA/Plavix 7. Infection RLE: Zosyn IV day 03/26 8. DVT Prophylaxis: Wrapping legs. Can't use pharm ppx due to SAH 9. Edema: Wrapping legs, Demadex 08/03/18 18:35
[2018-08-03] MEDS: Carbidopa/Levodop 25/100 MG TAB(*) PO PRN (21:07)
[2018-08-03] MEDS: hydrOXYzine HCL TAB* 25 MG PO PRN (21:07)
[2018-08-03] MEDS: ALPRAZolam TAB* 0.5 MG PO PRN (21:07)
[2018-08-04] MEDS: Piperacillin/Tazobac ADVAN(*) 3.375 GM in NS 0.9% 100 ML* 100 ML IVPB SCH ×2 (00:42→08:40)
[2018-08-04] MEDS: HYDROcodone/ACETAMIN 5-325 MG* 1 TAB PO PRN ×2 (03:26→11:15)
[2018-08-04 05:15] LABS: ALT < 3 U/L (7-52); AST 13 U/L (13-39); Albumin 3.2 g/dL (3.2-5.2); Albumin/Globulin Ratio 1.1 (1-3); Alkaline Phosphatase 58 U/L (34-104); Anion Gap 7 mmol/L (2-11); BUN/Creatinine Ratio 14.3 (8-20); Blood Urea Nitrogen 17 mg/dL (6-24); CO2 Carbon Dioxide 23 mmol/L (22-32); Calcium 8.6 mg/dL (8.6-10.3); Chloride 109 mmol/L (101-111); EGFR African American 70.6 (>60); EGFR Non-African American 58.4 (>60); Glucose 85 mg/dL (70-100); Potassium 3.7 mmol/L (3.5-5.0); Sodium 139 mmol/L (135-145); Total Protein 6.2 g/dL (6.4-8.9)
[2018-08-04] MEDS: Pantoprazole TAB * 40 MG TAB PO SCH (06:14)
[2018-08-04] MEDS: Levothyroxine TAB* 150 MCG TAB PO SCH (06:14)
[2018-08-04] MEDS: Acetaminophen TAB* 325 MG PO PRN (06:16)
[2018-08-04 06:52] LABS: ALT < 3 U/L (7-52); AST 13 U/L (13-39); Albumin 3.3 g/dL (3.2-5.2); Albumin/Globulin Ratio 1.1 (1-3); Alkaline Phosphatase 63 U/L (34-104); Anion Gap 8 mmol/L (2-11); BUN/Creatinine Ratio 14.7 (8-20); Blood Urea Nitrogen 17 mg/dL (6-24); C Reactive Protein 44.02 mg/L (<8.01); CO2 Carbon Dioxide 23 mmol/L (22-32); Calcium 9.1 mg/dL (8.6-10.3); Chloride 109 mmol/L (101-111); EGFR African American 72.8 (>60); EGFR Non-African American 60.1 (>60); Glucose 85 mg/dL (70-100); Potassium 3.8 mmol/L (3.5-5.0); Sodium 140 mmol/L (135-145); Total Protein 6.3 g/dL (6.4-8.9)
[2018-08-04 07:32] LABS: ABS Basophils 0.2 10^3/ul (0-0.2); ABS Eosinophils 0.6 10^3/ul (0-0.6); ABS Lymphocytes 0.7 10^3/ul (1.0-4.8); ABS Monocytes 0.7 10^3/ul (0-0.8); ABS Neutrophils 3.7 10^3/ul (1.5-7.7); ABS Nucleated RBC 0 10^3/ul; Eosinophil % 9.4 %; Hematocrit 29 % (42-52); Hemoglobin 9.3 g/dl (14.0-18.0); Lymphocyte % 12.6 %; Mean Corpuscular HGB Conc 32 g/dl (31-36); Mean Corpuscular Hemoglobin 30 pg (27-31); Mean Corpuscular Volume 94 fL (80-94); Mean Platelet Volume 8.3 fL (7.4-10.4); Nucleated Red Blood Cells % 0.2; Platelet Count 33 10^3/ul (150-450); Red Blood Count 3.06 10^6/ul (4.00-5.40); Red Cell Distribution Width 16 % (10.5-15); White Blood Count 5.9 10^3/ul (3.5-10.8)
[2018-08-04 08:00] VITALS: BP 152/99
[2018-08-04] MEDS: BuPROPion XL* 150 MG TAB.XL PO SCH (08:42)
[2018-08-04] MEDS: Clopidogrel TAB* 75 MG PO SCH (08:42)
[2018-08-04] MEDS: Torsemide TAB* 20 MG PO SCH (08:42)
[2018-08-04] MEDS: Lactobacillus Acidophilus* 1 TAB PO SCH (08:42)
[2018-08-04] MEDS: Aspirin EC TAB* 81 MG TAB.EC PO SCH (08:44)
[2018-08-04] MEDS: Enalapril TAB* 5 MG PO SCH (08:44)
[2018-08-04] MEDS: COLLAGENASE 250 MG/GM TOPICAL SCH ×2 (08:44→10:59)
[2018-08-04] MEDS: Docusate CAP* 100 MG PO SCH (08:44)
[2018-08-04] MEDS: Metoprolol Succinate XL TAB* 25 MG PO SCH (08:46)
[2018-08-04 09:30] LABS: Erythrocyte Sed Rate 41 mm/Hr (0-40)
[2018-08-04] MEDS: Ondansetron ODT TAB* 4 MG PO PRN (09:52)
--- NOTE | 2018-08-04 14:35 | CONSULT ---
Consult Consult: WOUND CONSULT NOTE Date of Service: 08/04/18 History: Interval History: Patient seen and examined at bedside. No complaints today and is anxious for discharge to home later today. He states that he has a follow-up appointment soon with the vascular surgeon. Denies fever or chills. Ms. Kendall presented to the the acute rehab unit [facility] after falling and hitting his head resulting in a SAH. He has been doing well and progressing with therapy and is felt to be ready for discharge home later today. Previously Ms. Kendall under went a right LE fem-peroneal bypass and fasciotomy. He continues to have an open fasciotomy site. Past Medical/Family/Social History: Family History: Unchanged from Admission Social History: Unchanged from Admission Past Medical History: Unchanged from Admission Objective: Active Medications: Metoprolol Succinate (Toprol Xl Tab*) 25 mg PO DAILY [facility] Enalapril Maleate (Vasotec Tab*) 10 mg PO DAILY [facility] Acetaminophen (Tylenol Tab*) 650 mg PO Q6H PRN Reason: FEVER/PAIN Hydrocodone Bitart/Acetaminophen ([place] 5-325 Tab*) 1 tab PO Q4H PRN Reason: PAIN - MODERATE TO SEVERE Hydrocodone Bitart/Acetaminophen ([place] 5-325 Tab*) 2 tab PO Q4H PRN Reason: PAIN - SEVERE Albuterol (Ventolin Hfa Inhaler*) 2 puff INH Q6H PRN Reason: SOB/WHEEZING Alprazolam (Xanax Tab*) 0.5 mg PO BID PRN Reason: ANXIETY Aspirin (Aspirin Ec Tab*) 81 mg PO DAILY [facility] Bupropion HCl (Wellbutrin Xl *) 150 mg PO DAILY [facility] Carbidopa/Levodopa (Sinemet 25/100 Tab(*)) 1 tab PO BID PRN Reason: restless legs Clopidogrel Bisulfate (Plavix Tab*) 75 mg PO DAILY [facility] Collagenase (Santyl 250 Mg/Gm Oint*) 1 applic TOPICAL BID [facility] Docusate Sodium (Colace Cap*) 100 mg PO BID [facility] Enalapril Maleate (Vasotec Tab*) 5 mg PO 1800 [facility] Heparin Sodium (Porcine) (Heparin Flush Picc/Ml/Cvc(*)) 1 ml FLUSH 0600,1800 [facility]; Protocol Hydroxyzine HCl (Atarax Tab*) 25 mg PO Q6H PRN Reason: ITCHING Lactobacillus Rhamnosus (Lactobacillus Acidophilus*) 1 tab PO BID [facility] Levothyroxine Sodium (Synthroid Tab*) 150 mcg PO DAILY@0600 [facility] Mometasone Furoate (Asmanex 220 Mcg Mdi *) 2 puff INH QPM [facility] Ondansetron HCl (Zofran Odt Tab*) 4 mg PO Q6H PRN Reason: NAUSEA Pantoprazole Sodium (Protonix Tab*) 40 mg PO DAILY@0600 [facility] Pharmacy Consult (Zosyn Per Pharmacy*) 1 note FOLLOW UP .ZOSYN PER PHARMACY [facility] Piperacillin Sod/Tazobactam (Sod 3.375 gm/ Sodium Chloride) 100 mls @ 25 mls/ hr IVPB Q8H [facility] Senna (Senokot Tab*) 2 tab PO BEDTIME PRN Reason: CONSTIPATION Torsemide (Demadex*) 10 mg PO DAILY [facility] Vital Signs: 08/04/18 06:14 Temperature 98.3 F Temperature Oral Source Pulse Rate 62 Respiratory 18 Rate Blood Pressure 156/96 (mmHg) Blood Pressure 111 Mean O2 Sat by Pulse 97 Oximetry Patient on Room Yes Air Exam: General: NAD laying in bed Cardiovascular: Bilateral LE edema 2 + Neurological: Alert and Oriented Skin: Right medial lower leg fasciotomy site with granulation tissue and yellow slough in the wound base. There are also a few exposed black sutures (seen in the lower portion of the wound. [place] and sutures seen above the open area. There is also an area of black eschar in the upper incision line. Lower open incision - 14.2 cm x 4.8 cm x 1.2 cm. There is an area that communicates to another open area near to top of the larger incision. Upper open incision - 1.3 cm x 1.2. cm x 1 cm. Data: Labs: 08/04/18 08/04/18 06:22 06:22 WBC 5.9 Hgb 9.3 L Hct 29 L Plt Count 33 L D Sodium 140 Potassium 3.8 Chloride 109 Carbon Dioxide 23 BUN 17 Creatinine 1.16 Total Protein 6.3 L Albumin 3.3 Assessment/Plan: Mr. Kendall is an 82 yo male with PMH significant for 1. Open fasciotomy of the right LE. The incision is healing and there is less yellow slough in the wound bed this week. Continue to use Santyl on the areas of yellow slough. Continue to use wet to dry dressing to the rest of the wound bed and cover with a dry gauze. Continue to follow up with vascular surgeon as previously planned. Continue compression wraps to bilateral LEs. VTE PPX: Compression sleeves, unable to take chemical DVT prophylaxis in the setting of SAH. Diet: Regular diet Code Status: Full Code Disposition: Inpatient. Disposition per Primary Team. Time Spent: A total of 15 minutes was spent in direct patient care. Attending: Dr. Donna Fritz MD
== END 2018-08-04 13:45 | disposition home health service (06) | DRG 946 ==
LOC: PMRU 15:53
PROVIDERS: ADMIT Physical Medicine & Rehabilitation; ATTEND Physical Medicine & Rehabilitation
PROC: F07Z5ZZ Bed Mobility Treatment (ICD-10-PCS; principal; 2018-07-27)
PROC: F07Z9ZZ Gait Training/Functional Ambulation Treatment (ICD-10-PCS; 2018-07-27)
PROC: F07Z8ZZ Transfer Training Treatment (ICD-10-PCS; 2018-07-27)
PROC: F08Z0ZZ Bathing/Showering Techniques Treatment (ICD-10-PCS; 2018-07-27)
PROC: F08Z1ZZ Dressing Techniques Treatment (ICD-10-PCS; 2018-07-27)
PROC: F08Z3ZZ Feeding/Eating Treatment (ICD-10-PCS; 2018-07-27)
DX: S06.6X9D Traumatic subarachnoid hemorrhage with loss of consciousness of unspecified duration, subsequent encounter (principal); W18.30XD Fall on same level, unspecified, subsequent encounter; T81.49XD Infection following a procedure, other surgical site, subsequent encounter; X58.XXXD Exposure to other specified factors, subsequent encounter; F41.9 Anxiety disorder, unspecified; J44.9 Chronic obstructive pulmonary disease, unspecified; E03.9 Hypothyroidism, unspecified; I48.91 Unspecified atrial fibrillation; G47.30 Sleep apnea, unspecified; F32.9 Major depressive disorder, single episode, unspecified; I71.4 Abdominal aortic aneurysm, without rupture; R60.0 Localized edema; H35.30 Unspecified macular degeneration; H57.89 Other specified disorders of eye and adnexa; K21.9 Gastro-esophageal reflux disease without esophagitis; M48.00 Spinal stenosis, site unspecified; Z79.02 Long term (current) use of antithrombotics/antiplatelets; Z79.82 Long term (current) use of aspirin; Z79.899 Other long term (current) drug therapy; Z88.8 Allergy status to other drugs, medicaments and biological substances; Z98.890 Other specified postprocedural states
CPT/HCPCS: 36415; 80053; 85025; 85060; 85652; 86140; A9270-GY; J2543